=== PATIENT | female | born 1930 | race Caucasian/White ===

== ENCOUNTER 2016-09-04 12:04 | Inpatient (IN) | payer MEDICARE ==
[~2016-09-04] VITALS: Ht 167.6 cm; Wt 74.8 kg
[~2016-09-04 12:04] MED LIST: ALBU0.63 NEB; AMOX1TAB61 PO; AZIT250T6 PO; FLUT1DIS IH; HYDR-971 PO; Hydrocodone/Acetaminophen PO; TIOT18CA IH; TRIA1TAB2 PO; immune globulin; oxygen
--- NOTE | 2016-09-04 12:33 | RAD ---
EXAM: Chest, single view. HISTORY: Shortness of air. COMPARISON: 10/29/2014. FINDINGS: A frontal view of the chest is obtained. There is stable mild left hemithorax volume loss with elevation of the hemidiaphragm and leftward mediastinal shift. There is a stable trace left pleural effusion or pleural thickening with lower lobe airspace disease. There is no pneumothorax. The heart is upper normal in size. IMPRESSION: Stable left hemithorax volume loss with trace left pleural effusion and lower lobe airspace disease. The stability of this finding compared to prior studies favors pleural plaque most scarring rather than infiltrate. This is better characterized on a CT dated 03/01/2014.
[2016-09-04] MEDS ORDERED: PREDNISONE 10 MG TABLET PO ONE (12:45)
[2016-09-04] MEDS ORDERED: IPRATRPIUM/ALBUTEROL 0.5/2.5MG 3 ML NEBU. NEB ONE (12:45)
[2016-09-04] MEDS ORDERED: PRED50TA PO (12:49)
--- NOTE | 2016-09-04 12:49 | PHYS DOC ---
Past Medical History Past Medical History: COPD, Hypertension, Lung Disease, Pneumonia, Other Additional Past Medical Histor: STOMACH ULCERS,BRONCHIECTASIS Past Surgical History: Appendectomy, Hip Replacement, Hysterectomy, Knee Replacement, Tonsillectomy, Other Additional Past Surgical Histo: SHOULDER, L LOBECTOMY,BLADDER,CATARACT, RECTOCELE, RT KNEE, Alcohol Use: None Drug Use: None Adult General Chief Complaint Chief Complaint: SHORTNESS OF BREATH HPI HPI 85-year-old female presenting to the emergency department today with shortness of breath for greater than 24 hours. It is associated with cough without fever. She has been using her nebulizer at home with mild relief. She also has a Spiriva inhaler. She has a history of left pulmonary lobectomy it is worse with exertion. Improved with rest. She denies fevers or chills. Her cough is nonproductive. Location lungs. Duration intermittent. She denies hemoptysis, unilateral leg swelling, personal or family history of blood clotting disorders. Review of systems is negative for chest pain neck pain back pain or shoulder pain. Negative for diaphoresis nausea vomiting. She denies bloody stools. All other review of systems is negative unless otherwise noted in history of present illness. Review of Systems Review of Systems SEE ABOVE. Current Medications Current Medications Current Medications Medications (Trade) Dose Ordered Sig/Sudhakar Start Time Stop Time Status Last Admin Dose Admin Albuterol/ Ipratropium (Duoneb) 3 ml 1X ONCE 09/04/16 12:45 09/04/16 12:46 DC 09/04/16 12:32 3 ML Prednisone (Prednisone) 50 mg 1X ONCE 09/04/16 12:45 09/04/16 12:46 DC 09/04/16 12:44 50 MG Allergies Allergies Allergies Coded Allergies Type Severity Reaction Last Updated Verified No Known Drug Allergies 09/28/13 No Physical Exam Physical Exam Constitutional: Well developed, well nourished, no acute distress, non-toxic appearance. HENT: Normocephalic, atraumatic, bilateral external ears normal, oropharynx moist, no oral exudates, nose normal. [] Eyes: PERRLA, EOMI, conjunctiva normal, no discharge. Neck: Normal range of motion, no tenderness, supple, no stridor. [] Cardiovascular:Heart rate regular rhythm, no murmur Lungs & Thorax: Wheezing bilaterally with prolonged expiratory phase. No crackles present. Abdomen: Bowel sounds normal, soft, no tenderness, no masses, no pulsatile masses. Skin: Warm, dry, no erythema, no rash. [] Back: No tenderness, no CVA tenderness. Extremities: No tenderness, no cyanosis, no clubbing, ROM intact, no edema. [] Neurologic: Alert and oriented X 3, normal motor function, normal sensory function, no focal deficits noted. Psychologic: Affect normal, judgement normal, mood normal. [] Current Patient Data Vital Signs Vital Signs Date Time Temp Pulse Resp B/P Pulse Ox O2 Delivery O2 Flow Rate FiO2 09/04/16 14:00 78 25 119/66 92 Nasal Cannula 2 09/04/16 12:19 98.2 98.2 Lab Values Laboratory Tests Test 09/04/16 12:45 White Blood Count 6.0x10^3/uL (4.0-11.0) Red Blood Count 3.39x10^6/uL (3.50-5.40) L Hemoglobin 10.9g/dL (12.0-15.5) L Hematocrit 32.9% (36.0-47.0) L Mean Corpuscular Volume 97fL (79-100) Mean Corpuscular Hemoglobin 32pg (25-35) Mean Corpuscular Hemoglobin Concent 33g/dL (31-37) Red Cell Distribution Width 14.2% (11.5-14.5) Platelet Count 178x10^3/uL (140-400) Neutrophils (%) (Auto) 61% (31-73) Lymphocytes (%) (Auto) 26% (24-48) Monocytes (%) (Auto) 9% (0-9) Eosinophils (%) (Auto) 4% (0-3) H Basophils (%) (Auto) 1% (0-3) Neutrophils # (Auto) 3.6x10^3uL (1.8-7.7) Lymphocytes # (Auto) 1.5x10^3/uL (1.0-4.8) Monocytes # (Auto) 0.5x10^3/uL (0.0-1.1) Eosinophils # (Auto) 0.2x10^3/uL (0.0-0.7) Basophils # (Auto) 0.1x10^3/uL (0.0-0.2) Sodium Level 141mmol/L (136-145) Potassium Level 3.5mmol/L (3.5-5.1) Chloride Level 104mmol/L (98-107) Carbon Dioxide Level 33mmol/L (21-32) H Anion Gap 4 (6-14) L Blood Urea Nitrogen 19mg/dL (7-20) Creatinine 0.7mg/dL (0.6-1.0) Estimated GFR (Cockcroft-Gault) 79.9 Glucose Level 93mg/dL (70-99) Calcium Level 9.4mg/dL (8.5-10.1) Total Bilirubin 0.4mg/dL (0.2-1.0) Direct Bilirubin 0.1mg/dL (0.0-0.2) Aspartate Amino Transferase (AST) 18U/L (15-37) Alanine Aminotransferase (ALT) 20U/L (14-59) Alkaline Phosphatase 50U/L (46-116) Troponin I Quantitative 0.036ng/mL (0.000-0.055) LF-Nld-H-Type Natriuretic Peptide 172pg/mL (0-449) Total Protein 7.1g/dL (6.4-8.2) Albumin 3.5g/dL (3.4-5.0) Lipase 80U/L (73-393) Laboratory Tests 09/04/16 12:45 Laboratory Tests 09/04/16 12:45 EKG EKG EKG shows sinus rhythm with a regular rate. [place] is leftward. Intervals show mildly prolonged QRS. ST segments are congruent [] Radiology/Procedures Radiology/Procedures [] Course & Med Decision Making Course & Med Decision Making Pertinent Labs and Imaging studies reviewed. (See chart for details) [] 85-year-old female presenting to the emergency department today with shortness of breath. Vital signs afebrile. Normal heart rate. Blood pressure elevated. Saturating 94% on room air. Patient was not working hard to breathe. She was comfortable in the exam room. Pertinent physical exam shows wheezing bilaterally. No evidence of DVTs of the legs. Blood work obtained. DuoNeb and steroids given in the emergency department. While the patient was in the emergency department her oxygen saturations were noticed to drop into the mid 80s. She is placed on 2 L nasal cannula and unfortunately were unable to get her off the oxygen in the emergency department. CBC shows mild anemia. Chemistry panel unremarkable. Troponin within the reference range of normal. Chest x-ray shows chronic bronchiectasis. She was then admitted to our hospital for further evaluation workup and care. Dragon Disclaimer Dragon Disclaimer This electronic medical record was generated, in whole or in part, using a voice recognition dictation system. Departure Departure Impression: Primary Impression: Bronchiectasis Additional Impressions: COPD exacerbation Hypoxia Disposition: HOME, SELF-CARE Condition: STABLE Referrals: MICK HOUGH MD (PCP) Patient Instructions: Shortness of Breath, [id number] Additional Instructions: Thank you for allowing us to participate in your care today. Followup with your primary care physician in 3 days if your symptoms do not improve. If you do not have a primary care provider you can ask for a list of our primary care providers. Return to the emergency department you have any new or concerning findings. This should be evaluated by the primary care physician and any necessary consulting services for continued management within a few days after discharge. Return to emergency room if you have any new or concerning symptoms including but not limited to fever, chills, nausea, vomiting, intractable pain, any new rashes, chest pain, shortness of air, uncontrolled bleeding, difficulty breathing, and/or vision loss. Scripts Prednisone 50 Mg [id number] Mg PO DAILY #4 TAB Prov:STARLA NAVARRO MD 09/04/16 Problem Qualifiers STARLA NAVARRO MD Sep 04, 2016 12:49
[2016-09-04 13:19] LABS: BASO # 0.1 x10^3/uL (0.0-0.2); BASO % 1 % (0-3); EOS % 4 % (0-3); HEMATOCRIT 32.9 % (36.0-47.0); HEMOGLOBIN 10.9 g/dL (12.0-15.5); LYMPH # 1.5 x10^3/uL (1.0-4.8); LYMPH % 26 % (24-48); MEAN CORPUSCULAR HEMOGLOBIN 32 pg (25-35); MEAN CORPUSCULAR HGB CONC 33 g/dL (31-37); MEAN CORPUSCULAR VOLUME 97 fL (79-100); MONO % 9 % (0-9); NEUT % 61 % (31-73); PLATELET COUNT 178 x10^3/uL (140-400); RED BLOOD COUNT 3.39 x10^6/uL (3.50-5.40); RED CELL DISTRIBUTION WIDTH 14.2 % (11.5-14.5)
[2016-09-04 13:27] LABS: CALCIUM 9.4 mg/dL (8.5-10.1); CREATININE 0.7 mg/dL (0.6-1.0); GFR 79.9; POTASSIUM 3.5 mmol/L (3.5-5.1)
[2016-09-04 13:33] LABS: ALBUMIN 3.5 g/dL (3.4-5.0); DIRECT BILIRUBIN 0.1 mg/dL (0.0-0.2); TOTAL BILIRUBIN 0.4 mg/dL (0.2-1.0); TOTAL PROTEIN 7.1 g/dL (6.4-8.2)
--- NOTE | 2016-09-04 13:42 | EKG ---
[facility] [address] [place] [address] Test Date: 2016-09-04 Test Time: 12:19:28 Pat Name: GISELLE KEITH Department: Room: Gender: F [employer]: : [id number] Requested By: STARLA NAVARRO Order Number: [id number] Reading MD: Esther Vogel Measurements Intervals [place] Rate: 80 P: -119 MO: 134 QRS: -24 QRSD: 114 T: 52 QT: 358 QTc: 416 Interpretive Statements SINUS RHYTHM LEFTWARD AXIS T ABNORMALITY IN HIGH LATERAL LEADS ABNORMAL ECG Electronically Signed On 09-05-2016 19:16:06 CDT by Esther Vogel
[2016-09-04] MEDS ORDERED: ONDANSETRON PF 4 MG/2 ML VIAL. IV PRN (14:30)
[2016-09-04] MEDS ORDERED: MORPHINE SULFATE 2 MG/ML DISP.SYRIN. IV PRN (14:30)
[2016-09-04] MEDS: IPRATRPIUM/ALBUTEROL 0.5/2.5MG 3 ML NEBU. NEB SCH ×2 (15:26→19:24)
[2016-09-04 15:28] VITALS: BP 141/79
[2016-09-04 19:00] VITALS: BP 112/54
[2016-09-04 23:00] VITALS: BP 98/53
[2016-09-05 02:42] LABS: BASO % 1 % (0-3); EOS % 0 % (0-3); LYMPH # 0.4 x10^3/uL (1.0-4.8); LYMPH % 7 % (24-48); MEAN CORPUSCULAR HEMOGLOBIN 31 pg (25-35); MEAN CORPUSCULAR HGB CONC 32 g/dL (31-37); MEAN CORPUSCULAR VOLUME 97 fL (79-100); MONO % 1 % (0-9); NEUT % 91 % (31-73); PLATELET COUNT 187 x10^3/uL (140-400); RED BLOOD COUNT 3.51 x10^6/uL (3.50-5.40); RED CELL DISTRIBUTION WIDTH 14.6 % (11.5-14.5); WHITE BLOOD COUNT 5.2 x10^3/uL (4.0-11.0)
[2016-09-05 02:59] LABS: CALCIUM 9.2 mg/dL (8.5-10.1); CREATININE 1.2 mg/dL (0.6-1.0); GFR 42.9; POTASSIUM 3.7 mmol/L (3.5-5.1)
[2016-09-05 03:28] VITALS: BP 112/64
[2016-09-05 03:48] LABS: PLT ESTIMATE ADEQUATE (ADEQUATE)
[2016-09-05 07:25] VITALS: BP 137/78
[2016-09-05] MEDS: IPRATRPIUM/ALBUTEROL 0.5/2.5MG 3 ML NEBU. NEB SCH ×4 (07:33→19:18)
--- NOTE | 2016-09-05 10:41 | PDOC ---
GENERAL General: see dictated H&P. Problems: VITAL SIGNS Vital Signs: Vital Signs Date Time Temp Pulse Resp B/P Pulse Ox O2 Delivery O2 Flow Rate FiO2 09/05/16 07:56 Nasal Cannula 2.0 09/05/16 07:35 99 09/05/16 07:25 97.7 82 18 137/78 97.7 I & O I & O Intake and Output 09/05/16 07:00 Intake Total 200 ml Output Total 500 ml Balance -300 ml Intake Oral 200 ml Output Urine Total 500 ml ALLERGIES Allergies: Allergies Coded Allergies Type Severity Reaction Last Updated Verified No Known Drug Allergies 09/28/13 No MEDS Medications: Current Medications Medications (Trade) Dose Ordered Sig/Sudhakar Start Time Stop Time Status Last Admin Dose Admin Albuterol/ Ipratropium (Duoneb) 3 ml RTQID 09/04/16 16:00 09/05/16 15:59 09/05/16 07:33 3 ML Morphine Sulfate 2 mg PRN Q2HR PRN 09/04/16 14:30 09/05/16 14:29 Ondansetron HCl (Zofran) 4 mg PRN Q8HRS PRN 09/04/16 14:30 09/05/16 14:29 Prednisone (Prednisone) 50 mg 1X ONCE 09/04/16 12:45 09/04/16 12:46 DC 09/04/16 12:44 50 MG LAB Lab: Laboratory Tests Test 09/04/16 12:45 09/04/16 20:30 09/05/16 02:00 White Blood Count 6.0x10^3/uL (4.0-11.0) 5.2x10^3/uL (4.0-11.0) Red Blood Count 3.39x10^6/uL (3.50-5.40) 3.51x10^6/uL (3.50-5.40) Hemoglobin 10.9g/dL (12.0-15.5) 11.0g/dL (12.0-15.5) Hematocrit 32.9% (36.0-47.0) 34.0% (36.0-47.0) Mean Corpuscular Volume 97fL (79-100) 97fL (79-100) Mean Corpuscular Hemoglobin 32pg (25-35) 31pg (25-35) Mean Corpuscular Hemoglobin Concent 33g/dL (31-37) 32g/dL (31-37) Red Cell Distribution Width 14.2% (11.5-14.5) 14.6% (11.5-14.5) Platelet Count 178x10^3/uL (140-400) 187x10^3/uL (140-400) Neutrophils (%) (Auto) 61% (31-73) 91% (31-73) Lymphocytes (%) (Auto) 26% (24-48) 7% (24-48) Monocytes (%) (Auto) 9% (0-9) 1% (0-9) Eosinophils (%) (Auto) 4% (0-3) 0% (0-3) Basophils (%) (Auto) 1% (0-3) 1% (0-3) Neutrophils # (Auto) 3.6x10^3uL (1.8-7.7) 4.7x10^3uL (1.8-7.7) Lymphocytes # (Auto) 1.5x10^3/uL (1.0-4.8) 0.4x10^3/uL (1.0-4.8) Monocytes # (Auto) 0.5x10^3/uL (0.0-1.1) 0.1x10^3/uL (0.0-1.1) Eosinophils # (Auto) 0.2x10^3/uL (0.0-0.7) 0.0x10^3/uL (0.0-0.7) Basophils # (Auto) 0.1x10^3/uL (0.0-0.2) 0.0x10^3/uL (0.0-0.2) Sodium Level 141mmol/L (136-145) 143mmol/L (136-145) Potassium Level 3.5mmol/L (3.5-5.1) 3.7mmol/L (3.5-5.1) Chloride Level 104mmol/L (98-107) 101mmol/L (98-107) Carbon Dioxide Level 33mmol/L (21-32) 32mmol/L (21-32) Anion Gap 4 (6-14) 10 (6-14) Blood Urea Nitrogen 19mg/dL (7-20) 19mg/dL (7-20) Creatinine 0.7mg/dL (0.6-1.0) 1.2mg/dL (0.6-1.0) Estimated GFR (Cockcroft-Gault) 79.9 42.9 Glucose Level 93mg/dL (70-99) 191mg/dL (70-99) Calcium Level 9.4mg/dL (8.5-10.1) 9.2mg/dL (8.5-10.1) Total Bilirubin 0.4mg/dL (0.2-1.0) Direct Bilirubin 0.1mg/dL (0.0-0.2) Aspartate Amino Transf (AST/SGOT) 18U/L (15-37) Alanine Aminotransferase (ALT/SGPT) 20U/L (14-59) Alkaline Phosphatase 50U/L (46-116) Troponin I Quantitative 0.036ng/mL (0.000-0.055) 0.028ng/mL (0.000-0.055) 0.024ng/mL (0.000-0.055) NP-Tip-B-Type Natriuretic Peptide 172pg/mL (0-449) Total Protein 7.1g/dL (6.4-8.2) Albumin 3.5g/dL (3.4-5.0) Lipase 80U/L (73-393) Segmented Neutrophils % 90% (35-66) Band Neutrophils % 1% (0-9) Lymphocytes % 9% (24-48) Platelet Estimate Adequate (ADEQUATE) KHANH LUGO MD Sep 05, 2016 10:41
[2016-09-05] MEDS ORDERED: HYDROCODONE/APAP 5/325MG TABLET. PO PRN (10:45)
[2016-09-05 10:53] VITALS: BP 125/74
[2016-09-05] MEDS ORDERED: IPRATRPIUM/ALBUTEROL 0.5/2.5MG 3 ML NEBU. NEB SCH (12:00)
[2016-09-05] MEDS ORDERED: TRIAMTERENE/HCTZ 37.5/25MG TABLET. PO SCH (12:00)
[2016-09-05] MEDS ORDERED: PREDNISONE 10 MG TABLET PO ONE (12:00)
--- NOTE | 2016-09-05 13:09 | PDOC ---
PULMONARY PROGRESS NOTES Vitals Vital Signs Date Time Temp Pulse Resp B/P Pulse Ox O2 Delivery O2 Flow Rate FiO2 09/05/16 11:08 99 Nasal Cannula 2.0 09/05/16 10:53 97.7 85 18 125/74 97.7 General: Alert Lungs: Crackles Cardiovascular: S1, S2 Abdomen: Soft Extremities: No Edema Labs Laboratory Tests Test 09/04/16 12:45 09/04/16 20:30 09/05/16 02:00 White Blood Count 6.0x10^3/uL (4.0-11.0) 5.2x10^3/uL (4.0-11.0) Red Blood Count 3.39x10^6/uL (3.50-5.40) 3.51x10^6/uL (3.50-5.40) Hemoglobin 10.9g/dL (12.0-15.5) 11.0g/dL (12.0-15.5) Hematocrit 32.9% (36.0-47.0) 34.0% (36.0-47.0) Mean Corpuscular Volume 97fL (79-100) 97fL (79-100) Mean Corpuscular Hemoglobin 32pg (25-35) 31pg (25-35) Mean Corpuscular Hemoglobin Concent 33g/dL (31-37) 32g/dL (31-37) Red Cell Distribution Width 14.2% (11.5-14.5) 14.6% (11.5-14.5) Platelet Count 178x10^3/uL (140-400) 187x10^3/uL (140-400) Neutrophils (%) (Auto) 61% (31-73) 91% (31-73) Lymphocytes (%) (Auto) 26% (24-48) 7% (24-48) Monocytes (%) (Auto) 9% (0-9) 1% (0-9) Eosinophils (%) (Auto) 4% (0-3) 0% (0-3) Basophils (%) (Auto) 1% (0-3) 1% (0-3) Neutrophils # (Auto) 3.6x10^3uL (1.8-7.7) 4.7x10^3uL (1.8-7.7) Lymphocytes # (Auto) 1.5x10^3/uL (1.0-4.8) 0.4x10^3/uL (1.0-4.8) Monocytes # (Auto) 0.5x10^3/uL (0.0-1.1) 0.1x10^3/uL (0.0-1.1) Eosinophils # (Auto) 0.2x10^3/uL (0.0-0.7) 0.0x10^3/uL (0.0-0.7) Basophils # (Auto) 0.1x10^3/uL (0.0-0.2) 0.0x10^3/uL (0.0-0.2) Sodium Level 141mmol/L (136-145) 143mmol/L (136-145) Potassium Level 3.5mmol/L (3.5-5.1) 3.7mmol/L (3.5-5.1) Chloride Level 104mmol/L (98-107) 101mmol/L (98-107) Carbon Dioxide Level 33mmol/L (21-32) 32mmol/L (21-32) Anion Gap 4 (6-14) 10 (6-14) Blood Urea Nitrogen 19mg/dL (7-20) 19mg/dL (7-20) Creatinine 0.7mg/dL (0.6-1.0) 1.2mg/dL (0.6-1.0) Estimated GFR (Cockcroft-Gault) 79.9 42.9 Glucose Level 93mg/dL (70-99) 191mg/dL (70-99) Calcium Level 9.4mg/dL (8.5-10.1) 9.2mg/dL (8.5-10.1) Total Bilirubin 0.4mg/dL (0.2-1.0) Direct Bilirubin 0.1mg/dL (0.0-0.2) Aspartate Amino Transf (AST/SGOT) 18U/L (15-37) Alanine Aminotransferase (ALT/SGPT) 20U/L (14-59) Alkaline Phosphatase 50U/L (46-116) Troponin I Quantitative 0.036ng/mL (0.000-0.055) 0.028ng/mL (0.000-0.055) 0.024ng/mL (0.000-0.055) FF-Giw-K-Type Natriuretic Peptide 172pg/mL (0-449) Total Protein 7.1g/dL (6.4-8.2) Albumin 3.5g/dL (3.4-5.0) Lipase 80U/L (73-393) Segmented Neutrophils % 90% (35-66) Band Neutrophils % 1% (0-9) Lymphocytes % 9% (24-48) Platelet Estimate Adequate (ADEQUATE) Laboratory Tests Test 09/04/16 20:30 09/05/16 02:00 Troponin I Quantitative 0.028ng/mL (0.000-0.055) 0.024ng/mL (0.000-0.055) White Blood Count 5.2x10^3/uL (4.0-11.0) Red Blood Count 3.51x10^6/uL (3.50-5.40) Hemoglobin 11.0g/dL (12.0-15.5) Hematocrit 34.0% (36.0-47.0) Mean Corpuscular Volume 97fL (79-100) Mean Corpuscular Hemoglobin 31pg (25-35) Mean Corpuscular Hemoglobin Concent 32g/dL (31-37) Red Cell Distribution Width 14.6% (11.5-14.5) Platelet Count 187x10^3/uL (140-400) Neutrophils (%) (Auto) 91% (31-73) Lymphocytes (%) (Auto) 7% (24-48) Monocytes (%) (Auto) 1% (0-9) Eosinophils (%) (Auto) 0% (0-3) Basophils (%) (Auto) 1% (0-3) Neutrophils # (Auto) 4.7x10^3uL (1.8-7.7) Lymphocytes # (Auto) 0.4x10^3/uL (1.0-4.8) Monocytes # (Auto) 0.1x10^3/uL (0.0-1.1) Eosinophils # (Auto) 0.0x10^3/uL (0.0-0.7) Basophils # (Auto) 0.0x10^3/uL (0.0-0.2) Segmented Neutrophils % 90% (35-66) Band Neutrophils % 1% (0-9) Lymphocytes % 9% (24-48) Platelet Estimate Adequate (ADEQUATE) Sodium Level 143mmol/L (136-145) Potassium Level 3.7mmol/L (3.5-5.1) Chloride Level 101mmol/L (98-107) Carbon Dioxide Level 32mmol/L (21-32) Anion Gap 10 (6-14) Blood Urea Nitrogen 19mg/dL (7-20) Creatinine 1.2mg/dL (0.6-1.0) Estimated GFR (Cockcroft-Gault) 42.9 Glucose Level 191mg/dL (70-99) Calcium Level 9.2mg/dL (8.5-10.1) Medications Active Scripts Medications Dose Route/Sig Days Date Category Prednisone 50 Mg Tablet 50 Mg PO DAILY 09/04/16 Rx Augmentin 875-125 Tablet (Amoxicillin/Potassium Clav) 1 Each Tablet 1 Tab PO BID 03/18/16 Rx [Hydrocodone/Acetaminophen] 1 TAB Tablet 1 Tab PO PRN Q3HRS PRN 02/01/15 Rx Azithromycin Tablet (Azithromycin) 250 Mg Tablet 1 Pkg PO UD 03/01/14 Reported Maxzide 37.5 Mg-25 Mg Tablet (Triamterene/Hydrochlorothiazid) 1 Each Tablet 1 Tab PO DAILY 03/01/14 Reported Albuterol Sulfate Neb Soln (Albuterol Sulfate) 0.63 Mg/3 Ml Vial.neb 1 Vial NEB QID 03/01/14 Reported Spiriva (Tiotropium [place]) 18 Mcg Cap.w.dev 1 Cap IH DAILY 03/01/14 Reported Advair 100-50 Diskus (Fluticasone/Salmeterol) 1 Each Disk.w.dev 1 Puff IH BID 03/01/14 Reported Impression . full consult dictated acute exac bronchiectasis ARELY SINGLETON MD Sep 05, 2016 13:09
--- NOTE | 2016-09-05 13:12 | HP ---
ADMIT DATE: 09/04/2016 CHIEF COMPLAINT AND HISTORY OF PRESENT ILLNESS: This is an 85-year-old white female who was admitted through the Emergency Room with shortness of breath and chest tightness for the last 2-3 days. It was associated with cough. There was no fever. She had been using nebulizers as well as her Spiriva at home without much relief. She has a history of prior COPD and bronchiectasis. Her cough had been mainly nonproductive. PAST MEDICAL HISTORY: Remarkable for the COPD, bronchiectasis, hypertension, pneumonia and peptic ulcer disease. PAST SURGICAL HISTORY: Remarkable for hip replacement, knee replacement, hysterectomy, tonsillectomy, shoulder surgery, left lung lobectomy, cataract, rectocele repair and bladder surgery. MEDICATIONS: Brought with the patient, listed on the computer and have been addressed. ALLERGIES: She has no known drug allergies. SOCIAL HISTORY: She is nonsmoker, nondrinker, does not use drugs. FAMILY HISTORY: Noncontributory. REVIEW OF SYSTEMS: Remarkable for increasing shortness of breath, nonproductive cough and tightness in her chest. All is worse except for the cough with exertion. PHYSICAL EXAMINATION: GENERAL: She is a well-developed, well-nourished white female in no acute distress at rest. VITAL SIGNS: Stable. She is afebrile. HEAD, EYES, EARS, NOSE AND THROAT: Unremarkable. NECK: Supple without adenopathy or thyromegaly. CHEST: Reveals bilateral wheezes which are mild. HEART: Regular rate and rhythm without S3, S4 or murmur. ABDOMEN: Soft, nontender, without hepatosplenomegaly or mass. EXTREMITIES: Without cyanosis, clubbing or edema. NEUROLOGIC: She is intact. The patient did receive one dose of 50 mg of prednisone in the Emergency Room and I have repeated it today, although I cannot get the computer to repeat it on a daily basis on the ordering module. Hemoglobin is 10.9, CO2 is slightly elevated at 33. IMPRESSION: Exacerbation of chronic obstructive pulmonary disease with hypoxia. PLAN: The patient has been admitted. Steroids have been continued. Pulmonary will be consulted and the patient will be monitored, managed and treated appropriately. KHANH LUGO MD DR: CHAZ/miguel ángel JOB#: [id number] / [id number]
[2016-09-05] MEDS: AZITHROMYCIN 250 MG TABLET. PO SCH (13:49)
[2016-09-05 14:57] VITALS: BP 118/64
[2016-09-05 19:00] VITALS: BP 123/76
[2016-09-05] MEDS: BENZOCAINE/MENTHOL LOZENGE. PO PRN (19:22)
[2016-09-05 23:00] VITALS: BP 114/70
--- NOTE | 2016-09-05 23:28 | CONS ---
DATE OF CONSULTATION: 09/05/2016 ATTENDING PHYSICIAN: Dr. Ibrahima Toure. CONSULTING PHYSICIAN: Dr. Singleton. REASON FOR CONSULTATION: The patient seen in pulmonary consultation at the request of Dr. Reyes for increasing shortness of air. HISTORY OF PRESENT ILLNESS: The patient is an 85-year-old well known to me from previous hospitalization in outpatient visit. She has underlying bronchiectasis. She has immunodeficiency, undergoing monthly injection of IgG. She presents with increasing shortness of breath over the last several days. In fact, she had an appointment to see me in next Tuesday. She denied fever, chills ____ productive of discolored sputum, it is now clear. She is also normally at home on Zithromax for anti-inflammatory properties 1 p.o. daily. PAST MEDICAL HISTORY: COPD with bronchiectasis, previous lobectomy. She also has previous pneumonia. She has had multiple bronchoscopies, prior history of stomach ulcer, hypertension. PAST SURGICAL HISTORY: Status post lobectomy, hysterectomy, tonsillectomy and bladder cancer. ALLERGIES: No known drug allergies. CURRENT MEDICATIONS: List was reviewed. Please see the MRAD. SOCIAL HISTORY: She has never smoked. REVIEW OF SYSTEMS: As indicated above, otherwise, a 10-point system was reviewed and negative. PHYSICAL EXAMINATION: GENERAL: The patient was in no significant respiratory distress. VITAL SIGNS: Stable. O2 saturation was greater than 92%. She was afebrile. HEENT: Eyes, the sclerae were nonicteric. NECK: Jugular venous distention was not elevated. No lymphadenopathy. CHEST: Crackles in the bases. No wheezes. CARDIOVASCULAR: Regular rate and rhythm with S1, S2, no S3. ABDOMEN: Soft, nontender, nondistended. EXTREMITIES: No clubbing, cyanosis or edema. NEUROLOGIC: The patient was awake, alert, following commands. A detailed neuro exam was not performed. LABORATORY DATA: Reviewed. White count was normal. Hemoglobin and hematocrit were noted. Electrolytes were noted. Chest x-ray revealed no acute findings. IMPRESSION: 1. Acute on chronic respiratory failure secondary to acute exacerbation of bronchiectasis. 2. Acute exacerbation of chronic obstructive pulmonary disease secondary to nonspecific bronchitis. 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 PLAN: 1. Continue current steroids and Zithromax. 2. Vibrating vest. 3. Home medications. 4. Nebulized treatments. I do appreciate the privilege in sharing in this patient's care. ARELY SINGLETON MD DR: FIDE/miguel ángel JOB#: [id number] / [id number]
[2016-09-06 02:54] VITALS: BP 121/74
[2016-09-06] MEDS: IPRATRPIUM/ALBUTEROL 0.5/2.5MG 3 ML NEBU. NEB SCH ×4 (07:43→20:17)
--- NOTE | 2016-09-06 08:36 | PDOC ---
Provider Note Provider Note vss, no temp, still dyspneic w/ wheezes- will hold hctz re lower bp, add temaz at her request, on pred 50 now MICK HOUGH MD Sep 06, 2016 08:35
[2016-09-06] MEDS ORDERED: TEMAZEPAM 15 MG CAPSULE PO PRN (08:45)
[2016-09-06] MEDS ORDERED: NON FORMULARY ITEM (Tiotropium Bromide (Spiriva) 1 CAP) IH SCH (09:00)
--- NOTE | 2016-09-06 09:37 | PDOC ---
PULMONARY PROGRESS NOTES Subjective pt still soa Vitals Vital Signs Date Time Temp Pulse Resp B/P Pulse Ox O2 Delivery O2 Flow Rate FiO2 09/06/16 07:44 95 Nasal Cannula 2.0 09/06/16 02:54 97.7 71 20 121/74 97.7 ROS: No Nausea, No Chest Pain, No Abdominal Pain, No Increase Cough General: Alert Lungs: Crackles Cardiovascular: S1, S2 Abdomen: Soft Extremities: No Edema Labs Laboratory Tests Test 09/04/16 12:45 09/04/16 20:30 09/05/16 02:00 White Blood Count 6.0x10^3/uL (4.0-11.0) 5.2x10^3/uL (4.0-11.0) Red Blood Count 3.39x10^6/uL (3.50-5.40) 3.51x10^6/uL (3.50-5.40) Hemoglobin 10.9g/dL (12.0-15.5) 11.0g/dL (12.0-15.5) Hematocrit 32.9% (36.0-47.0) 34.0% (36.0-47.0) Mean Corpuscular Volume 97fL (79-100) 97fL (79-100) Mean Corpuscular Hemoglobin 32pg (25-35) 31pg (25-35) Mean Corpuscular Hemoglobin Concent 33g/dL (31-37) 32g/dL (31-37) Red Cell Distribution Width 14.2% (11.5-14.5) 14.6% (11.5-14.5) Platelet Count 178x10^3/uL (140-400) 187x10^3/uL (140-400) Neutrophils (%) (Auto) 61% (31-73) 91% (31-73) Lymphocytes (%) (Auto) 26% (24-48) 7% (24-48) Monocytes (%) (Auto) 9% (0-9) 1% (0-9) Eosinophils (%) (Auto) 4% (0-3) 0% (0-3) Basophils (%) (Auto) 1% (0-3) 1% (0-3) Neutrophils # (Auto) 3.6x10^3uL (1.8-7.7) 4.7x10^3uL (1.8-7.7) Lymphocytes # (Auto) 1.5x10^3/uL (1.0-4.8) 0.4x10^3/uL (1.0-4.8) Monocytes # (Auto) 0.5x10^3/uL (0.0-1.1) 0.1x10^3/uL (0.0-1.1) Eosinophils # (Auto) 0.2x10^3/uL (0.0-0.7) 0.0x10^3/uL (0.0-0.7) Basophils # (Auto) 0.1x10^3/uL (0.0-0.2) 0.0x10^3/uL (0.0-0.2) Sodium Level 141mmol/L (136-145) 143mmol/L (136-145) Potassium Level 3.5mmol/L (3.5-5.1) 3.7mmol/L (3.5-5.1) Chloride Level 104mmol/L (98-107) 101mmol/L (98-107) Carbon Dioxide Level 33mmol/L (21-32) 32mmol/L (21-32) Anion Gap 4 (6-14) 10 (6-14) Blood Urea Nitrogen 19mg/dL (7-20) 19mg/dL (7-20) Creatinine 0.7mg/dL (0.6-1.0) 1.2mg/dL (0.6-1.0) Estimated GFR (Cockcroft-Gault) 79.9 42.9 Glucose Level 93mg/dL (70-99) 191mg/dL (70-99) Calcium Level 9.4mg/dL (8.5-10.1) 9.2mg/dL (8.5-10.1) Total Bilirubin 0.4mg/dL (0.2-1.0) Direct Bilirubin 0.1mg/dL (0.0-0.2) Aspartate Amino Transf (AST/SGOT) 18U/L (15-37) Alanine Aminotransferase (ALT/SGPT) 20U/L (14-59) Alkaline Phosphatase 50U/L (46-116) Troponin I Quantitative 0.036ng/mL (0.000-0.055) 0.028ng/mL (0.000-0.055) 0.024ng/mL (0.000-0.055) EA-Jem-K-Type Natriuretic Peptide 172pg/mL (0-449) Total Protein 7.1g/dL (6.4-8.2) Albumin 3.5g/dL (3.4-5.0) Lipase 80U/L (73-393) Segmented Neutrophils % 90% (35-66) Band Neutrophils % 1% (0-9) Lymphocytes % 9% (24-48) Platelet Estimate Adequate (ADEQUATE) Medications Active Scripts Medications Dose Route/Sig Days Date Category Prednisone 50 Mg Tablet 50 Mg PO DAILY 09/04/16 Rx Augmentin 875-125 Tablet (Amoxicillin/Potassium Clav) 1 Each Tablet 1 Tab PO BID 03/18/16 Rx [Hydrocodone/Acetaminophen] 1 TAB Tablet 1 Tab PO PRN Q3HRS PRN 02/01/15 Rx Azithromycin Tablet (Azithromycin) 250 Mg Tablet 1 Pkg PO UD 03/01/14 Reported Maxzide 37.5 Mg-25 Mg Tablet (Triamterene/Hydrochlorothiazid) 1 Each Tablet 1 Tab PO DAILY 03/01/14 Reported Albuterol Sulfate Neb Soln (Albuterol Sulfate) 0.63 Mg/3 Ml Vial.neb 1 Vial NEB QID 03/01/14 Reported Spiriva (Tiotropium [place]) 18 Mcg Cap.w.dev 1 Cap IH DAILY 03/01/14 Reported Advair 100-50 Diskus (Fluticasone/Salmeterol) 1 Each Disk.w.dev 1 Puff IH BID 03/01/14 Reported Impression . IMPRESSION: 1. Acute on chronic respiratory failure secondary to acute exacerbation of bronchiectasis. 2. Acute exacerbation of chronic obstructive pulmonary disease secondary to nonspecific bronchitis. 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 Plan . 1. Continue current steroids and Zithromax. 2. Vibrating vest. 3. Home medications. 4. Nebulized treatments. 5. Home in am, this is mostly related to a viral infection she will need time to improve ARELY SINGLETON MD Sep 06, 2016 09:37
[2016-09-06] MEDS: BENZOCAINE/MENTHOL LOZENGE. PO PRN (10:09)
[2016-09-06] MEDS: AZITHROMYCIN 250 MG TABLET. PO SCH (10:09)
[2016-09-06 11:00] VITALS: BP 125/82
[2016-09-06 15:00] VITALS: BP 119/56
[2016-09-06 19:00] VITALS: BP 112/63
[2016-09-06 23:00] VITALS: BP 95/98
[2016-09-07 07:00] VITALS: BP 124/74
[2016-09-07] MEDS: IPRATRPIUM/ALBUTEROL 0.5/2.5MG 3 ML NEBU. NEB SCH ×2 (07:11→10:50)
--- NOTE | 2016-09-07 07:58 | DISCH ---
DISCHARGE INSTRUCTIONS Condition on Discharge Condition on Discharge: Stable Activity After Discharge Activity Instructions for Disc: No restrictions Diet after Discharge Diet after Discharge: Regular Follow-Up Follow up with: as scheduled MICK HOUGH MD Sep 07, 2016 07:58
--- NOTE | 2016-09-07 08:02 | PDOC ---
Provider Note Provider Note [id number] MICK HOUGH MD Sep 07, 2016 08:02
[2016-09-07] MEDS ORDERED: PREDNISONE 20 MG TABLET PO ONE (08:30)
[2016-09-07] MEDS: AZITHROMYCIN 250 MG TABLET. PO SCH (08:37)
--- NOTE | 2016-09-07 09:18 | PDOC ---
PULMONARY PROGRESS NOTES Subjective Pt feels better wants to go home Vitals Vital Signs Date Time Temp Pulse Resp B/P Pulse Ox O2 Delivery O2 Flow Rate FiO2 09/07/16 08:00 Nasal Cannula 2.0 09/07/16 07:12 85 09/07/16 07:00 98.1 86 17 124/74 98.1 ROS: No Nausea, No Chest Pain, No Abdominal Pain, No Increase Cough General: Alert Lungs: Other (decrease bases) Cardiovascular: S1, S2 Abdomen: Soft Neuro Exam: Alert Extremities: No Edema Skin: Warm Labs Laboratory Tests Test 09/06/16 11:52 Glucose (Fingerstick) 87mg/dL (70-99) Laboratory Tests Test 09/06/16 11:52 Glucose (Fingerstick) 87mg/dL (70-99) Medications Active Scripts Medications Dose Route/Sig Days Date Category Prednisone 50 Mg Tablet 50 Mg PO DAILY 09/04/16 Rx Augmentin 875-125 Tablet (Amoxicillin/Potassium Clav) 1 Each Tablet 1 Tab PO BID 03/18/16 Rx [Hydrocodone/Acetaminophen] 1 TAB Tablet 1 Tab PO PRN Q3HRS PRN 02/01/15 Rx Azithromycin Tablet (Azithromycin) 250 Mg Tablet 1 Pkg PO UD 03/01/14 Reported Maxzide 37.5 Mg-25 Mg Tablet (Triamterene/Hydrochlorothiazid) 1 Each Tablet 1 Tab PO DAILY 03/01/14 Reported Albuterol Sulfate Neb Soln (Albuterol Sulfate) 0.63 Mg/3 Ml Vial.neb 1 Vial NEB QID 03/01/14 Reported Spiriva (Tiotropium [place]) 18 Mcg Cap.w.dev 1 Cap IH DAILY 03/01/14 Reported Advair 100-50 Diskus (Fluticasone/Salmeterol) 1 Each Disk.w.dev 1 Puff IH BID 03/01/14 Reported Impression . 1. Acute on chronic respiratory failure secondary to acute exacerbation of bronchiectasis. 2. Acute exacerbation of chronic obstructive pulmonary disease secondary to nonspecific bronchitis. 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 Plan . 1. Continue current oxygen and Zithromax. 2. Vibrating vest. 3. Home medications. 4. Nebulized treatments. 5. ok with home today. f/u with Dr Claros as LEON RODRIGUEZ MD Sep 07, 2016 09:18
--- NOTE | 2016-09-07 09:33 | DS ---
DATE OF DISCHARGE: 09/07/2016 HOSPITAL SUMMARY: An 85-year-old with a history of bronchiectasis, who came in with shortness of breath, wheezing and cough, nonproductive sputum. CBC and chemistry profile were unremarkable as was troponin levels and chest x-ray showed no acute change with stable left hemithorax, volume loss from previously noted scarrring. She was treated with oral prednisone and respiratory treatments and is doing better after some prednisone and comfortable to be followed as an outpatient at this point. FINAL DIAGNOSIS: Acute exacerbation of bronchiectasis. OPERATIONS, PROCEDURES, COMPLICATIONS: None. CONSULTATION: Dr. Claros. DISPOSITION: Prednisone 40 mg daily for 3 days, 20 mg daily for 3 days. Continue all home meds the same including daily prophylactic Zithromax and oxygen at home as needed. Follow up with Dr. Claros as scheduled and me as needed and prognosis is guarded. MICK HOUGH MD DR: DENIZ/miguel ángel JOB#: [id number] / [id number]
[2016-09-07 11:00] VITALS: BP 123/80
== END 2016-09-07 12:30 | disposition home or self-care (01) | DRG 189 ==
LOC: ER 12:04 → 5 NORTH 14:15 → OBSVTOIN 14:19
PROVIDERS: ADMIT Family Medicine; ATTEND Family Medicine
DX: J96.21 Acute and chronic respiratory failure with hypoxia (principal); J44.1 Chronic obstructive pulmonary disease with (acute) exacerbation; D80.3 Selective deficiency of immunoglobulin G [IgG] subclasses; J47.1 Bronchiectasis with (acute) exacerbation; Z96.649 Presence of unspecified artificial hip joint; Z96.659 Presence of unspecified artificial knee joint; I10 Essential (primary) hypertension; Z87.01 Personal history of pneumonia (recurrent); Z85.51 Personal history of malignant neoplasm of bladder; Z87.11 Personal history of peptic ulcer disease; Z90.2 Acquired absence of lung [part of]; Z90.49 Acquired absence of other specified parts of digestive tract; Z90.710 Acquired absence of both cervix and uterus; J40 Bronchitis, not specified as acute or chronic
CPT/HCPCS: 36415; 71010; 80048; 80076; 82947; 83690; 83880; 84484; 85007; 85027; 93005; 94250; 94640; 94760; G0379; J7512; J7620; Q0144

== ENCOUNTER 2017-10-14 08:01 | Inpatient (IN) | payer BC ==
[2017-10-14 09:06] LABS: ADD MAN DIFF? NO
[2017-10-14] MEDS: methylPREDNISolone SOD SUCC PF 125 MG/2 ML VIAL. IV (09:06)
[2017-10-14] MEDS: IPRATRPIUM/ALBUTEROL 0.5/2.5MG 3 ML NEBU. NEB ×4 (09:07→20:01)
[2017-10-14 09:12] LABS: BASO % 0 % (0-3); EOS % 0 % (0-3); HEMATOCRIT 36.1 % (36.0-47.0); HEMOGLOBIN 12.1 g/dL (12.0-15.5); LYMPH # 0.6 x10^3/uL (1.0-4.8); LYMPH % 12 % (24-48); MEAN CORPUSCULAR HEMOGLOBIN 33 pg (25-35); MEAN CORPUSCULAR HGB CONC 34 g/dL (31-37); MEAN CORPUSCULAR VOLUME 97 fL (79-100); MONO # 0.2 x10^3/uL (0.0-1.1); MONO % 3 % (0-9); NEUT # 4.2 x10^3uL (1.8-7.7); NEUT % 85 % (31-73); PLATELET COUNT 189 x10^3/uL (140-400); RED BLOOD COUNT 3.71 x10^6/uL (3.50-5.40); RED CELL DISTRIBUTION WIDTH 14.5 % (11.5-14.5); WHITE BLOOD COUNT 4.9 x10^3/uL (4.0-11.0)
[2017-10-14 09:15] LABS: BACTERIA,URINE 0 /HPF (0-FEW); BILIRUBIN,URINE NEGATIVE (NEG); CLARITY,URINE CLEAR; COLOR,URINE YELLOW; GLUCOSE,URINE NEGATIVE (NEG); NITRITE,URINE NEGATIVE (NEG); PROTEIN,URINE NEGATIVE (NEG-TRACE); SQUAMOUS EPITHELIAL CELL,UR FEW /LPF; UROBILINOGEN,URINE 0.2 mg/dL (0.2 mg/dL)
[2017-10-14 09:22] LABS: ANION GAP 7 (6-14); BLOOD UREA NITROGEN 25 mg/dL (7-20); BUN/CREATININE RATIO 28 (6-20); CALCIUM 9.3 mg/dL (8.5-10.1); CARBON DIOXIDE 31 mmol/L (21-32); CHLORIDE 103 mmol/L (98-107); CREATININE 0.9 mg/dL (0.6-1.0); GFR 59.7; GLUCOSE 124 mg/dL (70-99); SODIUM 141 mmol/L (136-145)
[2017-10-14 09:27] LABS: ALBUMIN 3.7 g/dL (3.4-5.0); ALK PHOS 54 U/L (46-116); ALT (SGPT) 23 U/L (14-59); AST (SGOT) 19 U/L (15-37); LIPASE 79 U/L (73-393); TOTAL BILIRUBIN 0.4 mg/dL (0.2-1.0); TOTAL PROTEIN 7.4 g/dL (6.4-8.2)
[2017-10-14 09:34] LABS: CKMB INDEX 1.2 % (0-4); CKMB MASS 1.8 ng/mL (0.0-3.6); CREATINE KINASE 152 U/L (26-192)
[2017-10-14 09:34] LABS: NT-PRO BNP 363 pg/mL (0-449)
[2017-10-14 09:38] LABS: TROPONINI < 0.017 ng/mL (0.000-0.055)
[2017-10-14] MEDS ORDERED: MORPHINE SULFATE 4 MG/ML DISP.SYRIN. IV (10:00)
[2017-10-14] MEDS ORDERED: ONDANSETRON PF 4 MG/2 ML VIAL. IV (10:00)
[2017-10-14] MEDS ORDERED: ACETAMINOPHEN 325 MG TABLET. PO (10:00)
[2017-10-14 10:29] LABS: LACTIC ACID 1.3 mmol/L (0.4-2.0)
[2017-10-14 16:41] LABS: TROPONINI 0.018 ng/mL (0.000-0.055)
[2017-10-14] MEDS ORDERED: HYDROcodone/APAP 5/325MG 1 TAB TABLET PO (18:00)
[2017-10-14] MEDS ORDERED: ACETAMINOPHEN 500 MG TABLET PO (18:00)
[2017-10-14] MEDS: CALCIUM CARB/VIT D3 500/200 TABLET. PO (18:02)
[2017-10-14] MEDS: BUDESONIDE 0.5 MG/2 ML NEBU. NEB ×2 (20:01)
[2017-10-14] MEDS ORDERED: NON FORMULARY ITEM (Albuterol Sulfate (Albuterol Sulfate Neb Soln) 1 VIAL) NEB (21:00)
[2017-10-15 05:39] LABS: ADD MAN DIFF? NO
[2017-10-15 05:45] LABS: BASO % 0 % (0-3); EOS % 0 % (0-3); HEMATOCRIT 30.8 % (36.0-47.0); HEMOGLOBIN 10.3 g/dL (12.0-15.5); LYMPH # 1.1 x10^3/uL (1.0-4.8); LYMPH % 18 % (24-48); MEAN CORPUSCULAR HEMOGLOBIN 33 pg (25-35); MEAN CORPUSCULAR HGB CONC 34 g/dL (31-37); MEAN CORPUSCULAR VOLUME 98 fL (79-100); MONO # 0.5 x10^3/uL (0.0-1.1); MONO % 9 % (0-9); NEUT # 4.7 x10^3uL (1.8-7.7); NEUT % 74 % (31-73); PLATELET COUNT 160 x10^3/uL (140-400); RED BLOOD COUNT 3.15 x10^6/uL (3.50-5.40); RED CELL DISTRIBUTION WIDTH 14.2 % (11.5-14.5); WHITE BLOOD COUNT 6.4 x10^3/uL (4.0-11.0)
[2017-10-15 06:14] LABS: ALK PHOS 41 U/L (46-116); ALT (SGPT) 19 U/L (14-59); ANION GAP 5 (6-14); AST (SGOT) 14 U/L (15-37); BLOOD UREA NITROGEN 24 mg/dL (7-20); BUN/CREATININE RATIO 30 (6-20); CALCIUM 8.9 mg/dL (8.5-10.1); CARBON DIOXIDE 34 mmol/L (21-32); CHLORIDE 103 mmol/L (98-107); CREATININE 0.8 mg/dL (0.6-1.0); GFR 68.3; GLUCOSE 104 mg/dL (70-99); POTASSIUM 3.7 mmol/L (3.5-5.1); SODIUM 142 mmol/L (136-145); TOTAL BILIRUBIN 0.3 mg/dL (0.2-1.0); TOTAL PROTEIN 6.1 g/dL (6.4-8.2)
[2017-10-15] MEDS: IPRATRPIUM/ALBUTEROL 0.5/2.5MG 3 ML NEBU. NEB ×4 (07:31→21:31)
[2017-10-15] MEDS: LACTOBACILLUS RHAMNOSUS GG 1 CAPSULE. PO ×2 (08:58→20:55)
[2017-10-15] MEDS: FLUTICASONE 50MCG/NASAL SPRAY 16GM BOTTLE. NS (08:58)
[2017-10-15] MEDS: TRIAMTERENE/HCTZ 37.5/25MG TABLET. PO (08:58)
[2017-10-15] MEDS: CALCIUM CARB/VIT D3 500/200 TABLET. PO ×2 (08:59→16:54)
[2017-10-15] MEDS: MULTIVITAMIN with MINERAL TABLET. PO (08:59)
[2017-10-15] MEDS ORDERED: NON FORMULARY ITEM (Alendronate Sodium (Fosamax) 1 TAB) PO (09:00)
[2017-10-15] MEDS ORDERED: NON FORMULARY ITEM (Tiotropium Bromide (Spiriva) 1 CAP) IH (09:00)
[2017-10-15] MEDS ORDERED: BUDESONIDE 0.5 MG/2 ML NEBU. NEB (20:00)
[2017-10-15] MEDS: BUDESONIDE 0.5 MG/2 ML NEBU. NEB (21:31)
[2017-10-16] MEDS: BUDESONIDE 0.5 MG/2 ML NEBU. NEB ×2 (07:33→20:24)
[2017-10-16] MEDS: IPRATRPIUM/ALBUTEROL 0.5/2.5MG 3 ML NEBU. NEB ×4 (07:33→20:24)
[2017-10-16] MEDS: LACTOBACILLUS RHAMNOSUS GG 1 CAPSULE. PO ×2 (08:25→20:57)
[2017-10-16] MEDS: CALCIUM CARB/VIT D3 500/200 TABLET. PO ×2 (08:25→16:42)
[2017-10-16] MEDS: TRIAMTERENE/HCTZ 37.5/25MG TABLET. PO (08:25)
[2017-10-16] MEDS: MULTIVITAMIN with MINERAL TABLET. PO (08:25)
[2017-10-16] MEDS: FLUTICASONE 50MCG/NASAL SPRAY 16GM BOTTLE. NS (08:27)
[2017-10-16] MEDS: MAGNESIUM HYDROXIDE 2,400 MG/30 ML ORAL.SUSP. PO (09:07)
[2017-10-16] MEDS: MONTELUKAST SODIUM 10 MG TABLET. PO (20:57)
[2017-10-17] MEDS: POLYETHYLENE GLYCOL 3350 17 GM PACKET. PO (06:18)
[2017-10-17] MEDS: IPRATRPIUM/ALBUTEROL 0.5/2.5MG 3 ML NEBU. NEB (07:16)
[2017-10-17] MEDS: BUDESONIDE 0.5 MG/2 ML NEBU. NEB (07:17)
[2017-10-17] MEDS: MULTIVITAMIN with MINERAL TABLET. PO (08:04)
[2017-10-17] MEDS: CALCIUM CARB/VIT D3 500/200 TABLET. PO (08:04)
[2017-10-17] MEDS: LACTOBACILLUS RHAMNOSUS GG 1 CAPSULE. PO (08:04)
[2017-10-17] MEDS: FLUTICASONE 50MCG/NASAL SPRAY 16GM BOTTLE. NS (08:05)
== END 2017-10-17 12:01 | disposition home or self-care (01) | DRG 191 ==
LOC: ER 08:01 → 5 SOUTH 09:35
DX: J47.0 Bronchiectasis with acute lower respiratory infection (principal); J44.1 Chronic obstructive pulmonary disease with (acute) exacerbation; J18.9 Pneumonia, unspecified organism; J44.0 Chronic obstructive pulmonary disease with (acute) lower respiratory infection; I10 Essential (primary) hypertension; J30.9 Allergic rhinitis, unspecified; Z96.649 Presence of unspecified artificial hip joint; Z96.659 Presence of unspecified artificial knee joint; Z82.3 Family history of stroke; Z83.3 Family history of diabetes mellitus; Z87.11 Personal history of peptic ulcer disease; Z90.49 Acquired absence of other specified parts of digestive tract; Z90.710 Acquired absence of both cervix and uterus; Z87.01 Personal history of pneumonia (recurrent)
CPT/HCPCS: 36415; 71045; 71250; 80053; 81001; 82553; 83605; 83690; 83880; 84484; 85025; 87040; 93005; 94640; 94760; 96365; 96375; 99285; 99285-25; J1956; J2930; J7620; J7626

== ENCOUNTER 2017-11-05 18:04 | Emergency (ER) | payer BC ==
[2017-11-05 18:35] LABS: ADD MAN DIFF? NO
[2017-11-05 18:36] LABS: BASO # 0.1 x10^3/uL (0.0-0.2); BASO % 1 % (0-3); EOS # 0.2 x10^3/uL (0.0-0.7); EOS % 3 % (0-3); HEMATOCRIT 34.1 % (36.0-47.0); HEMOGLOBIN 11.4 g/dL (12.0-15.5); LYMPH # 1.9 x10^3/uL (1.0-4.8); LYMPH % 31 % (24-48); MEAN CORPUSCULAR HEMOGLOBIN 32 pg (25-35); MEAN CORPUSCULAR HGB CONC 33 g/dL (31-37); MEAN CORPUSCULAR VOLUME 97 fL (79-100); MONO # 0.5 x10^3/uL (0.0-1.1); MONO % 9 % (0-9); NEUT # 3.5 x10^3uL (1.8-7.7); NEUT % 57 % (31-73); PLATELET COUNT 193 x10^3/uL (140-400); RED BLOOD COUNT 3.53 x10^6/uL (3.50-5.40); RED CELL DISTRIBUTION WIDTH 14.1 % (11.5-14.5); WHITE BLOOD COUNT 6.1 x10^3/uL (4.0-11.0)
[2017-11-05 18:45] LABS: INR 0.9 (0.8-1.1); PROTHROMBIN TIME PATIENT 11.9 SEC (11.7-14.0)
[2017-11-05 18:49] LABS: ANION GAP 9 (6-14); BLOOD UREA NITROGEN 20 mg/dL (7-20); CARBON DIOXIDE 31 mmol/L (21-32); CHLORIDE 102 mmol/L (98-107); CREATININE 0.9 mg/dL (0.6-1.0); GFR 59.5; GLUCOSE 108 mg/dL (70-99); POTASSIUM 3.5 mmol/L (3.5-5.1); SODIUM 142 mmol/L (136-145)
[2017-11-05 18:58] LABS: TROPONINI 0.027 ng/mL (0.000-0.055)
[2017-11-05 19:01] LABS: NT-PRO BNP 249 pg/mL (0-449)
[2017-11-05 19:05] LABS: D-DIMER 1.32 ug/mlFEU (0.00-0.50)
[2017-11-05] MEDS: IOHEXOL 300 MG/ML 100ML VIAL. IV (20:09)
[2017-11-05] MEDS ORDERED: CONTRAST GIVEN. MC (20:15)
[2017-11-05] MEDS: IV NORMAL SALINE 500ML BAG 500 ML IV (20:20)
[2017-11-05] MEDS: predniSONE 10 MG TABLET PO (21:50)
== END 2017-11-05 22:15 | disposition home or self-care (01) ==
LOC: ER 18:04
DX: J44.1 Chronic obstructive pulmonary disease with (acute) exacerbation (principal); I10 Essential (primary) hypertension
CPT/HCPCS: 36415; 71045; 71275; 80048; 83880; 84484; 85025; 85379; 85610; 93005; 99285-25; J7040; J7512; Q9967

== ENCOUNTER 2017-11-10 14:15 | Inpatient (IN) | payer BC ==
[2017-11-10 14:53] LABS: ADD MAN DIFF? NO
[2017-11-10 14:56] LABS: BASO # 0.1 x10^3/uL (0.0-0.2); BASO % 1 % (0-3); EOS # 0.2 x10^3/uL (0.0-0.7); EOS % 3 % (0-3); HEMATOCRIT 34.9 % (36.0-47.0); HEMOGLOBIN 11.9 g/dL (12.0-15.5); LYMPH # 3.4 x10^3/uL (1.0-4.8); LYMPH % 47 % (24-48); MEAN CORPUSCULAR HEMOGLOBIN 33 pg (25-35); MEAN CORPUSCULAR HGB CONC 34 g/dL (31-37); MEAN CORPUSCULAR VOLUME 97 fL (79-100); MONO # 0.5 x10^3/uL (0.0-1.1); MONO % 7 % (0-9); NEUT % 42 % (31-73); PLATELET COUNT 216 x10^3/uL (140-400); RED BLOOD COUNT 3.59 x10^6/uL (3.50-5.40); RED CELL DISTRIBUTION WIDTH 14.3 % (11.5-14.5); WHITE BLOOD COUNT 7.3 x10^3/uL (4.0-11.0)
[2017-11-10 15:03] LABS: INR 0.9 (0.8-1.1)
[2017-11-10 15:08] LABS: ANION GAP 5 (6-14); BLOOD UREA NITROGEN 24 mg/dL (7-20); CALCIUM 8.3 mg/dL (8.5-10.1); CARBON DIOXIDE 34 mmol/L (21-32); CHLORIDE 101 mmol/L (98-107); CREATININE 0.8 mg/dL (0.6-1.0); GFR 68.2; GLUCOSE 112 mg/dL (70-99); POTASSIUM 3.9 mmol/L (3.5-5.1); SODIUM 140 mmol/L (136-145)
[2017-11-10 15:16] LABS: TROPONINI < 0.017 ng/mL (0.000-0.055)
[2017-11-10 15:20] LABS: NT-PRO BNP 466 pg/mL (0-449)
[2017-11-10] MEDS ORDERED: ONDANSETRON PF 4 MG/2 ML VIAL. IV ×2 (16:00)
[2017-11-10] MEDS ORDERED: ACETAMINOPHEN 325 MG TABLET. PO ×2 (16:00)
[2017-11-10] MEDS: IPRATRPIUM/ALBUTEROL 0.5/2.5MG 3 ML NEBU. NEB ×2 (22:18)
[2017-11-11 04:05] LABS: ADD MAN DIFF? NO
[2017-11-11 04:25] LABS: BASO % 1 % (0-3); EOS # 0.3 x10^3/uL (0.0-0.7); EOS % 4 % (0-3); HEMATOCRIT 33.4 % (36.0-47.0); HEMOGLOBIN 11.3 g/dL (12.0-15.5); LYMPH # 3.3 x10^3/uL (1.0-4.8); LYMPH % 47 % (24-48); MEAN CORPUSCULAR HEMOGLOBIN 33 pg (25-35); MEAN CORPUSCULAR HGB CONC 34 g/dL (31-37); MEAN CORPUSCULAR VOLUME 98 fL (79-100); MONO # 0.5 x10^3/uL (0.0-1.1); MONO % 8 % (0-9); NEUT # 2.8 x10^3uL (1.8-7.7); NEUT % 41 % (31-73); PLATELET COUNT 190 x10^3/uL (140-400); RED CELL DISTRIBUTION WIDTH 14.3 % (11.5-14.5); WHITE BLOOD COUNT 6.9 x10^3/uL (4.0-11.0)
[2017-11-11 04:29] LABS: ANION GAP 2 (6-14); BLOOD UREA NITROGEN 23 mg/dL (7-20); CALCIUM 8.1 mg/dL (8.5-10.1); CARBON DIOXIDE 36 mmol/L (21-32); CHLORIDE 103 mmol/L (98-107); CREATININE 0.8 mg/dL (0.6-1.0); GFR 68.2; GLUCOSE 79 mg/dL (70-99); POTASSIUM 4.1 mmol/L (3.5-5.1); SODIUM 141 mmol/L (136-145)
[2017-11-11] MEDS: IPRATRPIUM/ALBUTEROL 0.5/2.5MG 3 ML NEBU. NEB ×8 (07:05→19:53)
[2017-11-11] MEDS ORDERED: ACETAMINOPHEN 500 MG TABLET PO ×2 (08:15)
[2017-11-11] MEDS ORDERED: NON FORMULARY ITEM (Albuterol Sulfate (Albuterol Sulfate Neb Soln) 1 VIAL) NEB ×2 (09:00)
[2017-11-11] MEDS ORDERED: AZITHROMYCIN 250 MG TABLET. PO ×2 (09:00)
[2017-11-11] MEDS ORDERED: POLYETHYLENE GLYCOL 3350 17 GM PACKET. PO ×2 (09:00)
[2017-11-11] MEDS: MULTIVITAMIN with MINERAL TABLET. PO ×2 (09:26)
[2017-11-11] MEDS: FLUTICASONE 50MCG/NASAL SPRAY 16GM BOTTLE. NS ×2 (09:27)
[2017-11-11] MEDS ORDERED: hydrALAZINE 20 MG/ML VIAL. IVP ×2 (09:45)
[2017-11-11 09:56] LABS: ALBUMIN 3.1 g/dL (3.4-5.0); ALK PHOS 45 U/L (46-116); ALT (SGPT) 21 U/L (14-59); AST (SGOT) 16 U/L (15-37); CHOLESTEROL 192 mg/dL (0-200); DIRECT BILIRUBIN 0.1 mg/dL (0.0-0.2); HDLC 71 mg/dL (40-60); LDLC 98 mg/dL (0-100); MAGNESIUM 2.6 mg/dL (1.8-2.4); NON-HDL CHOLESTEROL 121 mg/dL (0-129); TOTAL BILIRUBIN 0.3 mg/dL (0.2-1.0); TRIGLYCERIDES 116 mg/dL (0-150); VLDLC 23 mg/dL (0-40)
[2017-11-11 10:03] LABS: CHOLESTEROL/HDL RATIO 2.7
[2017-11-11 10:04] LABS: THYROID STIM HORMONE (TSH) 4.822 uIU/mL (0.358-3.74)
[2017-11-11 10:24] LABS: TROPONINI 0.023 ng/mL (0.000-0.055)
[2017-11-11] MEDS: BUDESONIDE 0.5 MG/2 ML NEBU. NEB ×4 (10:49→19:53)
[2017-11-11] MEDS: MONTELUKAST SODIUM 10 MG TABLET. PO ×2 (20:14)
[2017-11-12] MEDS: IPRATRPIUM/ALBUTEROL 0.5/2.5MG 3 ML NEBU. NEB ×6 (07:13→15:36)
[2017-11-12] MEDS: BUDESONIDE 0.5 MG/2 ML NEBU. NEB ×2 (07:14)
[2017-11-12] MEDS: MULTIVITAMIN with MINERAL TABLET. PO ×2 (07:33)
[2017-11-12] MEDS: FLUTICASONE 50MCG/NASAL SPRAY 16GM BOTTLE. NS ×2 (07:33)
[2017-11-12] MEDS: REGADENOSON 0.4 MG/5 ML DISP.SYRIN. IV ×2 (10:57)
== END 2017-11-12 19:30 | disposition home or self-care (01) | DRG 303 ==
LOC: ER 14:15 → 5 NORTH 15:45
DX: I25.119 Atherosclerotic heart disease of native coronary artery with unspecified angina pectoris (principal); R06.09 Other forms of dyspnea (principal); R01.1 Cardiac murmur, unspecified; J98.11 Atelectasis; J47.9 Bronchiectasis, uncomplicated; I49.3 Ventricular premature depolarization; I10 Essential (primary) hypertension; I95.9 Hypotension, unspecified; M81.0 Age-related osteoporosis without current pathological fracture; E03.9 Hypothyroidism, unspecified; M19.90 Unspecified osteoarthritis, unspecified site; Z96.651 Presence of right artificial knee joint; Z96.643 Presence of artificial hip joint, bilateral; K59.00 Constipation, unspecified; Z82.49 Family history of ischemic heart disease and other diseases of the circulatory system; K57.90 Diverticulosis of intestine, part unspecified, without perforation or abscess without bleeding; Z87.11 Personal history of peptic ulcer disease; Z98.42 Cataract extraction status, left eye; Z87.01 Personal history of pneumonia (recurrent); Z90.49 Acquired absence of other specified parts of digestive tract; Z90.710 Acquired absence of both cervix and uterus; Z98.41 Cataract extraction status, right eye; E86.1 Hypovolemia
CPT/HCPCS: 36415; 71045; 78452; 80048; 80061; 80076; 83735; 83880; 84443; 84484; 85025; 85610; 93005; 93017; 93306; 94618; 94640; 94760; 96374; 96375; 96376; 99285; 99285-25; A9500; G0378; G0379; J2785; J7620; J7626

== ENCOUNTER 2018-05-13 18:46 | Observation (INO) | payer BC ==
[~2018-05-13] VITALS: Ht 167.6 cm; Wt 73.5 kg
[~2018-05-13 18:46] MED LIST changes: +ACET500T68 PO; +ALEN70TA3 PO; +CALC-98 PO; +FLUT9.9S NS; +GUAI600T47 PO; +HYDR-3164 PO; -HYDR-971 PO; +LEVO500T59 PO; +MONT10TA9 PO; +MULT1TAB52 PO; +POLY17PO28 PO; +PRED50TA PO; +TRIA1TAB3 PO
[2018-05-13] MEDS ORDERED: ONDANSETRON PF 4 MG/2 ML VIAL. IV ONE ×2 (19:00→20:30)
[2018-05-13] MEDS ORDERED: fentaNYL PF VIAL 100 MCG/2 ML VIAL IV ONE ×2 (19:00→20:30)
[2018-05-13] MEDS ORDERED: IV NORMAL SALINE 1000ML BAG 1,000 ML IV ONE (19:45)
--- NOTE | 2018-05-13 20:14 | RAD ---
Exam performed: 2 views right hip HISTORY: Right hip pain, status post fall. DATE OF SERVICE: 05/13/2018 comparison: None available FINDINGS: There is a dislocation of the right hip prosthesis with superior subluxation of the femoral component as compared to the acetabular cup. There is fracture of the lesser trochanter. Pressure: Fracture dislocation right hip joint. Electronically signed by: Mahsa Salcido MD (05/13/2018 8:10 PM) [facility]
[2018-05-13 20:25] LABS: BASO % 1 % (0-3); EOS # 0.2 x10^3/uL (0.0-0.7); EOS % 3 % (0-3); HEMATOCRIT 33.1 % (36.0-47.0); HEMOGLOBIN 11.3 g/dL (12.0-15.5); LYMPH # 1.4 x10^3/uL (1.0-4.8); LYMPH % 21 % (24-48); MEAN CORPUSCULAR HEMOGLOBIN 33 pg (25-35); MEAN CORPUSCULAR HGB CONC 34 g/dL (31-37); MEAN CORPUSCULAR VOLUME 98 fL (79-100); MONO # 0.5 x10^3/uL (0.0-1.1); MONO % 8 % (0-9); NEUT # 4.6 x10^3uL (1.8-7.7); NEUT % 67 % (31-73); PLATELET COUNT 170 x10^3/uL (140-400); RED BLOOD COUNT 3.39 x10^6/uL (3.50-5.40); RED CELL DISTRIBUTION WIDTH 14.7 % (11.5-14.5); WHITE BLOOD COUNT 6.8 x10^3/uL (4.0-11.0)
[2018-05-13] MEDS ORDERED: ONDANSETRON PF 4 MG/2 ML VIAL. IV PRN (20:30)
[2018-05-13 20:34] LABS: CALCIUM 8.6 mg/dL (8.5-10.1); GFR 52.7; POTASSIUM 4.1 mmol/L (3.5-5.1)
--- NOTE | 2018-05-13 20:35 | PHYS DOC ---
Past Medical History Past Medical History: COPD, Hypertension, Lung Disease, Pneumonia, Other Additional Past Medical Histor: STOMACH ULCERS,BRONCHIECTASIS, Osteoporosis Past Surgical History: Appendectomy, Hip Replacement, Hysterectomy, Knee Replacement, Tonsillectomy, Other Additional Past Surgical Histo: Partial L LOBECTOMY,BLADDER,CATARACT,RECTOCELE , RT KNEE, Bilateral Hip Alcohol Use: None Drug Use: None Adult General Chief Complaint Chief Complaint: HIP PAIN [facility] HPI Patient is an 87-year-old female who presents with complaint of pain and injury to her right hip that she sustained when she fell while trying to get into her car. Patient states that the vehicle was very high up and she slipped while trying to get in and fell onto her right hip. Patient currently rates her pain to be about a 5-6 out of 10 as long as she is lying still but if she tries to move her hip pain is much worse. Patient has had bilateral hip replacements and states that she had a dislocation to her hip about 10 years ago. Patient states that nothing improves the pain other than lying still. She denies any other injury to include head injury and denied having loss of consciousness. Review of Systems Review of Systems Constitutional: Denies fever or chills [] Respiratory: Denies cough or shortness of breath [] Cardiovascular: No additional information not addressed in HPI [] Musculoskeletal: Complains of right hip pain [] Integument: Denies rash or skin lesions [] Neurologic: Denies headache, focal weakness or sensory changes [] All other systems were reviewed and found to be within normal limits, except as documented in this note. Current Medications Current Medications Current Medications Medications (Trade) Dose Ordered Sig/[facility] Start Time Stop Time Status Last Admin Dose Admin Fentanyl Citrate (Fentanyl 2ml Vial) 50 mcg 1X ONCE 05/13/18 20:30 05/13/18 20:31 05/13/18 20:13 50 MCG Ondansetron HCl (Zofran) 4 mg 1X ONCE 05/13/18 20:30 05/13/18 20:31 Sodium Chloride 1,000 ml @ 125 mls/hr 1X ONCE 05/13/18 19:45 05/14/18 03:44 05/13/18 20:07 125 MLS/HR Allergies Allergies Allergies Coded Allergies Type Severity Reaction Last Updated Verified No Known Drug Allergies 05/09/18 No Physical Exam Physical Exam Constitutional: Well developed, well nourished, no acute distress, non-toxic appearance. [] HENT: Normocephalic, atraumatic, bilateral external ears normal, oropharynx moist, no oral exudates, nose normal. [] Eyes: PERRLA, EOMI, conjunctiva normal, no discharge. [] Neck: Normal range of motion, no tenderness, supple, no stridor. [] Cardiovascular: Regular rate and rhythm [] Lungs & Thorax: Bilateral breath sounds clear to auscultation [] Abdomen: Bowel sounds normal, soft, no tenderness. [] Skin: Warm, dry, no erythema, no rash. [] Extremities: Right leg demonstrates shortening and external rotation. Patient is unable to tolerate range of motion of the hip due to pain. [] Neurologic: Alert and oriented X 3, normal motor function, normal sensory function, no focal deficits noted. [] Current Patient Data Vital Signs Vital Signs Date Time Temp Pulse Resp B/P (MAP) Pulse Ox O2 Delivery O2 Flow Rate FiO2 05/13/18 20:13 16 99 Room Air 05/13/18 18:46 98.1 93 165/80 (108) 2.0 98.1 EKG EKG [] Radiology/Procedures Radiology/Procedures [] Impressions: PROCEDURE: HIP RIGHT 2V WITH PELVIS Exam performed: 2 views right hip HISTORY: Right hip pain, status post fall. DATE OF SERVICE: 05/13/2018 comparison: None available FINDINGS: There is a dislocation of the right hip prosthesis with superior subluxation of the femoral component as compared to the acetabular cup. There is fracture of the lesser trochanter. Pressure: Fracture dislocation right hip joint. Electronically signed by: Mahsa Salcido MD (05/13/2018 8:10 PM) [facility] Course & Med Decision Making Course & Med Decision Making Pertinent Labs and Imaging studies reviewed. (See chart for details) [] Dragon Disclaimer Dragon Disclaimer This electronic medical record was generated, in whole or in part, using a voice recognition dictation system. Departure Departure Impression: Primary Impression: Dislocation of internal right hip prosthesis Disposition: 09 ADMITTED INPATIENT Admitting Physician: Ibrahima Toure Condition: GOOD Referrals: IBRAHIMA TOURE MD (PCP) Problem Qualifiers Primary Impression: Dislocation of internal right hip prosthesis Encounter type: initial encounter Qualified Codes: T84.020A - Dislocation of internal right hip prosthesis, initial encounter HUGH COOK Jr. DO May 13, 2018 20:35
[2018-05-13 20:42] LABS: ALBUMIN/GLOBULIN RATIO 0.8 (1.0-1.7); TOTAL BILIRUBIN 0.1 mg/dL (0.2-1.0); TOTAL PROTEIN 6.8 g/dL (6.4-8.2)
[2018-05-13 21:25] VITALS: BP 108/78
[2018-05-13] MEDS ORDERED: AZIT250T6 PO (22:34)
[2018-05-13] MEDS: IV NORMAL SALINE 1000ML BAG 1,000 ML IV SCH (22:51)
[2018-05-13] MEDS: fentaNYL PF VIAL 100 MCG/2 ML VIAL IV PRN (22:52)
[2018-05-13 23:00] VITALS: BP 101/64
[2018-05-13] MEDS ORDERED: ALBUTEROL SULFATE 2.5 MG/3 ML NEBU. NEB PRN (23:00)
[2018-05-13] MEDS ORDERED: ACETAMINOPHEN 500 MG TABLET PO PRN (23:00)
[2018-05-14] VITALS (12 sets, daily range): BP systolic 88–136; BP diastolic 47–73
[2018-05-14] MEDS: fentaNYL PF VIAL 100 MCG/2 ML VIAL IV PRN ×3 (02:18→08:28)
--- NOTE | 2018-05-14 02:35 | EKG ---
[facility] [address] [place] [address] Test Date: 2018-05-13 Test Time: 20:31:15 Pat Name: GISELLE KEITH Department: Room: Gender: F Winder Fixer: : [id number] Requested By: HUGH COOK Order Number: [id number] Reading MD: Measurements Intervals Harvey Rate: 87 P: 26 ID: [id number] QRS: -23 QRSD: 128 T: 77 QT: 362 QTc: 436 Interpretive Statements SINUS RHYTHM VENTRICULAR PREMATURE COMPLEX(ES) LEFT ATRIAL ABNORMALITY LEFTWARD AXIS NON SPECIFIC INTRAVENTRICULAR BLOCK QRS(T) CONTOUR ABNORMALITY CONSIDER ANTEROSEPTAL MYOCARDIAL DAMAGE ABNORMAL ECG RI6.01 No previous ECG available for comparison
[2018-05-14] MEDS: IV NORMAL SALINE 1000ML BAG 1,000 ML IV SCH ×2 (04:35→17:00)
[2018-05-14] MEDS: BUDESONIDE 0.5 MG/2 ML NEBU. NEB SCH ×2 (07:47→19:53)
[2018-05-14] MEDS: IPRATRPIUM/ALBUTEROL 0.5/2.5MG 3 ML NEBU. NEB SCH ×4 (07:47→19:53)
[2018-05-14] MEDS ORDERED: IV RINGERS,LACTATED 1000ML 1,000 ML IV SCH (07:52)
[2018-05-14] MEDS ORDERED: fentaNYL PF VIAL 100 MCG/2 ML VIAL IV PRN ×2 (08:00)
[2018-05-14] MEDS ORDERED: LIDOCAINE 1% PF 2 ML VIAL. ID PRN (08:00)
[2018-05-14] MEDS ORDERED: PROCHLORPERAZINE 10 MG/2 ML VIAL. IV PRN (08:00)
[2018-05-14] MEDS ORDERED: HYDROmorphone 2 MG/ML VIAL IV PRN (08:00)
[2018-05-14] MEDS: CALCIUM CARB/VIT D3 500/200 TABLET. PO SCH ×2 (08:00→17:28)
[2018-05-14] MEDS ORDERED: MORPHINE SULFATE 2 MG/ML VIAL. IV PRN (08:00)
[2018-05-14] MEDS: MULTIVITAMIN with MINERAL TABLET. PO SCH (08:06)
[2018-05-14] MEDS ORDERED: NON FORMULARY ITEM (Fluticasone/Salmeterol (Advair 100-50 Diskus) 1 PUFF) IH SCH (09:00)
[2018-05-14] MEDS ORDERED: NON FORMULARY ITEM (Albuterol Sulfate (Albuterol Sulfate Neb Soln) 1 VIAL) NEB SCH (09:00)
[2018-05-14] MEDS ORDERED: AZITHROMYCIN 250 MG TABLET. PO SCH (09:00)
[2018-05-14] MEDS: FLUTICASONE 50MCG/NASAL SPRAY 16GM BOTTLE. NS SCH (09:00)
[2018-05-14] MEDS ORDERED: NON FORMULARY ITEM (Tiotropium Bromide (Spiriva) 1 CAP) IH SCH (09:00)
[2018-05-14] MEDS ORDERED: NON FORMULARY ITEM (Alendronate Sodium (Fosamax) 1 TAB) PO SCH (09:00)
[2018-05-14] MEDS ORDERED: POLYETHYLENE GLYCOL 3350 17 GM PACKET. PO PRN (09:00)
[2018-05-14] MEDS ORDERED: LIDOCAINE 2% PF Vial for OR 5 ML VIAL. ONE (09:05)
[2018-05-14] MEDS ORDERED: PROPOFOL 20 ML IV ONE (09:05)
--- NOTE | 2018-05-14 09:10 | PDOC ---
Provider Note Provider Note [id number] MICK HOUGH MD May 14, 2018 09:10
--- NOTE | 2018-05-14 09:31 | PDOC2 ---
CONSULT Date of Consult Date of Consult DATE: 05/14/18 TIME: 09:27 Reason for Consult Reason for Consult: Right hip dislocation Referring Physician Referring Physician: Mesfin Identification/Chief Complaint Chief Complaint Right hip pain Source Source: Chart review, Patient History of Present Illness Reason for Visit: Patient is complaining of right hip pain, worse with any movement. It started when she felt her hip pop out as she was maneuvering in a vehicle. This is a second time and has dislocated, the prior one was about 3 years ago. No intervening problems. She feels that her hip is functioning over well, so his left one. She had her hip surgeries done about a decade ago at this hospital. Her hip pain is worse with any movement. Does radiate down her thigh little ways. It is better at rest. She was unable to bear weight on it which prompted a visit to the emergency department and admission. Past Medical History Cardiovascular: HTN Pulmonary: Other CENTRAL NERVOUS SYSTEM: Other GI: Constipation, Diverticulosis Heme/Onc: Other Hepatobiliary: No pertinent hx Musculoskeletal: Osteoarthritis Rheumatologic: No pertinent hx Infectious disease: No pertinent hx Renal/: No pertinent hx Endocrine: No pertinent hx, Osteoporosis Past Surgical History Past Surgical History: Appendectomy, Cholecystectomy, Total hip replacement, Total knee replacement, Other Family History Family History: Coronary Artery Disease Social History ALCOHOL: none Drugs: None Lives: with Family Current Problem List Problem List Problems Medical Problems: (1) Dislocation of internal right hip prosthesis Status: Acute Current Medications Current Medications Current Medications Fentanyl Citrate (Fentanyl 2ml Vial) 25 mcg 1X ONCE IV Last administered on at 19:29; Start 05/13/18 at 19:00; Stop 05/13/18 at 19:01; Status DC Ondansetron HCl (Zofran) 4 mg 1X ONCE IV Last administered on 05/13/18at 19:29 ; Start 05/13/18 at 19:00; Stop 05/13/18 at 19:01; Status DC Sodium Chloride 1,000 ml @ 125 mls/hr 1X ONCE IV Last administered on at 20:07; Start 05/13/18 at 19:45; Stop 05/14/18 at 03:45; Status DC Fentanyl Citrate (Fentanyl 2ml Vial) 50 mcg 1X ONCE IV Last administered on at 20:13; Start 05/13/18 at 20:30; Stop 05/13/18 at 20:31; Status DC Ondansetron HCl (Zofran) 4 mg 1X ONCE IV ; Start 05/13/18 at 20:30; Stop at 20:31; Status DC Ondansetron HCl (Zofran) 4 mg PRN Q8HRS PRN IV NAUSEA/VOMITING 1ST CHOICE; Start 05/13/18 at 20:30; Stop 05/14/18 at 20:29 Fentanyl Citrate (Fentanyl 2ml Vial) 50 mcg PRN Q1HR PRN IV SEVERE PAIN Last administered on 05/14/18at 08:28; Start 05/13/18 at 20:30; Stop 05/14/18 at 20:29 Sodium Chloride 1,000 ml @ 100 mls/hr Q10H IV Last administered on 05/14/18at 04:35; Start 05/13/18 at 21:00; Stop 05/14/18 at 20:59 Azithromycin (Zithromax) 250 mg DAILY PO ; Start 05/14/18 at 09:00; Status Cancel Acetaminophen (Tylenol) 500 mg PRN BID PRN PO MILD PAIN / TEMP; Start 05/13/18 at 23:00 Non-Formulary Medication (Albuterol Sulfate (Albuterol Sulfate Neb Soln)) 1 vial QID NEB ; Start 05/14/18 at 09:00; Status UNV Non-Formulary Medication (Alendronate Sodium (Fosamax)) 1 tab DAILY PO ; Start 05/14/18 at 09:00; Status UNV Calcium/Vitamin D (Oscal D 500mg/ 200uts) 1 tab BIDWMEALS PO ; Start 05/14/18 at 08:00 Fluticasone Propionate (Flonase) 2 spray DAILY NS ; Start 05/14/18 at 09:00 Non-Formulary Medication (Fluticasone/ Salmeterol (Advair 100-50 Diskus)) 1 puff BID IH ; Start 05/14/18 at 09:00; Status UNV Montelukast Sodium (Singulair) 10 mg QHS PO ; Start 05/14/18 at 21:00 Multivitamins (Thera M Plus) 1 tab DAILY PO ; Start 05/14/18 at 09:00 Polyethylene Glycol (miraLAX PACKET) 17 gm PRN DAILY PRN PO CONSTIPATION 1ST CHOICE; Start 05/14/18 at 09:00 Non-Formulary Medication (Tiotropium [place] (Spiriva)) 1 cap DAILY IH ; Start 05/14/18 at 09:00; Status UNV Albuterol/ Ipratropium (Duoneb) 3 ml RTQID NEB Last administered on 05/14/18at 07:47; Start 05/14/18 at 08:00 Budesonide (Pulmicort) 0.5 mg RTBID NEB Last administered on 05/14/18at 07:47; Start 05/14/18 at 08:00 Albuterol Sulfate (Ventolin Neb Soln) 2.5 mg PRN Q6HRS PRN NEB SHORTNESS OF BREATH Last administered on 05/13/18at 23:05; Start 05/13/18 at 23:00 Fentanyl Citrate (Fentanyl 2ml Vial) 25 mcg PRN Q5MIN PRN IV MILD PAIN; Start 05/14/18 at 08:00; Stop 05/15/18 at 07:59 Fentanyl Citrate (Fentanyl 2ml Vial) 50 mcg PRN Q5MIN PRN IV MODERATE TO SEVERE PAIN; Start 05/14/18 at 08:00; Stop 05/15/18 at 07:59 Morphine Sulfate (Morphine Sulfate) 1 mg PRN Q10MIN PRN IV SEVERE PAIN; Start 05/14/18 at 08:00; Stop 05/15/18 at 07:59 Ringer's Solution 1,000 ml @ 30 mls/hr Q24H IV ; Start 05/14/18 at 07:52; Stop 05/14/18 at 19:51 Lidocaine HCl (Xylocaine-Mpf 1% 2ml Vial) 2 ml PRN 1X PRN ID PRIOR TO IV START ; Start 05/14/18 at 08:00; Stop 05/15/18 at 07:59 Hydromorphone HCl (Dilaudid) 0.5 mg PRN Q10MIN PRN IV SEV PAIN, Second choice; Start 05/14/18 at 08:00; Stop 05/15/18 at 07:59 Prochlorperazine Edisylate (Compazine) 5 mg PACU PRN PRN IV NAUSEA, MRX1; Start 05/14/18 at 08:00; Stop 05/15/18 at 07:59 Propofol 20 ml @ As Directed STK-MED ONCE IV ; Start 05/14/18 at 09:05; Stop at 09:06; Status DC Lidocaine HCl (Lidocaine Pf 2% Vial) 5 ml STK-MED ONCE .ROUTE ; Start 05/14/18 at 09:05; Stop 05/14/18 at 09:06; Status DC Active Scripts Active Polyethylene Glycol 3350 17 Gm Powd.pack 17 Gm PO PRN DAILY PRN 30 Days Montelukast Sodium Tablet (Montelukast Sodium) 10 Mg Tablet 10 Mg PO QHS 30 Days Reported Azithromycin Tablet (Azithromycin) 250 Mg Tablet 250 Mg PO DAILY Calcium + Vitamin D Tablet (Calcium Carbonate/Vitamin D3) 1 Each Tablet 500 Mg PO BID Acetaminophen 500 Mg Tablet 1 Tab PO BID PRN Multivitamins (Multivitamin) 1 Each Tablet 1 Tab PO DAILY Flonase Allergy Relief (Fluticasone Propionate) 9.9 Ml [place].susp 2 Sprays NS DAILY Fosamax (Alendronate Sodium) 70 Mg Tablet 1 Tab PO DAILY Albuterol Sulfate Neb Soln (Albuterol Sulfate) 0.63 Mg/3 Ml Vial.neb 1 Vial NEB QID Spiriva (Tiotropium [place]) 18 Mcg Cap.w.dev 1 Cap IH DAILY Advair 100-50 Diskus (Fluticasone/Salmeterol) 1 Each Disk.w.dev 1 Puff IH BID Allergies Allergies: Coded Allergies: No Known Drug Allergies (Unverified , 05/09/18) ROS General: No: Chills, Night Sweats, Fatigue, Malaise, Appetite, Other PSYCHOLOGICAL ROS: No: Anxiety, Behavioral Disorder, Concentration difficultie , Decreased libido, Depression, Disorientation, Hallucinations, Hostility, Irritablity, Memory difficulties, Mood Swings, Obsessive thoughts, Physical abuse, Sexual abuse, Sleep disturbances, Suicidal ideation, Other Eyes: No Blurry vision, No Decreased vision, No Double vision, No Dry eyes, No Excessive tearing, No Eye Pain, No Itchy Eyes, No Loss of vision, No Photophobia , No Scotomata, No Uses contacts, No Uses glasses, No Other HEENT: No: Heacaches, Visual Changes, Hearing change, Nasal congestion, Nasal discharge, Oral lesions, Sinus pain, Sore Throat, Epistaxis, Sneezing, Snoring, Tinnitus, Vertigo, Vocal changes, Other ALLERGY AND IMMUNOLOGY: No: Hives, Insect Bite Sensitivity, Itchy/Watery Eyes, Nasal Congestion, Post Nasal Drip, Seasonal Allergies, Other Hematological and Lymphatic: No: Bleeding Problems, Blood Clots, Blood Transfusions, Brusing, Night Sweats, Pallor, Swollen Lymph Nodes, Other Respiratory: No: Cough, Hemoptysis, Orthopnea, Pleuritic Pain, Shortness of breath, SOB with excertion, Sputum Changes, Stridor, Tachypnea, Wheezing, Other Cardiovascular: No Chest Pain, No Palpitations, No Orthopnea, No Paroxysmal Noc. Dyspnea, No Edema, No Lt Headedness, No Other Gastrointestinal: No Nausea, No Vomiting, No Abdominal Pain, No Diarrhea, No Constipation, No Melena, No Hematochezia, No Other Genitourinary: No Dysuria, No Frequency, No Incontinence, No Hematuria, No Retention, No Discharge, No Urgency, No Pain, No Flank Pain, No Other, No , No , No , No , No , No , No Musculoskeletal: Yes Joint Pain, Yes Joint Stiffness Neurological: No Behavorial Changes, No Bowel/Bladder ControlChng, No Confusion , No Dizziness, No Gait Disturbance, No Headaches, No Impaired Coord/balance, No Memory Loss, No Numbness/Tingling, No Seizures, No Speech Problems, No Tremors, No Visual Changes, No Weakness, No Other Physical Exam General: Alert, Oriented X3 HEENT: Atraumatic, EOMI Lungs: Other (respirations aren't labored with symmetric chest rise) Heart: Regular rate Abdomen: Soft, No tenderness Extremities: No edema, Normal pulses Neuro: Normal speech, Strength at 5/5 X4 ext, Sensation intact Psych/Mental Status: Mental status NL, Mood NL MUSCULOSKELETAL: Other (right lower extremity is slightly shorter and externally rotated. Good pulses distally. She will wiggle her toes. She is tender around her hip. Old healed posterolateral incision is present) Vitals VITALS Vital Signs Date Time Temp Pulse Resp B/P (MAP) Pulse Ox O2 Delivery O2 Flow Rate FiO2 05/14/18 08:28 Nasal Cannula 2.0 05/14/18 07:49 97 05/14/18 07:00 98.0 77 18 117/69 (85) 98.0 Labs Labs Laboratory Tests Test 05/13/18 20:15 White Blood Count 6.8 x10^3/uL (4.0-11.0) Red Blood Count 3.39 x10^6/uL (3.50-5.40) Hemoglobin 11.3 g/dL (12.0-15.5) Hematocrit 33.1 % (36.0-47.0) Mean Corpuscular Volume 98 fL (79-100) Mean Corpuscular Hemoglobin 33 pg (25-35) Mean Corpuscular Hemoglobin Concent 34 g/dL (31-37) Red Cell Distribution Width 14.7 % (11.5-14.5) Platelet Count 170 x10^3/uL (140-400) Neutrophils (%) (Auto) 67 % (31-73) Lymphocytes (%) (Auto) 21 % (24-48) Monocytes (%) (Auto) 8 % (0-9) Eosinophils (%) (Auto) 3 % (0-3) Basophils (%) (Auto) 1 % (0-3) Neutrophils # (Auto) 4.6 x10^3uL (1.8-7.7) Lymphocytes # (Auto) 1.4 x10^3/uL (1.0-4.8) Monocytes # (Auto) 0.5 x10^3/uL (0.0-1.1) Eosinophils # (Auto) 0.2 x10^3/uL (0.0-0.7) Basophils # (Auto) 0.0 x10^3/uL (0.0-0.2) Sodium Level 141 mmol/L (136-145) Potassium Level 4.1 mmol/L (3.5-5.1) Chloride Level 104 mmol/L (98-107) Carbon Dioxide Level 37 mmol/L (21-32) Anion Gap 0 (6-14) Blood Urea Nitrogen 24 mg/dL (7-20) Creatinine 1.0 mg/dL (0.6-1.0) Estimated GFR (Cockcroft-Gault) 52.7 BUN/Creatinine Ratio 24 (6-20) Glucose Level 127 mg/dL (70-99) Calcium Level 8.6 mg/dL (8.5-10.1) Total Bilirubin 0.1 mg/dL (0.2-1.0) Aspartate Amino Transf (AST/SGOT) 20 U/L (15-37) Alanine Aminotransferase (ALT/SGPT) 29 U/L (14-59) Alkaline Phosphatase 75 U/L (46-116) Total Protein 6.8 g/dL (6.4-8.2) Albumin 3.0 g/dL (3.4-5.0) Albumin/Globulin Ratio 0.8 (1.0-1.7) Laboratory Tests Test 05/13/18 20:15 White Blood Count 6.8 x10^3/uL (4.0-11.0) Red Blood Count 3.39 x10^6/uL (3.50-5.40) Hemoglobin 11.3 g/dL (12.0-15.5) Hematocrit 33.1 % (36.0-47.0) Mean Corpuscular Volume 98 fL (79-100) Mean Corpuscular Hemoglobin 33 pg (25-35) Mean Corpuscular Hemoglobin Concent 34 g/dL (31-37) Red Cell Distribution Width 14.7 % (11.5-14.5) Platelet Count 170 x10^3/uL (140-400) Neutrophils (%) (Auto) 67 % (31-73) Lymphocytes (%) (Auto) 21 % (24-48) Monocytes (%) (Auto) 8 % (0-9) Eosinophils (%) (Auto) 3 % (0-3) Basophils (%) (Auto) 1 % (0-3) Neutrophils # (Auto) 4.6 x10^3uL (1.8-7.7) Lymphocytes # (Auto) 1.4 x10^3/uL (1.0-4.8) Monocytes # (Auto) 0.5 x10^3/uL (0.0-1.1) Eosinophils # (Auto) 0.2 x10^3/uL (0.0-0.7) Basophils # (Auto) 0.0 x10^3/uL (0.0-0.2) Sodium Level 141 mmol/L (136-145) Potassium Level 4.1 mmol/L (3.5-5.1) Chloride Level 104 mmol/L (98-107) Carbon Dioxide Level 37 mmol/L (21-32) Anion Gap 0 (6-14) Blood Urea Nitrogen 24 mg/dL (7-20) Creatinine 1.0 mg/dL (0.6-1.0) Estimated GFR (Cockcroft-Gault) 52.7 BUN/Creatinine Ratio 24 (6-20) Glucose Level 127 mg/dL (70-99) Calcium Level 8.6 mg/dL (8.5-10.1) Total Bilirubin 0.1 mg/dL (0.2-1.0) Aspartate Amino Transf (AST/SGOT) 20 U/L (15-37) Alanine Aminotransferase (ALT/SGPT) 29 U/L (14-59) Alkaline Phosphatase 75 U/L (46-116) Total Protein 6.8 g/dL (6.4-8.2) Albumin 3.0 g/dL (3.4-5.0) Albumin/Globulin Ratio 0.8 (1.0-1.7) Images Images X-rays are interpreted by myself. Anterior right hip dislocation with lesser trochanter fracture Assessment/Plan Assessment/Plan I did discuss the risks, benefits, alternatives with her and her family overall plan regarding attempted closed reduction. If unsuccessful would proceed with open reduction. She will have PT and OT to reinforce hip precautions and safety right now. I recommend a walker. She could be discharged home whenever comfortable and after therapy has had a chance to work with her JONATAN ZAMBRANO II, MD May 14, 2018 09:31
[2018-05-14] MEDS ORDERED: ONDANSETRON PF 4 MG/2 ML VIAL. ONE (09:35)
[2018-05-14] MEDS ORDERED: DEXAMETHASONE SOD PHOS 20 MG/5 ML VIAL. ONE (09:35)
[2018-05-14] MEDS ORDERED: ePHEDrine PF IN SALINE 50 MG/5 ML DISP.SYRIN IV ONE (09:48)
[2018-05-14] MEDS ORDERED: SUCCINYLCHOLINE 200 MG/10 ML VIAL. ONE (09:48)
[2018-05-14] MEDS ORDERED: SEVOFLURANE 16 TO 30 MINUTES. IH ONE (09:56)
--- NOTE | 2018-05-14 10:06 | HP ---
ADMIT DATE: 05/14/2018 CHIEF COMPLAINT: Painful hip. HISTORY OF PRESENT ILLNESS: The patient is an 87-year-old white female who had a fall and dislocated hip, who underwent total hip replacements and as she had eaten, she was unable to be sedated enough to get a joint replacement done in the Emergency Room. Dr. Barahona plans to see her today, take her to surgery and perform hip reduction under general anesthesia. She has no other complaints at this time. PAST MEDICAL HISTORY: Past history well documented in the old records. She has chronic bronchiectasis and takes IV immunoglobulin and oral azithromycin and breathing treatments. ALLERGIES: She has no allergies known. IMMUNIZATION: Shot are up-to-date. SOCIAL HISTORY: . Nonsmoker, nondrinker. FAMILY HISTORY: Unremarkable. REVIEW OF SYSTEMS: No other complaints. PHYSICAL EXAMINATION: ENT: All within normal limits. NECK: No masses, nodes or thyroid enlargement. LUNGS: Clear. CARDIOVASCULAR: Regular rate. No irregular beat or murmur. ABDOMEN: Benign, soft and nontender. EXTREMITIES: The right hip is mobile, shortened and externally rotated, consistent with this dictation. Pedal pulses are good in all 2 extremities and radial pulse is good as well. NEUROLOGIC: Physiologic and nonfocal. ASSESSMENT: Intractable hip dislocation; otherwise, medically stable. PLAN: Hip reduction and likely discharge after that. MICK HOUGH MD DR: DENIZ/miguel ángel JOB#: [id number] / [id number]
--- NOTE | 2018-05-14 10:09 | PDOC4 ---
Operative Note Operative Note Date of procedure: 05/14/2018 Surgeon: Tucker Zambrano Safety Engineer: Helen Lr, certified executive chef Preoperative diagnosis: Closed right total hip arthroplasty anterior dislocation Postoperative diagnosis: Same Procedure performed: Closed reduction right hip dislocation Anesthesia: Gen. Findings: Hip stable within normal range of motion Complications: none Blood loss: 0 Reason for procedure: Patient is very pleasant 87-year-old female who had total hip arthroplasties done remotely. She has had well-functioning arthroplasties without any complaints, she has dislocated her right one one time prior, about 3 years ago. Please see my consult note for full details. I discussion of the risks, benefits, alternatives to the above surgery with her and her family and they elected to proceed. Description of procedure: Patient was greeted in the preoperative area by myself for the correct extremity was verified and marked. She was taken back to the operative suite. Once in the operating room, she was transferred gently supine to the operative room table and had successful induction of a general anesthetic. All down pressure points were padded. She was secured to the bed. At this point, an training assistant pulled countertraction, I pulled traction and externally rotated the leg, I was unsuccessful at this point, and check C-arm images. Anesthesia then administered paralytic and after this set up, the same maneuver was successful in reducing the hip. I took my final images, showing a reduced total hip arthroplasty under biplanar fluoroscopy. Abduction pillow was in place. She is awake from anesthesia and transferred gently supine to the hospital bed. She was taken to the PACU in stable and extubated condition. Postoperative plan is to readmitted to the floor under the care of her primary doctor. PT and OT have been ordered. Abduction pillow in place. Hip precautions have been ordered as well. I will follow along and see her tomorrow. I would anticipate discharge home tomorrow. TUCKER ZAMBRANO II, MD May 14, 2018 10:09
[2018-05-14] MEDS ORDERED: MONTELUKAST SODIUM 10 MG TABLET. PO SCH (21:00)
[2018-05-15 03:15] VITALS: BP 102/55
[2018-05-15] MEDS: BUDESONIDE 0.5 MG/2 ML NEBU. NEB SCH (06:54)
[2018-05-15] MEDS: IPRATRPIUM/ALBUTEROL 0.5/2.5MG 3 ML NEBU. NEB SCH ×3 (06:55→15:33)
[2018-05-15 07:00] VITALS: BP 154/64
--- NOTE | 2018-05-15 08:29 | DISCH ---
DISCHARGE DISCHARGE INFORMATION: FINAL DIAGNOSIS Problems Medical Problems: (1) Dislocation of internal right hip prosthesis Status: Acute CONDITION ON DISCHARGE: Stable POST DISCHARGE ORDERS: ACTIVITY ORDERS: Activity as tolerated WEIGHT BEARING STATUS: No restrictions CHECKS AFTER DISCHARGE: CHECKS AFTER DISCHARGE: Check blood press - daily TREATMENT/EQUIPMENT ORDERS: ADAPTIVE EQUIPMENT NEEDED: None Physical Therapy For: Evalulation/Treatment Occupational Therapy For: Evaluation/Treatment DISCHARGE MEDICATIONS: Home Meds Active Scripts Polyethylene Glycol 3350 (POLYETHYLENE GLYCOL 3350) 17 Gm Powd.pack, 17 GM PO PRN DAILY PRN for CONSTIPATION 1ST CHOICE for 30 Days, PKT 0 Refills Prov:PATRICIA BROWNE MD 10/17/17 Montelukast Sodium (MONTELUKAST SODIUM TABLET) 10 Mg Tablet, 10 MG PO QHS for 30 Days, #30 TAB Prov:PATRICIA BROWNE MD 10/17/17 Reported Medications Azithromycin (AZITHROMYCIN TABLET) 250 Mg Tablet, 250 MG PO DAILY for ANTI- BIOTIC, TAB 0 Refills 05/13/18 Calcium Carbonate/Vitamin D3 (CALCIUM + VITAMIN D TABLET) 1 Each Tablet, 500 MG PO BID, TAB 10/14/17 Acetaminophen (ACETAMINOPHEN) 500 Mg Tablet, 1 TAB PO BID PRN for PAIN, TAB 10/14/17 Multivitamin (MULTIVITAMINS) 1 Each Tablet, 1 TAB PO DAILY, #90 TAB 3 Refills 10/14/17 Fluticasone Propionate (Flonase Allergy Relief) 9.9 Ml [place].susp, 2 SPRAYS NS DAILY, BOTTLE 10/14/17 Alendronate Sodium (FOSAMAX) 70 Mg Tablet, 1 TAB PO DAILY, #4 TAB 11 Refills 10/14/17 Albuterol Sulfate (ALBUTEROL SULFATE NEB SOLN) 0.63 Mg/3 Ml Vial.neb, 1 VIAL NEB QID, #150 ML 1 Refill 03/01/14 Tiotropium [place] (SPIRIVA) 18 Mcg Cap.w.dev, 1 CAP IH DAILY, #30 CAP 3 Refills 03/01/14 Fluticasone/Salmeterol (ADVAIR 100-50 DISKUS) 1 Each Disk.w.dev, 1 PUFF IH BID, #1 INHALER 5 Refills 03/01/14 Discontinued Reported Medications Guaifenesin (MUCINEX) 600 Mg Tablet.er, 1 TAB PO DAILY, #14 TAB 10/14/17 PATRICIA BROWNE MD May 15, 2018 08:29
--- NOTE | 2018-05-15 08:53 | PDOC ---
SUBJECTIVE Subjective Doing well this morning, no pain. Ready to go home when PT/OT have eval'd OBJECTIVE Objective Reviewed. Vital Signs Vital Signs Date Time Temp Pulse Resp B/P (MAP) Pulse Ox O2 Delivery O2 Flow Rate FiO2 05/15/18 07:00 98.2 65 18 154/64 (94) 94 Nasal Cannula 2.0 98.2 05/15/18 06:56 Nasal Cannula 1.0 05/15/18 03:15 98.3 76 18 102/55 (71) 91 Nasal Cannula 2.0 98.3 05/14/18 22:49 98.1 74 18 88/47 (61) 91 Nasal Cannula 2.0 98.1 05/14/18 20:00 Nasal Cannula 1.0 05/14/18 19:54 92 Nasal Cannula 1.0 05/14/18 19:53 92 Nasal Cannula 1.0 05/14/18 19:15 97.8 88 20 91/48 (62) 93 Nasal Cannula 2.0 97.8 05/14/18 15:52 90 Nasal Cannula 1.0 05/14/18 15:00 97.9 81 18 85 Nasal Cannula 1.0 97.9 05/14/18 14:00 97.9 78 18 101/56 (71) 93 Nasal Cannula 1.0 97.9 05/14/18 13:00 97.9 80 18 103/55 (71) 83 Nasal Cannula 2.0 97.9 05/14/18 12:30 97.9 75 18 107/49 (68) 91 Nasal Cannula 2.0 97.9 05/14/18 12:00 97.9 86 18 112/57 (75) 86 Nasal Cannula 4.0 97.9 05/14/18 11:51 91 Nasal Cannula 2.0 05/14/18 11:45 97.9 81 18 112/58 (76) 82 Nasal Cannula 4.0 97.9 05/14/18 11:30 97.9 81 18 124/57 (79) 86 Nasal Cannula 4.0 97.9 05/14/18 11:15 97.9 74 18 127/58 (81) 94 Nasal Cannula 4.0 97.9 05/14/18 11:00 97.9 74 18 122/58 (79) 94 Nasal Cannula 4.0 97.9 05/14/18 10:30 98.1 77 16 118/58 95 Nasal Cannula 4 98.1 05/14/18 10:15 74 16 135/63 100 Simple Mask 10 05/14/18 10:00 98.1 76 16 121/57 99 Simple Mask 10 98.1 05/14/18 10:00 Mask 10 05/14/18 09:22 98.0 80 24 138/65 95 Nasal Cannula 2.0 98.0 I & O Intake and Output 05/15/18 07:00 Intake Total 1160 ml Output Total 3550 ml Balance -2390 ml Intake Oral 1160 ml Output Urine Total 3550 ml PHYSICAL EXAM Physical Exam Alert, oriented Nasal cannula in place RRR Coarse breath sounds bilaterally, at baseline for this pt No edema in b/l LEs ASSESSMENT/PLAN Assessment/Plan R hip dislocation s/p reduction Chronic bronchiectasis Requiring more O2 lately, likely related to atelectasis. Has been given abx recently for exacerbations, continuing to improve Await PT/OT eval, likely dc later today with home health. PATRICIA BROWNE MD May 15, 2018 08:53
[2018-05-15] MEDS: MULTIVITAMIN with MINERAL TABLET. PO SCH (08:59)
[2018-05-15] MEDS: CALCIUM CARB/VIT D3 500/200 TABLET. PO SCH (08:59)
[2018-05-15] MEDS: FLUTICASONE 50MCG/NASAL SPRAY 16GM BOTTLE. NS SCH (08:59)
--- NOTE | 2018-05-15 10:07 | PDOC ---
ORTHO PROGRESS NOTES Subjective No hip pain, was up in chair last night Vitals Vital Signs Date Time Temp Pulse Resp B/P (MAP) Pulse Ox O2 Delivery O2 Flow Rate FiO2 05/15/18 07:00 98.2 65 18 154/64 (94) 94 Nasal Cannula 2.0 98.2 Labs Laboratory Tests Test 05/13/18 20:15 05/13/18 23:28 White Blood Count 6.8 x10^3/uL (4.0-11.0) Red Blood Count 3.39 x10^6/uL (3.50-5.40) Hemoglobin 11.3 g/dL (12.0-15.5) Hematocrit 33.1 % (36.0-47.0) Mean Corpuscular Volume 98 fL (79-100) Mean Corpuscular Hemoglobin 33 pg (25-35) Mean Corpuscular Hemoglobin Concent 34 g/dL (31-37) Red Cell Distribution Width 14.7 % (11.5-14.5) Platelet Count 170 x10^3/uL (140-400) Neutrophils (%) (Auto) 67 % (31-73) Lymphocytes (%) (Auto) 21 % (24-48) Monocytes (%) (Auto) 8 % (0-9) Eosinophils (%) (Auto) 3 % (0-3) Basophils (%) (Auto) 1 % (0-3) Neutrophils # (Auto) 4.6 x10^3uL (1.8-7.7) Lymphocytes # (Auto) 1.4 x10^3/uL (1.0-4.8) Monocytes # (Auto) 0.5 x10^3/uL (0.0-1.1) Eosinophils # (Auto) 0.2 x10^3/uL (0.0-0.7) Basophils # (Auto) 0.0 x10^3/uL (0.0-0.2) Sodium Level 141 mmol/L (136-145) Potassium Level 4.1 mmol/L (3.5-5.1) Chloride Level 104 mmol/L (98-107) Carbon Dioxide Level 37 mmol/L (21-32) Anion Gap 0 (6-14) Blood Urea Nitrogen 24 mg/dL (7-20) Creatinine 1.0 mg/dL (0.6-1.0) Estimated GFR (Cockcroft-Gault) 52.7 BUN/Creatinine Ratio 24 (6-20) Glucose Level 127 mg/dL (70-99) Calcium Level 8.6 mg/dL (8.5-10.1) Total Bilirubin 0.1 mg/dL (0.2-1.0) Aspartate Amino Transf (AST/SGOT) 20 U/L (15-37) Alanine Aminotransferase (ALT/SGPT) 29 U/L (14-59) Alkaline Phosphatase 75 U/L (46-116) Total Protein 6.8 g/dL (6.4-8.2) Albumin 3.0 g/dL (3.4-5.0) Albumin/Globulin Ratio 0.8 (1.0-1.7) Nasal Screen MRSA (PCR) Negative (Negative) Notes A and A no deformity BLE NVI pillow in place Assessment and Plan PT/OT teaching for ADLs, hip precautions ok to D/C after that JONATAN ZAMBRANO II, MD May 15, 2018 10:07
[2018-05-15 11:00] VITALS: BP 101/54
[2018-05-15 15:00] VITALS: BP 114/56
--- NOTE | 2018-05-16 09:35 | PDOC3 ---
Discharge Summary Date of Admission: May 14, 2018 Date of Discharge: May 15, 2019 Admitting Diagnosis comment: R hip dislocation FINAL DIAGNOSIS Problems Medical Problems: (1) Dislocation of internal right hip prosthesis Status: Acute Brief Hospital Course Ms. Crocker is a 87 old female with multiple comorbidities who presented to the ED for R hip pain and concern for dislocation which has happened in the past about 3 years previously. She did have dislocation, was evaluated by Dr. Barahona , who took her back to the OR for reduction under general anesthesia. The procedure was uncomplicated and she was discharged the next day with home health for PT/OT. All home medications were unchanged. Discharge Medications Current Medications Fentanyl Citrate (Fentanyl 2ml Vial) 25 mcg 1X ONCE IV Last administered on at 19:29; Start 05/13/18 at 19:00; Stop 05/13/18 at 19:01; Status DC Ondansetron HCl (Zofran) 4 mg 1X ONCE IV Last administered on 05/13/18at 19:29 ; Start 05/13/18 at 19:00; Stop 05/13/18 at 19:01; Status DC Sodium Chloride 1,000 ml @ 125 mls/hr 1X ONCE IV Last administered on at 20:07; Start 05/13/18 at 19:45; Stop 05/14/18 at 03:45; Status DC Fentanyl Citrate (Fentanyl 2ml Vial) 50 mcg 1X ONCE IV Last administered on at 20:13; Start 05/13/18 at 20:30; Stop 05/13/18 at 20:31; Status DC Ondansetron HCl (Zofran) 4 mg 1X ONCE IV ; Start 05/13/18 at 20:30; Stop at 20:31; Status DC Ondansetron HCl (Zofran) 4 mg PRN Q8HRS PRN IV NAUSEA/VOMITING 1ST CHOICE; Start 05/13/18 at 20:30; Stop 05/14/18 at 20:29; Status DC Fentanyl Citrate (Fentanyl 2ml Vial) 50 mcg PRN Q1HR PRN IV SEVERE PAIN Last administered on 05/14/18at 08:28; Start 05/13/18 at 20:30; Stop 05/14/18 at 20:29 ; Status DC Sodium Chloride 1,000 ml @ 100 mls/hr Q10H IV Last administered on 05/14/18at 04:35; Start 05/13/18 at 21:00; Stop 05/14/18 at 20:59; Status DC Azithromycin (Zithromax) 250 mg DAILY PO ; Start 05/14/18 at 09:00; Status Cancel Acetaminophen (Tylenol) 500 mg PRN BID PRN PO MILD PAIN / TEMP Last administered on 05/15/18at 15:00; Start 05/13/18 at 23:00; Stop 05/15/18 at 16: 49; Status DC Non-Formulary Medication (Albuterol Sulfate (Albuterol Sulfate Neb Soln)) 1 vial QID NEB ; Start 05/14/18 at 09:00; Status UNV Non-Formulary Medication (Alendronate Sodium (Fosamax)) 1 tab DAILY PO ; Start 05/14/18 at 09:00; Status UNV Calcium/Vitamin D (Oscal D 500mg/ 200uts) 1 tab BIDWMEALS PO Last administered on 05/15/18at 08:59; Start 05/14/18 at 08:00; Stop 05/15/18 at 16:49; Status DC Fluticasone Propionate (Flonase) 2 spray DAILY NS Last administered on at 08:59; Start 05/14/18 at 09:00; Stop 05/15/18 at 16:49; Status DC Non-Formulary Medication (Fluticasone/ Salmeterol (Advair 100-50 Diskus)) 1 puff BID IH ; Start 05/14/18 at 09:00; Status UNV Montelukast Sodium (Singulair) 10 mg QHS PO Last administered on 05/14/18at 22: 11; Start 05/14/18 at 21:00; Stop 05/15/18 at 16:49; Status DC Multivitamins (Thera M Plus) 1 tab DAILY PO Last administered on 05/15/18at 08: 59; Start 05/14/18 at 09:00; Stop 05/15/18 at 16:49; Status DC Polyethylene Glycol (miraLAX PACKET) 17 gm PRN DAILY PRN PO CONSTIPATION 1ST CHOICE; Start 05/14/18 at 09:00; Stop 05/15/18 at 16:49; Status DC Non-Formulary Medication (Tiotropium [place] (Spiriva)) 1 cap DAILY IH ; Start 05/14/18 at 09:00; Status UNV Albuterol/ Ipratropium (Duoneb) 3 ml RTQID NEB Last administered on 05/15/18at 15:33; Start 05/14/18 at 08:00; Stop 05/15/18 at 16:49; Status DC Budesonide (Pulmicort) 0.5 mg RTBID NEB Last administered on 05/15/18at 06:54; Start 05/14/18 at 08:00; Stop 05/15/18 at 16:49; Status DC Albuterol Sulfate (Ventolin Neb Soln) 2.5 mg PRN Q6HRS PRN NEB SHORTNESS OF BREATH Last administered on 05/13/18at 23:05; Start 05/13/18 at 23:00; Stop 03/23 at 16:49; Status DC Fentanyl Citrate (Fentanyl 2ml Vial) 25 mcg PRN Q5MIN PRN IV MILD PAIN; Start 05/14/18 at 08:00; Stop 05/14/18 at 12:32; Status DC Fentanyl Citrate (Fentanyl 2ml Vial) 50 mcg PRN Q5MIN PRN IV MODERATE TO SEVERE PAIN; Start 05/14/18 at 08:00; Stop 05/14/18 at 12:32; Status DC Morphine Sulfate (Morphine Sulfate) 1 mg PRN Q10MIN PRN IV SEVERE PAIN; Start 05/14/18 at 08:00; Stop 05/14/18 at 12:33; Status DC Ringer's Solution 1,000 ml @ 30 mls/hr Q24H IV ; Start 05/14/18 at 07:52; Stop 05/14/18 at 12:39; Status DC Lidocaine HCl (Xylocaine-Mpf 1% 2ml Vial) 2 ml PRN 1X PRN ID PRIOR TO IV START ; Start 05/14/18 at 08:00; Stop 05/14/18 at 12:35; Status DC Hydromorphone HCl (Dilaudid) 0.5 mg PRN Q10MIN PRN IV SEV PAIN, Second choice; Start 05/14/18 at 08:00; Stop 05/14/18 at 12:33; Status DC Prochlorperazine Edisylate (Compazine) 5 mg PACU PRN PRN IV NAUSEA, MRX1; Start 05/14/18 at 08:00; Stop 05/14/18 at 12:35; Status DC Propofol 20 ml @ As Directed STK-MED ONCE IV ; Start 05/14/18 at 09:05; Stop at 09:06; Status DC Lidocaine HCl (Lidocaine Pf 2% Vial) 5 ml STK-MED ONCE .ROUTE ; Start 05/14/18 at 09:05; Stop 05/14/18 at 09:06; Status DC Dexamethasone Sodium Phosphate (Decadron) 20 mg STK-MED ONCE .ROUTE ; Start 05/14/18 at 09:35; Stop 05/14/18 at 09:36; Status DC Ondansetron HCl (Zofran) 4 mg STK-MED ONCE .ROUTE ; Start 05/14/18 at 09:35; Stop 05/14/18 at 09:36; Status DC Ephedrine Sulfate (ePHEDrine PF IN SALINE SYRINGE) 50 mg STK-MED ONCE IV ; Start 05/14/18 at 09:48; Stop 05/14/18 at 09:49; Status DC Succinylcholine Chloride (Anectine) 200 mg STK-MED ONCE .ROUTE ; Start 05/14/18 at 09:48; Stop 05/14/18 at 09:49; Status DC Sevoflurane (Ultane) 15 ml STK-MED ONCE IH ; Start 05/14/18 at 09:56; Stop 05/14 at 09:57; Status DC Active Scripts Active Polyethylene Glycol 3350 17 Gm Powd.pack 17 Gm PO PRN DAILY PRN 30 Days Montelukast Sodium Tablet (Montelukast Sodium) 10 Mg Tablet 10 Mg PO QHS 30 Days Reported Azithromycin Tablet (Azithromycin) 250 Mg Tablet 250 Mg PO DAILY Calcium + Vitamin D Tablet (Calcium Carbonate/Vitamin D3) 1 Each Tablet 500 Mg PO BID Acetaminophen 500 Mg Tablet 1 Tab PO BID PRN Multivitamins (Multivitamin) 1 Each Tablet 1 Tab PO DAILY Flonase Allergy Relief (Fluticasone Propionate) 9.9 Ml [place].susp 2 Sprays NS DAILY Fosamax (Alendronate Sodium) 70 Mg Tablet 1 Tab PO DAILY Albuterol Sulfate Neb Soln (Albuterol Sulfate) 0.63 Mg/3 Ml Vial.neb 1 Vial NEB QID Spiriva (Tiotropium [place]) 18 Mcg Cap.w.dev 1 Cap IH DAILY Advair 100-50 Diskus (Fluticasone/Salmeterol) 1 Each Disk.w.dev 1 Puff IH BID Vital Signs Vital Signs Date Time Temp Pulse Resp B/P (MAP) Pulse Ox O2 Delivery O2 Flow Rate FiO2 05/15/18 15:33 Nasal Cannula 2.0 05/15/18 15:00 98.2 74 18 114/56 (31) 91 98.2 Allergies Allergies Coded Allergies Type Severity Reaction Last Updated Verified No Known Drug Allergies 05/09/18 No Disposition/Orders: D/C to Home w/ HH PATRICIA BROWNE MD May 16, 2018 09:35
== END 2018-05-15 16:20 | disposition home health service (06) ==
LOC: ER 18:46 → 4 NORTH 20:52
PROVIDERS: ADMIT Family Medicine; ATTEND Family Medicine
DX: T84.020A Dislocation of internal right hip prosthesis, initial encounter (principal); J44.9 Chronic obstructive pulmonary disease, unspecified; M81.0 Age-related osteoporosis without current pathological fracture; I10 Essential (primary) hypertension; Z87.11 Personal history of peptic ulcer disease; Z90.49 Acquired absence of other specified parts of digestive tract; Z90.710 Acquired absence of both cervix and uterus; Z96.643 Presence of artificial hip joint, bilateral; Z96.659 Presence of unspecified artificial knee joint; Z82.49 Family history of ischemic heart disease and other diseases of the circulatory system; W01.0XXA Fall on same level from slipping, tripping and stumbling without subsequent striking against object, initial encounter; Y79.2 Prosthetic and other implants, materials and accessory orthopedic devices associated with adverse incidents
CPT/HCPCS: 27266; 36415; 73502; 76001; 80053; 85025; 87641; 93005; 94640; 96374; 96375; 96376; 97110; 97116; 97162; 97166; 97530; 97535; 99284; A7015; G0378; G8978; G8979; J0330; J1100; J2001; J2405; J2704; J3010; J7030; J7613; J7620; J7626; G0379

== ENCOUNTER → 2018-05-23 | Outpatient (CLI) | payer BC ==
[2018-05-15 15:00] VITALS: BP 114/56
--- NOTE | 2018-05-23 15:35 | KCIC ---
3 views of the right ankle without comparison for right lateral foot and ankle pain, bruising and swelling status post a fall 9 days ago. FINDINGS: There is no fracture, dislocation, or acute osseous abnormality identified. There is generalized soft tissue swelling. The ankle mortise is symmetric. A sharp calcaneal bone spur is present. No definite ankle effusion. IMPRESSION: 1. No acute osseous abnormality of the right ankle. Electronically signed by: Mau Baron MD (05/23/2018 3:32 PM) [facility]
--- NOTE | 2018-05-23 15:39 | KCIC ---
3 views the right foot without comparison for right lateral foot and ankle pain, bruising and swelling, status post fall 9 days ago. FINDINGS: There are fractures of the third, fourth and fifth metatarsal heads, with subtle valgus angulation, as well as mild impaction at the fifth metatarsal head. There does appear to be some callus formation particularly around the fifth metatarsal head, consistent with ongoing healing. There is a small poorly corticated bone fragment adjacent to the right fourth metatarsal head however, suggesting acuity. No other fracture or acute osseous abnormalities are identified. Joints and soft tissues are grossly unremarkable. IMPRESSION: 1. Fractures of the metatarsal heads of the third, fourth, and fifth metatarsals, with mild valgus angulation and slight impaction of the fifth metatarsal head. Electronically signed by: Mau Baron MD (05/23/2018 3:35 PM) [facility]
== END | disposition home or self-care (01) ==
LOC: KCIC 11:41
PROVIDERS: ATTEND Family Medicine
DX: S92.331A Displaced fracture of third metatarsal bone, right foot, initial encounter for closed fracture (principal); S92.341A Displaced fracture of fourth metatarsal bone, right foot, initial encounter for closed fracture; S92.351A Displaced fracture of fifth metatarsal bone, right foot, initial encounter for closed fracture; M77.31 Calcaneal spur, right foot; L84 Corns and callosities; X58.XXXA Exposure to other specified factors, initial encounter; Y93.89 Activity, other specified; Y92.89 Other specified places as the place of occurrence of the external cause; Y99.8 Other external cause status
CPT/HCPCS: 73610; 73630

== ENCOUNTER 2018-09-03 18:46 | Inpatient (IN) | payer BC ==
[~2018-09-03] VITALS: Ht 167.6 cm; Wt 74.4 kg
[2018-09-03] MEDS ORDERED: methylPREDNISolone SOD SUCC PF 125 MG/2 ML VIAL. IV ONE (19:30)
[2018-09-03 19:52] LABS: BASO % 1 % (0-3); EOS # 0.1 x10^3/uL (0.0-0.7); EOS % 1 % (0-3); HEMOGLOBIN 11.8 g/dL (12.0-15.5); LYMPH # 1.7 x10^3/uL (1.0-4.8); LYMPH % 28 % (24-48); MEAN CORPUSCULAR HEMOGLOBIN 32 pg (25-35); MEAN CORPUSCULAR HGB CONC 33 g/dL (31-37); MEAN CORPUSCULAR VOLUME 97 fL (79-100); MONO # 0.5 x10^3/uL (0.0-1.1); MONO % 7 % (0-9); NEUT # 3.9 x10^3uL (1.8-7.7); NEUT % 63 % (31-73); PLATELET COUNT 209 x10^3/uL (140-400); RED BLOOD COUNT 3.73 x10^6/uL (3.50-5.40); RED CELL DISTRIBUTION WIDTH 14.7 % (11.5-14.5); WHITE BLOOD COUNT 6.2 x10^3/uL (4.0-11.0)
[2018-09-03 20:10] LABS: CALCIUM 8.9 mg/dL (8.5-10.1); CREATININE 1.3 mg/dL (0.6-1.0); GFR 38.9; POTASSIUM 4.1 mmol/L (3.5-5.1)
[2018-09-03 20:18] LABS: BILIRUBIN,URINE NEGATIVE (NEG); CLARITY,URINE CLEAR; COLOR,URINE YELLOW; NITRITE,URINE NEGATIVE (NEG); PH,URINE 6.5; PROTEIN,URINE NEGATIVE (NEG-TRACE); UROBILINOGEN,URINE 0.2 mg/dL (0.2 mg/dL)
[2018-09-03 20:21] LABS: ALBUMIN 3.5 g/dL (3.4-5.0); MAGNESIUM 2.4 mg/dL (1.8-2.4); TOTAL BILIRUBIN 0.3 mg/dL (0.2-1.0)
[2018-09-03 20:26] LABS: BACTERIA,URINE 0 /HPF (0-FEW); RBC,URINE OCC /HPF (0-2); SQUAMOUS EPITHELIAL CELL,UR FEW /LPF; WBC,URINE 0 /HPF (0-4)
[2018-09-03 20:34] LABS: INFLUENZA A PATIENT NEGATIVE (NEGATIVE); INFLUENZA B PATIENT NEGATIVE (NEGATIVE)
--- NOTE | 2018-09-03 20:38 | PHYS DOC ---
Past Medical History Past Medical History: COPD, Hypertension, Lung Disease, Pneumonia, Other Additional Past Medical Histor: STOMACH ULCERS,BRONCHIECTASIS, Osteoporosis Past Surgical History: Appendectomy, Hip Replacement, Hysterectomy, Knee Replacement, Tonsillectomy, Other Additional Past Surgical Histo: Partial L LOBECTOMY,BLADDER,CATARACT,RECTOCELE , RT KNEE, Bilateral Hip Alcohol Use: None Drug Use: None Adult General Chief Complaint Chief Complaint: SHORTNESS OF BREATH HPI HPI 87-year-old female presents to ER for complaints of increased shortness of air which has gradually worsened over the past 4 days. She reports she is on O2 at home but has had to increase from 2 to 3L as she has been SOA w/any exertion. Review of Systems Review of Systems Constitutional: Denies fever or chills Eyes: Denies change in visual acuity, redness, or eye pain [] HENT: Denies nasal congestion or sore throat [] Respiratory: Reports increased SOA Cardiovascular: No additional information not addressed in HPI [] GI: Denies abdominal pain, nausea, vomiting, bloody stools or diarrhea [] : Denies dysuria or hematuria [] Musculoskeletal: Denies back/neck pain or joint pain [] Integument: Denies rash or skin lesions [] Neurologic: Denies headache, focal weakness or sensory changes [] Endocrine: Denies polyuria or polydipsia [] All other systems were reviewed and found to be within normal limits, except as documented in this note. Current Medications Current Medications Current Medications Medications (Trade) Dose Ordered Sig/Sudhakar Start Time Stop Time Status Last Admin Dose Admin Methylprednisolone Sodium Succinate (SOLU-Medrol 125MG VIAL) 125 mg 1X ONCE 09/03/18 19:30 09/03/18 19:31 DC 09/03/18 19:55 125 MG Allergies Allergies Allergies Coded Allergies Type Severity Reaction Last Updated Verified No Known Drug Allergies 07/05/18 No Physical Exam Physical Exam Constitutional: Well developed, well nourished, no acute distress, non-toxic appearance. HENT: Normocephalic, atraumatic, bilateral ears normal, mucous membranes pink/ dry, no oral exudates, nose normal. [] Eyes: Pupils equal, conjunctiva normal, no discharge. [] Neck: Normal range of motion, no tenderness, supple, no stridor. Trachea midline Cardiovascular: Heart rate regular rhythm, no murmur [] Lungs & Thorax: Coarse bilat. rhonchi bilat. upper lobes w/expir. wheezing- diminished in bases. Resp. equal/slightly labored on initial exam. On O2 via NC at 3L. Speaking in full sentences Abdomen: Bowel sounds normal, soft, no tenderness, no masses, no pulsatile masses. [] Skin: Warm, dry, no erythema, no rash. [] Back: No tenderness, no CVA tenderness. [] Extremities: No tenderness, no cyanosis, no clubbing, ROM intact, no edema. [] Neurologic: Alert and oriented X 3, normal motor function, normal sensory function, no focal deficits noted. [] Psychologic: Affect normal, judgement normal, mood normal. [] Current Patient Data Vital Signs Vital Signs Date Time Temp Pulse Resp B/P (MAP) Pulse Ox O2 Delivery O2 Flow Rate FiO2 09/03/18 19:37 78 133/67 (89) 99 Nasal Cannula 3.0 09/03/18 19:10 97.9 20 97.9 Lab Values Laboratory Tests Test 09/03/18 19:45 09/03/18 19:48 09/03/18 20:05 White Blood Count 6.2 x10^3/uL (4.0-11.0) Red Blood Count 3.73 x10^6/uL (3.50-5.40) Hemoglobin 11.8 g/dL (12.0-15.5) L Hematocrit 36.0 % (36.0-47.0) Mean Corpuscular Volume 97 fL (79-100) Mean Corpuscular Hemoglobin 32 pg (25-35) Mean Corpuscular Hemoglobin Concent 33 g/dL (31-37) Red Cell Distribution Width 14.7 % (11.5-14.5) H Platelet Count 209 x10^3/uL (140-400) Neutrophils (%) (Auto) 63 % (31-73) Lymphocytes (%) (Auto) 28 % (24-48) Monocytes (%) (Auto) 7 % (0-9) Eosinophils (%) (Auto) 1 % (0-3) Basophils (%) (Auto) 1 % (0-3) Neutrophils # (Auto) 3.9 x10^3uL (1.8-7.7) Lymphocytes # (Auto) 1.7 x10^3/uL (1.0-4.8) Monocytes # (Auto) 0.5 x10^3/uL (0.0-1.1) Eosinophils # (Auto) 0.1 x10^3/uL (0.0-0.7) Basophils # (Auto) 0.0 x10^3/uL (0.0-0.2) Sodium Level 140 mmol/L (136-145) Potassium Level 4.1 mmol/L (3.5-5.1) Chloride Level 100 mmol/L (98-107) Carbon Dioxide Level 35 mmol/L (21-32) H Anion Gap 5 (6-14) L Blood Urea Nitrogen 27 mg/dL (7-20) H Creatinine 1.3 mg/dL (0.6-1.0) H Estimated GFR (Cockcroft-Gault) 38.9 BUN/Creatinine Ratio 21 (6-20) H Glucose Level 100 mg/dL (70-99) H Calcium Level 8.9 mg/dL (8.5-10.1) Magnesium Level 2.4 mg/dL (1.8-2.4) Total Bilirubin 0.3 mg/dL (0.2-1.0) Aspartate Amino Transferase (AST) 15 U/L (15-37) Alanine Aminotransferase (ALT) 22 U/L (14-59) Alkaline Phosphatase 54 U/L (46-116) Troponin I Quantitative 0.024 ng/mL (0.000-0.055) EO-Poq-U-Type Natriuretic Peptide 602 pg/mL (0-449) H Total Protein 7.0 g/dL (6.4-8.2) Albumin 3.5 g/dL (3.4-5.0) Albumin/Globulin Ratio 1.0 (1.0-1.7) Influenza Type A Antigen Negative (NEGATIVE) Influenza Type B Antigen Negative (NEGATIVE) Urine Collection Type Unknown Urine Color Yellow Urine Clarity Clear Urine pH 6.5 Urine Specific [place] <=1.005 Urine Protein Negative mg/dL (NEG-TRACE) Urine Glucose (UA) Negative mg/dL (NEG) Urine Ketones (Stick) Negative mg/dL (NEG) Urine Blood Trace (NEG) Urine Nitrite Negative (NEG) Urine Bilirubin Negative (NEG) Urine Urobilinogen Dipstick 0.2 mg/dL (0.2 mg/dL) Urine Leukocyte Esterase Trace (NEG) Urine RBC Occ /HPF (0-2) Urine WBC 0 /HPF (0-4) Urine Squamous Epithelial Cells Few /LPF Urine Bacteria 0 /HPF (0-FEW) Laboratory Tests 09/03/18 19:45 Laboratory Tests 09/03/18 19:45 Microbiology 09/03/18 Urine Culture - Final, Complete 09/03/18 Urine Culture Result 1 (MACIE) - Final, Complete EKG EKG EKG obtained 09/03/18 at 2018 Interpreted by ER physician SR PVCs Rate 72 No STEMI Radiology/Procedures Radiology/Procedures PROCEDURE: CHEST PA & LATERAL Two-view chest dated 09/03/2018. Comparison made to 11/10/2017. Clinical data indication: Shortness of breath. FINDINGS: PA and lateral views obtained. Heart size mildly enlarged, stable. Consolidation at the retrocardiac left base with blunting of the left costophrenic sulcus and elevation of the left hemidiaphragm, unchanged. Mild mild linear opacity at the right lung base, likely atelectasis. No pneumothorax. IMPRESSION: 1. No acute radiographic abnormality. 2. Patchy bibasilar opacity, likely scar or atelectasis, unchanged. 3. Elevation of left hemidiaphragm and blunting of left costophrenic sulcus, also unchanged. Electronically signed by: Hugh Chiu MD (09/03/2018 8:37 PM) [facility] [place] DICTATED and SIGNED BY: HUGH CHIU MD DATE: 09/03/182036 Course & Med Decision Making Course & Med Decision Making Pertinent Labs and Imaging studies reviewed. (See chart for details) 2030: Pt was evaluated in the ER for c/o increased SOA- she had Duoneb tx and dose of Solu-Medrol and continued to have coarse rhonchi in bilat. upper lobes on re-exam. Labs and chest xray was obtained WBCs NL at 6.2 and no acute findings reported on imaging. EKG with no acute STEMI/ST elevation and troponin 0.024. BNP 602. Neg. flu test. With pt still feeling SOA after txs received discussed admission and she is agreeable with plan. Spoke with Dr. Hough, pt' s PCP and discussed pt's case and admit plan. Will consult pulmonology with admit orders. Tiffanie Disclaimer Dragon Disclaimer This electronic medical record was generated, in whole or in part, using a voice recognition dictation system. Departure Departure Impression: Primary Impression: COPD exacerbation Disposition: ADMITTED INPATIENT Admitting Physician: Mick Hough Condition: STABLE Referrals: MICK HOUGH MD (PCP) Scripts Prednisone (PREDNISONE) 20 Mg Tablet 40 MG PO DAILY for bronchiectasis for 11 Days, #22 TAB 40mg daily x 3 days, 30mg daily x 3 days, 20 mg daily x 3 days, 10mg daily x 2 days Prov: PATRICIA BROWNE MD 09/06/18 YAMILA SANTOS APRN Sep 03, 2018 20:38
[2018-09-03] MEDS ORDERED: ACETAMINOPHEN 325 MG TABLET. PO PRN (20:45)
[2018-09-03] MEDS ORDERED: AZITHRMYCN 500MG IVPB FOR OMNI 250 ML IV ONE (21:00)
[2018-09-03] MEDS ORDERED: IPRATRPIUM/ALBUTEROL 0.5/2.5MG 3 ML NEBU. NEB ONE (21:00)
[2018-09-03] MEDS ORDERED: cefTRIAXone IV Push 1 GM VIAL. IVP ONE (21:00)
[2018-09-03 23:00] VITALS: BP 151/88
[2018-09-04 03:55] VITALS: BP 144/84
--- NOTE | 2018-09-04 03:57 | NUR ---
pt verbalized she has an appointment at Dr. Borrero's office tomorrow 09/05/18.
[2018-09-04 04:15] LABS: BASO % 0 % (0-3); EOS % 0 % (0-3); HEMATOCRIT 36.1 % (36.0-47.0); HEMOGLOBIN 11.8 g/dL (12.0-15.5); LYMPH # 0.4 x10^3/uL (1.0-4.8); LYMPH % 9 % (24-48); MEAN CORPUSCULAR HEMOGLOBIN 32 pg (25-35); MEAN CORPUSCULAR HGB CONC 33 g/dL (31-37); MEAN CORPUSCULAR VOLUME 97 fL (79-100); MONO # 0.1 x10^3/uL (0.0-1.1); MONO % 1 % (0-9); NEUT # 4.7 x10^3uL (1.8-7.7); NEUT % 90 % (31-73); PLATELET COUNT 207 x10^3/uL (140-400); RED BLOOD COUNT 3.73 x10^6/uL (3.50-5.40); RED CELL DISTRIBUTION WIDTH 14.7 % (11.5-14.5); WHITE BLOOD COUNT 5.3 x10^3/uL (4.0-11.0)
[2018-09-04 05:35] LABS: CALCIUM 8.6 mg/dL (8.5-10.1); GFR 52.7; POTASSIUM 4.3 mmol/L (3.5-5.1)
[2018-09-04 07:00] VITALS: BP 124/64
--- NOTE | 2018-09-04 07:50 | EKG ---
[facility] [address] [place] [address] Test Date: 2018-09-03 Test Time: 20:18:43 Pat Name: GISELLE KEITH Department: Room: 652 1 Gender: F Hand Sander: : 1930 Requested By: YAMILA SANTOS Order Number: [id number] Reading MD: Jd Ortega MD Measurements Intervals [place] Rate: 72 P: [place]: QRS: -35 QRSD: 128 T: 70 QT: 372 QTc: 413 Interpretive Statements PROBABLE SR PVC'S LAD BASELINE ARTIFACT NON-SPECIFIC ST/T CHANGES Electronically Signed On 09-04-2018 14:48:06 CDT by Jd Ortega MD
[2018-09-04] MEDS ORDERED: IPRATRPIUM/ALBUTEROL 0.5/2.5MG 3 ML NEBU. NEB SCH (08:00)
--- NOTE | 2018-09-04 08:05 | PDOC1 ---
H & P H&P HPI: Mrs. Crocker is an 87-year-old female with PMH of chronic hypoxic respiratory failure 2/2 bronchiectasis, s/p partial left lung resection, HTN, osteoporosis, who presented to the Emergency Room complaining of increasing shortness of breath for the past 4 days with some increased O2 requirement from baseline. Denies change in sputum quantity or color. She takes azithromycin daily on a prophylactic basis and receives IVIG infusions from . Started prednisone 20mg daily on Tuesday at home. Labs and CXR are fairly unremarkable. PAST MEDICAL HISTORY: As above PAST SURGICAL HISTORY: Remarkable for an appendectomy, hip replacement, hysterectomy, knee replacement, tonsillectomy, shoulder surgery, left lobectomy, bladder surgery, cataract surgery, rectocele repair. MEDICATIONS: Reviewed and reconciled. ALLERGIES: She has no known drug allergies. SOCIAL HISTORY: , never smoker, no significant alcohol use. FAMILY HISTORY: Noncontributory. REVIEW OF SYSTEMS: As mentioned above. PHYSICAL EXAMINATION: GENERAL: She is a well-developed, well-nourished white female, in no acute distress. HEENT: EOMI, PERLLA. NECK: Supple. CHEST: Decreased to auscultation bilaterally with wheezes and rhonchi throughout , appears to be similar to baseline HEART: Regular rate and rhythm without murmur EXTREMITIES: No edema. NEUROLOGIC: Nonfocal, alert, oriented Assessment/Plan: Acute on chronic hypoxic respiratory failure 2/2 bronchiectasis exacerbation Chronic conditions as above Pulm consulted Abx/steroids, breathing treatments Continue home medications PATRICIA BROWNE MD Sep 04, 2018 08:05
[2018-09-04] MEDS ORDERED: ALBUTEROL SULFATE 2.5 MG/3 ML NEBU. NEB PRN (08:15)
[2018-09-04] MEDS ORDERED: ACETAMINOPHEN 500 MG TABLET PO PRN (08:15)
[2018-09-04] MEDS ORDERED: NON FORMULARY ITEM (Tiotropium Bromide (Spiriva) 1 CAP) IH SCH (09:00)
[2018-09-04] MEDS ORDERED: POLYETHYLENE GLYCOL 3350 17 GM PACKET. PO PRN (09:00)
[2018-09-04] MEDS ORDERED: predniSONE 20 MG TABLET PO SCH (09:30)
[2018-09-04 10:11] LABS: % LYMPHS 9 % (24-48); % MONOS 3 % (0-10); % SEGS 88 % (35-66)
[2018-09-04 10:12] LABS: PLT ESTIMATE ADEQUATE (ADEQUATE)
[2018-09-04] MEDS ORDERED: TRIA1TAB2 PO (10:23)
[2018-09-04] MEDS: FLUTICASONE 50MCG/NASAL SPRAY 16GM BOTTLE. NS SCH (10:26)
[2018-09-04 11:05] VITALS: BP 123/67
[2018-09-04] MEDS: IPRATRPIUM/ALBUTEROL 0.5/2.5MG 3 ML NEBU. NEB SCH ×3 (12:01→20:09)
[2018-09-04 15:10] VITALS: BP 134/76
--- NOTE | 2018-09-04 17:18 | PDOC ---
PULMONARY PROGRESS NOTES Vitals Vital Signs Date Time Temp Pulse Resp B/P (MAP) Pulse Ox O2 Delivery O2 Flow Rate FiO2 09/04/18 15:50 98 Nasal Cannula 3.0 09/04/18 15:10 97.9 72 20 134/76 (95) 97.9 General: Alert, Oriented X4, No acute distress HEENT: Other Lungs: Clear Cardiovascular: S1, S2 Abdomen: Soft, Non-tender Extremities: No Edema Labs Laboratory Tests Test 09/03/18 19:45 09/03/18 19:48 09/03/18 20:05 09/03/18 21:12 White Blood Count 6.2 x10^3/uL (4.0-11.0) Red Blood Count 3.73 x10^6/uL (3.50-5.40) Hemoglobin 11.8 g/dL (12.0-15.5) Hematocrit 36.0 % (36.0-47.0) Mean Corpuscular Volume 97 fL (79-100) Mean Corpuscular Hemoglobin 32 pg (25-35) Mean Corpuscular Hemoglobin Concent 33 g/dL (31-37) Red Cell Distribution Width 14.7 % (11.5-14.5) Platelet Count 209 x10^3/uL (140-400) Neutrophils (%) (Auto) 63 % (31-73) Lymphocytes (%) (Auto) 28 % (24-48) Monocytes (%) (Auto) 7 % (0-9) Eosinophils (%) (Auto) 1 % (0-3) Basophils (%) (Auto) 1 % (0-3) Neutrophils # (Auto) 3.9 x10^3uL (1.8-7.7) Lymphocytes # (Auto) 1.7 x10^3/uL (1.0-4.8) Monocytes # (Auto) 0.5 x10^3/uL (0.0-1.1) Eosinophils # (Auto) 0.1 x10^3/uL (0.0-0.7) Basophils # (Auto) 0.0 x10^3/uL (0.0-0.2) Sodium Level 140 mmol/L (136-145) Potassium Level 4.1 mmol/L (3.5-5.1) Chloride Level 100 mmol/L (98-107) Carbon Dioxide Level 35 mmol/L (21-32) Anion Gap 5 (6-14) Blood Urea Nitrogen 27 mg/dL (7-20) Creatinine 1.3 mg/dL (0.6-1.0) Estimated GFR (Cockcroft-Gault) 38.9 BUN/Creatinine Ratio 21 (6-20) Glucose Level 100 mg/dL (70-99) Calcium Level 8.9 mg/dL (8.5-10.1) Magnesium Level 2.4 mg/dL (1.8-2.4) Total Bilirubin 0.3 mg/dL (0.2-1.0) Aspartate Amino Transf (AST/SGOT) 15 U/L (15-37) Alanine Aminotransferase (ALT/SGPT) 22 U/L (14-59) Alkaline Phosphatase 54 U/L (46-116) Troponin I Quantitative 0.024 ng/mL (0.000-0.055) OY-Pxg-R-Type Natriuretic Peptide 602 pg/mL (0-449) Total Protein 7.0 g/dL (6.4-8.2) Albumin 3.5 g/dL (3.4-5.0) Albumin/Globulin Ratio 1.0 (1.0-1.7) Influenza Type A Antigen Negative (NEGATIVE) Influenza Type B Antigen Negative (NEGATIVE) Urine Collection Type Unknown Urine Color Yellow Urine Clarity Clear Urine pH 6.5 Urine Specific [place] <=1.005 Urine Protein Negative mg/dL (NEG-TRACE) Urine Glucose (UA) Negative mg/dL (NEG) Urine Ketones (Stick) Negative mg/dL (NEG) Urine Blood Trace (NEG) Urine Nitrite Negative (NEG) Urine Bilirubin Negative (NEG) Urine Urobilinogen Dipstick 0.2 mg/dL (0.2 mg/dL) Urine Leukocyte Esterase Trace (NEG) Urine RBC Occ /HPF (0-2) Urine WBC 0 /HPF (0-4) Urine Squamous Epithelial Cells Few /LPF Urine Bacteria 0 /HPF (0-FEW) Lactic Acid Level 1.0 mmol/L (0.4-2.0) Test 09/04/18 03:50 White Blood Count 5.3 x10^3/uL (4.0-11.0) Red Blood Count 3.73 x10^6/uL (3.50-5.40) Hemoglobin 11.8 g/dL (12.0-15.5) Hematocrit 36.1 % (36.0-47.0) Mean Corpuscular Volume 97 fL (79-100) Mean Corpuscular Hemoglobin 32 pg (25-35) Mean Corpuscular Hemoglobin Concent 33 g/dL (31-37) Red Cell Distribution Width 14.7 % (11.5-14.5) Platelet Count 207 x10^3/uL (140-400) Neutrophils (%) (Auto) 90 % (31-73) Lymphocytes (%) (Auto) 9 % (24-48) Monocytes (%) (Auto) 1 % (0-9) Eosinophils (%) (Auto) 0 % (0-3) Basophils (%) (Auto) 0 % (0-3) Neutrophils # (Auto) 4.7 x10^3uL (1.8-7.7) Lymphocytes # (Auto) 0.4 x10^3/uL (1.0-4.8) Monocytes # (Auto) 0.1 x10^3/uL (0.0-1.1) Eosinophils # (Auto) 0.0 x10^3/uL (0.0-0.7) Basophils # (Auto) 0.0 x10^3/uL (0.0-0.2) Segmented Neutrophils % 88 % (35-66) Lymphocytes % 9 % (24-48) Monocytes % 3 % (0-10) Platelet Estimate Adequate (ADEQUATE) Large Platelets Occ Sodium Level 141 mmol/L (136-145) Potassium Level 4.3 mmol/L (3.5-5.1) Chloride Level 101 mmol/L (98-107) Carbon Dioxide Level 33 mmol/L (21-32) Anion Gap 7 (6-14) Blood Urea Nitrogen 21 mg/dL (7-20) Creatinine 1.0 mg/dL (0.6-1.0) Estimated GFR (Cockcroft-Gault) 52.7 Glucose Level 151 mg/dL (70-99) Calcium Level 8.6 mg/dL (8.5-10.1) Troponin I Quantitative 0.022 ng/mL (0.000-0.055) Laboratory Tests Test 09/03/18 19:45 09/03/18 19:48 09/03/18 20:05 09/03/18 21:12 White Blood Count 6.2 x10^3/uL (4.0-11.0) Red Blood Count 3.73 x10^6/uL (3.50-5.40) Hemoglobin 11.8 g/dL (12.0-15.5) Hematocrit 36.0 % (36.0-47.0) Mean Corpuscular Volume 97 fL (79-100) Mean Corpuscular Hemoglobin 32 pg (25-35) Mean Corpuscular Hemoglobin Concent 33 g/dL (31-37) Red Cell Distribution Width 14.7 % (11.5-14.5) Platelet Count 209 x10^3/uL (140-400) Neutrophils (%) (Auto) 63 % (31-73) Lymphocytes (%) (Auto) 28 % (24-48) Monocytes (%) (Auto) 7 % (0-9) Eosinophils (%) (Auto) 1 % (0-3) Basophils (%) (Auto) 1 % (0-3) Neutrophils # (Auto) 3.9 x10^3uL (1.8-7.7) Lymphocytes # (Auto) 1.7 x10^3/uL (1.0-4.8) Monocytes # (Auto) 0.5 x10^3/uL (0.0-1.1) Eosinophils # (Auto) 0.1 x10^3/uL (0.0-0.7) Basophils # (Auto) 0.0 x10^3/uL (0.0-0.2) Sodium Level 140 mmol/L (136-145) Potassium Level 4.1 mmol/L (3.5-5.1) Chloride Level 100 mmol/L (98-107) Carbon Dioxide Level 35 mmol/L (21-32) Anion Gap 5 (6-14) Blood Urea Nitrogen 27 mg/dL (7-20) Creatinine 1.3 mg/dL (0.6-1.0) Estimated GFR (Cockcroft-Gault) 38.9 BUN/Creatinine Ratio 21 (6-20) Glucose Level 100 mg/dL (70-99) Calcium Level 8.9 mg/dL (8.5-10.1) Magnesium Level 2.4 mg/dL (1.8-2.4) Total Bilirubin 0.3 mg/dL (0.2-1.0) Aspartate Amino Transf (AST/SGOT) 15 U/L (15-37) Alanine Aminotransferase (ALT/SGPT) 22 U/L (14-59) Alkaline Phosphatase 54 U/L (46-116) Troponin I Quantitative 0.024 ng/mL (0.000-0.055) NL-Chs-R-Type Natriuretic Peptide 602 pg/mL (0-449) Total Protein 7.0 g/dL (6.4-8.2) Albumin 3.5 g/dL (3.4-5.0) Albumin/Globulin Ratio 1.0 (1.0-1.7) Influenza Type A Antigen Negative (NEGATIVE) Influenza Type B Antigen Negative (NEGATIVE) Urine Collection Type Unknown Urine Color Yellow Urine Clarity Clear Urine pH 6.5 Urine Specific [place] <=1.005 Urine Protein Negative mg/dL (NEG-TRACE) Urine Glucose (UA) Negative mg/dL (NEG) Urine Ketones (Stick) Negative mg/dL (NEG) Urine Blood Trace (NEG) Urine Nitrite Negative (NEG) Urine Bilirubin Negative (NEG) Urine Urobilinogen Dipstick 0.2 mg/dL (0.2 mg/dL) Urine Leukocyte Esterase Trace (NEG) Urine RBC Occ /HPF (0-2) Urine WBC 0 /HPF (0-4) Urine Squamous Epithelial Cells Few /LPF Urine Bacteria 0 /HPF (0-FEW) Lactic Acid Level 1.0 mmol/L (0.4-2.0) Test 09/04/18 03:50 White Blood Count 5.3 x10^3/uL (4.0-11.0) Red Blood Count 3.73 x10^6/uL (3.50-5.40) Hemoglobin 11.8 g/dL (12.0-15.5) Hematocrit 36.1 % (36.0-47.0) Mean Corpuscular Volume 97 fL (79-100) Mean Corpuscular Hemoglobin 32 pg (25-35) Mean Corpuscular Hemoglobin Concent 33 g/dL (31-37) Red Cell Distribution Width 14.7 % (11.5-14.5) Platelet Count 207 x10^3/uL (140-400) Neutrophils (%) (Auto) 90 % (31-73) Lymphocytes (%) (Auto) 9 % (24-48) Monocytes (%) (Auto) 1 % (0-9) Eosinophils (%) (Auto) 0 % (0-3) Basophils (%) (Auto) 0 % (0-3) Neutrophils # (Auto) 4.7 x10^3uL (1.8-7.7) Lymphocytes # (Auto) 0.4 x10^3/uL (1.0-4.8) Monocytes # (Auto) 0.1 x10^3/uL (0.0-1.1) Eosinophils # (Auto) 0.0 x10^3/uL (0.0-0.7) Basophils # (Auto) 0.0 x10^3/uL (0.0-0.2) Segmented Neutrophils % 88 % (35-66) Lymphocytes % 9 % (24-48) Monocytes % 3 % (0-10) Platelet Estimate Adequate (ADEQUATE) Large Platelets Occ Sodium Level 141 mmol/L (136-145) Potassium Level 4.3 mmol/L (3.5-5.1) Chloride Level 101 mmol/L (98-107) Carbon Dioxide Level 33 mmol/L (21-32) Anion Gap 7 (6-14) Blood Urea Nitrogen 21 mg/dL (7-20) Creatinine 1.0 mg/dL (0.6-1.0) Estimated GFR (Cockcroft-Gault) 52.7 Glucose Level 151 mg/dL (70-99) Calcium Level 8.6 mg/dL (8.5-10.1) Troponin I Quantitative 0.022 ng/mL (0.000-0.055) Medications Active Scripts Medications Dose Route/Sig Max Daily Dose Days Date Category Maxzide 37.5 Mg-25 Mg Tablet (Triamterene/Hydrochlorothiazid) 1 Each Tablet 1 Each PO QMWF 09/04/18 Reported Polyethylene Glycol 3350 17 Gm Powd.pack 17 Gm PO PRN DAILY PRN 30 10/17/17 Rx Montelukast Sodium Tablet (Montelukast Sodium) 10 Mg Tablet 10 Mg PO QHS 30 10/17/17 Rx Calcium + Vitamin D Tablet (Calcium Carbonate/Vitamin D3) 1 Each Tablet 500 Mg PO BID 10/14/17 Reported Acetaminophen 500 Mg Tablet 1 Tab PO BID PRN 10/14/17 Reported Multivitamins (Multivitamin) 1 Each Tablet 1 Tab PO DAILY 10/14/17 Reported Flonase Allergy Relief (Fluticasone Propionate) 9.9 Ml [place].susp 2 Sprays NS DAILY 10/14/17 Reported Fosamax (Alendronate Sodium) 70 Mg Tablet 1 Tab PO WEEKLY 10/14/17 Reported Albuterol Sulfate Neb Soln (Albuterol Sulfate) 0.63 Mg/3 Ml Vial.neb 1 Vial NEB QID 03/01/14 Reported Spiriva (Tiotropium [place]) 18 Mcg Cap.w.dev 1 Cap IH DAILY 03/01/14 Reported Impression . FULL NOTE DICTATED THANKS ACUTE EAXC BRONCHIECTASIS ARELY SINGLETON MD Sep 04, 2018 17:18
[2018-09-04] MEDS: methylPREDNISolone SOD SUCC PF 125 MG/2 ML VIAL. IV SCH ×2 (17:31→20:37)
[2018-09-04 19:05] VITALS: BP 120/62
[2018-09-04] MEDS: cefTRIAXone IV Push 1 GM VIAL. IVP SCH (20:37)
[2018-09-04] MEDS: AZITHROMYCIN 250 MG in IV NORMAL SALINE 250ML 250 ML IV SCH (20:37)
[2018-09-04] MEDS: MONTELUKAST SODIUM 10 MG TABLET. PO SCH (20:37)
[2018-09-04 23:05] VITALS: BP 126/66
[2018-09-05 03:05] VITALS: BP 111/60
[2018-09-05] MEDS: methylPREDNISolone SOD SUCC PF 125 MG/2 ML VIAL. IV SCH ×3 (06:20→21:21)
[2018-09-05 07:10] VITALS: BP 137/85
[2018-09-05] MEDS: IPRATRPIUM/ALBUTEROL 0.5/2.5MG 3 ML NEBU. NEB SCH ×4 (07:16→19:33)
--- NOTE | 2018-09-05 08:04 | PDOC ---
SUBJECTIVE Subjective Doing well this AM. SOB may be somewhat better this AM. Cough nonproductive today. OBJECTIVE Objective Reviewed. Vital Signs Vital Signs Date Time Temp Pulse Resp B/P (MAP) Pulse Ox O2 Delivery O2 Flow Rate FiO2 09/05/18 07:17 99 Nasal Cannula 3.0 09/05/18 07:10 97.5 84 20 137/85 (102) 95 Nasal Cannula 3.0 97.5 09/05/18 03:05 97.7 66 18 111/60 (77) 97 Nasal Cannula 3.0 97.7 09/04/18 23:05 97.7 82 18 126/66 (86) 98 Nasal Cannula 3.0 97.7 09/04/18 20:10 98 Nasal Cannula 3.0 09/04/18 20:00 Nasal Cannula 3.0 09/04/18 19:05 98.3 80 18 120/62 (81) 98 Nasal Cannula 3.0 98.3 09/04/18 15:50 98 Nasal Cannula 3.0 09/04/18 15:10 97.9 72 20 134/76 (95) 98 Nasal Cannula 3.0 97.9 09/04/18 12:02 Nasal Cannula 3.0 09/04/18 11:05 97.6 71 20 123/67 (85) 97 Nasal Cannula 3.0 97.6 09/04/18 08:05 98 Nasal Cannula 3.0 I & O Intake and Output 09/05/18 07:00 Intake Total 1250 ml Balance 1250 ml Intake Oral 1250 ml # Voids 4 # Bowel Movements 1 PHYSICAL EXAM Physical Exam GENERAL: She is a well-developed, well-nourished white female, in no acute distress. HEENT: EOMI, PERLLA. NECK: Supple. CHEST: Decreased to auscultation with few wheezes, no appreciable rhonchi or crackles HEART: Regular rate and rhythm without murmur EXTREMITIES: No edema. NEUROLOGIC: Nonfocal, alert, oriented ASSESSMENT/PLAN Assessment/Plan Acute on chronic hypoxic respiratory failure 2/2 bronchiectasis exacerbation Chronic conditions - continuing home medications Pulm following Abx/steroids, breathing treatments Possible dc later today PATRICIA BROWNE MD Sep 05, 2018 08:04
[2018-09-05] MEDS: FLUTICASONE 50MCG/NASAL SPRAY 16GM BOTTLE. NS SCH (09:25)
--- NOTE | 2018-09-05 10:45 | CONS ---
DATE OF CONSULTATION: 09/04/2018 ATTENDING PHYSICIAN: Tg Silva M.D. HISTORY OF PRESENT ILLNESS: The patient is an 87-year-old well known to me from previous hospitalization in outpatient department. She has underlying COPD, chronic bronchiectasis, chronic respiratory failure. She is on IVIG augmentation at [facility]. She presented with increasing shortness of breath, cough productive of some discolored sputum. She normally wears 2 liters of oxygen at home. She has multiple bronchodilators including a vibrating vest. She attempted all the above at home even increase in prednisone 20 mg a day, did not improve and was admitted. I was asked to see her in consultation. PAST MEDICAL HISTORY: 1. Chronic respiratory failure. 2. Chronic bronchiectasis. 3. COPD. 4. Immunoglobulin deficiency. She received IVIG augmentation at [facility]. PAST SURGICAL HISTORY: Previous appendectomy, hip replacement and hysterectomy. ALLERGIES: No known drug allergies. CURRENT MEDICATIONS: List was reviewed. SOCIAL HISTORY: Socially, she has never smoked. FAMILY HISTORY: No family history of early lung disorders. REVIEW OF SYSTEMS: As indicated above, otherwise, a 10-point system was reviewed and negative. PHYSICAL EXAMINATION: VITAL SIGNS: Stable. O2 saturation was greater than 92%. HEENT: Eyes, the sclerae were nonicteric. NECK: Jugular venous distention was not elevated. No lymphadenopathy. CHEST: Full expansion. LUNGS: Expiratory wheeze, prolonged expiratory phase, along with bilateral crackles, right greater than left. CARDIOVASCULAR: Regular rate and rhythm with S1 and S2. No S3. ABDOMEN: Soft, nontender and nondistended. EXTREMITIES: No clubbing, cyanosis or pitting edema. NEUROLOGICAL: The patient was awake, alert and following commands. A detailed neuro exam was not performed. LABORATORY DATA: Labs were reviewed. Electrolytes were noted. White count was normal. Hemoglobin and hematocrit were noted. RADIOLOGICAL DATA: Chest x-ray reviewed and no acute cardiopulmonary process. IMPRESSION: 1. Oewsu-ry-ziwpmuh bronchiectasis. 2. Wpeuz-ju-qoxwunb respiratory failure. 3. Acute nonspecific bronchitis. 4. Immunoglobulin deficiency. PLAN: The patient failed outpatient therapy. We increased her prednisone. She was taking Zithromax. She was admitted with increasing shortness of breath. I concur with current medical management and we would add Singulair. Continue nebulized treatments. Continue antibiotics including ceftriaxone. I do appreciate the privilege in sharing in the patient's care. ARELY SINGLETON MD DR: FIDE/miguel ángel JOB#: [id number] / [id number]
[2018-09-05 11:06] VITALS: BP 129/66
--- NOTE | 2018-09-05 13:36 | PDOC ---
PULMONARY PROGRESS NOTES Subjective feels better Vitals Vital Signs Date Time Temp Pulse Resp B/P (MAP) Pulse Ox O2 Delivery O2 Flow Rate FiO2 09/05/18 11:07 98 Nasal Cannula 3.0 09/05/18 11:06 97.7 78 20 129/66 (87) 97.7 General: Alert, Oriented X4, No acute distress HEENT: Other Lungs: Crackles (bases) Cardiovascular: S1, S2 Abdomen: Soft, Non-tender Neuro Exam: Alert Extremities: No Edema Labs Laboratory Tests Test 09/03/18 19:45 09/03/18 19:48 09/03/18 20:05 09/03/18 21:12 White Blood Count 6.2 x10^3/uL (4.0-11.0) Red Blood Count 3.73 x10^6/uL (3.50-5.40) Hemoglobin 11.8 g/dL (12.0-15.5) Hematocrit 36.0 % (36.0-47.0) Mean Corpuscular Volume 97 fL (79-100) Mean Corpuscular Hemoglobin 32 pg (25-35) Mean Corpuscular Hemoglobin Concent 33 g/dL (31-37) Red Cell Distribution Width 14.7 % (11.5-14.5) Platelet Count 209 x10^3/uL (140-400) Neutrophils (%) (Auto) 63 % (31-73) Lymphocytes (%) (Auto) 28 % (24-48) Monocytes (%) (Auto) 7 % (0-9) Eosinophils (%) (Auto) 1 % (0-3) Basophils (%) (Auto) 1 % (0-3) Neutrophils # (Auto) 3.9 x10^3uL (1.8-7.7) Lymphocytes # (Auto) 1.7 x10^3/uL (1.0-4.8) Monocytes # (Auto) 0.5 x10^3/uL (0.0-1.1) Eosinophils # (Auto) 0.1 x10^3/uL (0.0-0.7) Basophils # (Auto) 0.0 x10^3/uL (0.0-0.2) Sodium Level 140 mmol/L (136-145) Potassium Level 4.1 mmol/L (3.5-5.1) Chloride Level 100 mmol/L (98-107) Carbon Dioxide Level 35 mmol/L (21-32) Anion Gap 5 (6-14) Blood Urea Nitrogen 27 mg/dL (7-20) Creatinine 1.3 mg/dL (0.6-1.0) Estimated GFR (Cockcroft-Gault) 38.9 BUN/Creatinine Ratio 21 (6-20) Glucose Level 100 mg/dL (70-99) Calcium Level 8.9 mg/dL (8.5-10.1) Magnesium Level 2.4 mg/dL (1.8-2.4) Total Bilirubin 0.3 mg/dL (0.2-1.0) Aspartate Amino Transf (AST/SGOT) 15 U/L (15-37) Alanine Aminotransferase (ALT/SGPT) 22 U/L (14-59) Alkaline Phosphatase 54 U/L (46-116) Troponin I Quantitative 0.024 ng/mL (0.000-0.055) RW-Kdx-F-Type Natriuretic Peptide 602 pg/mL (0-449) Total Protein 7.0 g/dL (6.4-8.2) Albumin 3.5 g/dL (3.4-5.0) Albumin/Globulin Ratio 1.0 (1.0-1.7) Influenza Type A Antigen Negative (NEGATIVE) Influenza Type B Antigen Negative (NEGATIVE) Urine Collection Type Unknown Urine Color Yellow Urine Clarity Clear Urine pH 6.5 Urine Specific [place] <=1.005 Urine Protein Negative mg/dL (NEG-TRACE) Urine Glucose (UA) Negative mg/dL (NEG) Urine Ketones (Stick) Negative mg/dL (NEG) Urine Blood Trace (NEG) Urine Nitrite Negative (NEG) Urine Bilirubin Negative (NEG) Urine Urobilinogen Dipstick 0.2 mg/dL (0.2 mg/dL) Urine Leukocyte Esterase Trace (NEG) Urine RBC Occ /HPF (0-2) Urine WBC 0 /HPF (0-4) Urine Squamous Epithelial Cells Few /LPF Urine Bacteria 0 /HPF (0-FEW) Lactic Acid Level 1.0 mmol/L (0.4-2.0) Test 09/04/18 03:50 White Blood Count 5.3 x10^3/uL (4.0-11.0) Red Blood Count 3.73 x10^6/uL (3.50-5.40) Hemoglobin 11.8 g/dL (12.0-15.5) Hematocrit 36.1 % (36.0-47.0) Mean Corpuscular Volume 97 fL (79-100) Mean Corpuscular Hemoglobin 32 pg (25-35) Mean Corpuscular Hemoglobin Concent 33 g/dL (31-37) Red Cell Distribution Width 14.7 % (11.5-14.5) Platelet Count 207 x10^3/uL (140-400) Neutrophils (%) (Auto) 90 % (31-73) Lymphocytes (%) (Auto) 9 % (24-48) Monocytes (%) (Auto) 1 % (0-9) Eosinophils (%) (Auto) 0 % (0-3) Basophils (%) (Auto) 0 % (0-3) Neutrophils # (Auto) 4.7 x10^3uL (1.8-7.7) Lymphocytes # (Auto) 0.4 x10^3/uL (1.0-4.8) Monocytes # (Auto) 0.1 x10^3/uL (0.0-1.1) Eosinophils # (Auto) 0.0 x10^3/uL (0.0-0.7) Basophils # (Auto) 0.0 x10^3/uL (0.0-0.2) Segmented Neutrophils % 88 % (35-66) Lymphocytes % 9 % (24-48) Monocytes % 3 % (0-10) Platelet Estimate Adequate (ADEQUATE) Large Platelets Occ Sodium Level 141 mmol/L (136-145) Potassium Level 4.3 mmol/L (3.5-5.1) Chloride Level 101 mmol/L (98-107) Carbon Dioxide Level 33 mmol/L (21-32) Anion Gap 7 (6-14) Blood Urea Nitrogen 21 mg/dL (7-20) Creatinine 1.0 mg/dL (0.6-1.0) Estimated GFR (Cockcroft-Gault) 52.7 Glucose Level 151 mg/dL (70-99) Calcium Level 8.6 mg/dL (8.5-10.1) Troponin I Quantitative 0.022 ng/mL (0.000-0.055) Medications Active Scripts Medications Dose Route/Sig Max Daily Dose Days Date Category Maxzide 37.5 Mg-25 Mg Tablet (Triamterene/Hydrochlorothiazid) 1 Each Tablet 1 Each PO QMWF 09/04/18 Reported Polyethylene Glycol 3350 17 Gm Powd.pack 17 Gm PO PRN DAILY PRN 30 10/17/17 Rx Montelukast Sodium Tablet (Montelukast Sodium) 10 Mg Tablet 10 Mg PO QHS 30 10/17/17 Rx Calcium + Vitamin D Tablet (Calcium Carbonate/Vitamin D3) 1 Each Tablet 500 Mg PO BID 10/14/17 Reported Acetaminophen 500 Mg Tablet 1 Tab PO BID PRN 10/14/17 Reported Multivitamins (Multivitamin) 1 Each Tablet 1 Tab PO DAILY 10/14/17 Reported Flonase Allergy Relief (Fluticasone Propionate) 9.9 Ml [place].susp 2 Sprays NS DAILY 10/14/17 Reported Fosamax (Alendronate Sodium) 70 Mg Tablet 1 Tab PO WEEKLY 10/14/17 Reported Albuterol Sulfate Neb Soln (Albuterol Sulfate) 0.63 Mg/3 Ml Vial.neb 1 Vial NEB QID 03/01/14 Reported Spiriva (Tiotropium [place]) 18 Mcg Cap.w.dev 1 Cap IH DAILY 03/01/14 Reported Impression . 1. Ekrci-ct-zxplqlv bronchiectasis. 2. Wfbua-zl-ptitcrr respiratory failure. 3. Acute nonspecific bronchitis. 4. Immunoglobulin deficiency. Plan . 1.The patient failed outpatient therapy. 2. Continue present IV Abx 3. nebulized treatments. 4. Wean off oxygen 5. Possible dc home on PO abx LEON BURGOS MD Sep 05, 2018 13:36
--- NOTE | 2018-09-05 14:43 | NUR ---
SW following pt for anticipated dc needs. Chart reviewed and discussed with RN. Pt lives at home with spouse. Pt is independent with ADL's. RN reported pt also have home 02. No SW needs noted at this time. Will continue to assess needs.
[2018-09-05 15:06] VITALS: BP 134/68
[2018-09-05 19:05] VITALS: BP 133/73
[2018-09-05] MEDS: MONTELUKAST SODIUM 10 MG TABLET. PO SCH (21:21)
[2018-09-05] MEDS: cefTRIAXone IV Push 1 GM VIAL. IVP SCH (21:21)
[2018-09-05] MEDS: AZITHROMYCIN 250 MG in IV NORMAL SALINE 250ML 250 ML IV SCH (21:22)
[2018-09-05 23:05] VITALS: BP 125/68
[2018-09-06 03:05] VITALS: BP 117/64
[2018-09-06] MEDS: methylPREDNISolone SOD SUCC PF 125 MG/2 ML VIAL. IV SCH (06:36)
[2018-09-06 06:50] VITALS: BP 137/79
[2018-09-06] MEDS: IPRATRPIUM/ALBUTEROL 0.5/2.5MG 3 ML NEBU. NEB SCH (07:43)
[2018-09-06] MEDS ORDERED: CEFP200T PO (08:05)
[2018-09-06] MEDS ORDERED: PRED20TA PO (08:05)
--- NOTE | 2018-09-06 08:18 | PDOC3 ---
Discharge Summary Date of Admission: Sep 04, 2018 Date of Discharge: Sep 06, 2018 Follow-Up: Other (1 week with myself or Dr. Toure) Admitting Diagnosis comment: Acute exacerbation of bronchiectasis Acute on chronic hypoxic respiratory failure FINAL DIAGNOSIS Same Brief Hospital Course Mrs. Crocker is an 87-year-old female with PMH of chronic hypoxic respiratory failure 2/2 bronchiectasis, s/p partial left lung resection, HTN, osteoporosis, who presented to the Emergency Room complaining of increasing shortness of breath for 4 days prior to admission with some increased O2 requirement from baseline. She takes azithromycin daily on a prophylactic basis and receives IVIG infusions from . She started prednisone 20mg daily at home 3 days prior to admission and failed outpatient treatment. Her labs and CXR are fairly unremarkable. She was treated with IV Solu-Medrol, ceftriaxone, azithromycin. Pulmonology saw her in consultation. She continued to have improvement of her symptoms and she felt stable to be discharged home today to continue prednisone taper over the next 12 days and Cefpodoxime 2 mg twice a day for the next 7 days. She does have a sputum culture that is still pending but shows some gram- negative rods. Will follow that culture and change therapy if necessary. All other home medications are unchanged. Discharge Medications Active Scripts Active Polyethylene Glycol 3350 17 Gm Powd.pack 17 Gm PO PRN DAILY PRN 30 Days Montelukast Sodium Tablet (Montelukast Sodium) 10 Mg Tablet 10 Mg PO QHS 30 Days Reported Maxzide 37.5 Mg-25 Mg Tablet (Triamterene/Hydrochlorothiazid) 1 Each Tablet 1 Each PO QMWF Calcium + Vitamin D Tablet (Calcium Carbonate/Vitamin D3) 1 Each Tablet 500 Mg PO BID Acetaminophen 500 Mg Tablet 1 Tab PO BID PRN Multivitamins (Multivitamin) 1 Each Tablet 1 Tab PO DAILY Flonase Allergy Relief (Fluticasone Propionate) 9.9 Ml [place].susp 2 Sprays NS DAILY Fosamax (Alendronate Sodium) 70 Mg Tablet 1 Tab PO WEEKLY Albuterol Sulfate Neb Soln (Albuterol Sulfate) 0.63 Mg/3 Ml Vial.neb 1 Vial NEB QID Spiriva (Tiotropium [place]) 18 Mcg Cap.w.dev 1 Cap IH DAILY Vital Signs Vital Signs Date Time Temp Pulse Resp B/P (MAP) Pulse Ox O2 Delivery O2 Flow Rate FiO2 09/06/18 07:43 99 Nasal Cannula 3.0 09/06/18 06:50 97.9 75 20 137/79 (98) 97.9 Allergies Allergies Coded Allergies Type Severity Reaction Last Updated Verified No Known Drug Allergies 07/05/18 No Disposition/Orders: D/C to Home PATRICIA BROWNE MD Sep 06, 2018 08:18
[2018-09-06] MEDS: FLUTICASONE 50MCG/NASAL SPRAY 16GM BOTTLE. NS SCH (08:37)
--- NOTE | 2018-09-06 09:45 | PDOC ---
PULMONARY PROGRESS NOTES Subjective feels better Vitals Vital Signs Date Time Temp Pulse Resp B/P (MAP) Pulse Ox O2 Delivery O2 Flow Rate FiO2 09/06/18 07:43 99 Nasal Cannula 3.0 09/06/18 06:50 97.9 75 20 137/79 (98) 97.9 General: Alert, Oriented X4, No acute distress HEENT: Other Lungs: Crackles (bases) Cardiovascular: S1, S2 Abdomen: Soft, Non-tender Neuro Exam: Alert Extremities: No Edema Medications Active Scripts Medications Dose Route/Sig Max Daily Dose Days Date Category Maxzide 37.5 Mg-25 Mg Tablet (Triamterene/Hydrochlorothiazid) 1 Each Tablet 1 Each PO QMWF 09/04/18 Reported Polyethylene Glycol 3350 17 Gm Powd.pack 17 Gm PO PRN DAILY PRN 30 10/17/17 Rx Montelukast Sodium Tablet (Montelukast Sodium) 10 Mg Tablet 10 Mg PO QHS 30 10/17/17 Rx Calcium + Vitamin D Tablet (Calcium Carbonate/Vitamin D3) 1 Each Tablet 500 Mg PO BID 10/14/17 Reported Acetaminophen 500 Mg Tablet 1 Tab PO BID PRN 10/14/17 Reported Multivitamins (Multivitamin) 1 Each Tablet 1 Tab PO DAILY 10/14/17 Reported Flonase Allergy Relief (Fluticasone Propionate) 9.9 Ml [place].susp 2 Sprays NS DAILY 10/14/17 Reported Fosamax (Alendronate Sodium) 70 Mg Tablet 1 Tab PO WEEKLY 10/14/17 Reported Albuterol Sulfate Neb Soln (Albuterol Sulfate) 0.63 Mg/3 Ml Vial.neb 1 Vial NEB QID 03/01/14 Reported Spiriva (Tiotropium [place]) 18 Mcg Cap.w.dev 1 Cap IH DAILY 03/01/14 Reported Impression . 1. Amcwn-pt-pkeilfu bronchiectasis. 2. Fjvsi-ug-[id number] respiratory failure. 3. Acute nonspecific bronchitis. 4. Immunoglobulin deficiency. Plan . 1.The patient failed outpatient therapy. 2. changed to PO abx 3. nebulized treatments. 4. Wean off oxygen 5. dc home on PO abx LEON BURGOS MD Sep 06, 2018 09:45
--- NOTE | 2018-09-06 10:25 | NUR ---
Pt discharged to home with self care via wheelchair, accompanied by son. All belongings with patient and family at time of discharge. Reviewed discharge instructions, medications, and follow up with patient. Pt verbalized understanding. Dr. Silva called in prescriptions to patient preferred pharmacy. Pt verbalized that she has her home oxygen therapy set up and does not need any additional equipment from the hospital.
[2018-09-06 10:30] VITALS: BP 151/80
== END 2018-09-06 10:25 | disposition home or self-care (01) | DRG 189 ==
LOC: ER 18:46 → 6 SOUTH 20:40
PROVIDERS: ADMIT Family Medicine; ATTEND Family Medicine
DX: J96.21 Acute and chronic respiratory failure with hypoxia (principal); J47.1 Bronchiectasis with (acute) exacerbation; J20.9 Acute bronchitis, unspecified; I10 Essential (primary) hypertension; M81.0 Age-related osteoporosis without current pathological fracture; Z96.659 Presence of unspecified artificial knee joint; Z96.649 Presence of unspecified artificial hip joint; Z90.710 Acquired absence of both cervix and uterus; Z90.49 Acquired absence of other specified parts of digestive tract; Z99.81 Dependence on supplemental oxygen; Z87.11 Personal history of peptic ulcer disease
CPT/HCPCS: 36415; 71046; 80048; 80053; 81001; 83605; 83735; 83880; 84484; 85007; 85025; 87040; 87070; 87086; 87186; 87205; 87804; 93005; 94640; 94760; 96365; 96375; J0456; J0696; J2930; J7050; J7512; J7620; 99285-25; J7030

== ENCOUNTER 2018-09-08 05:28 | Inpatient (IN) | payer BC ==
[~2018-09-08] VITALS: Ht 167.6 cm; Wt 74.9 kg
[~2018-09-08 05:28] MED LIST changes: +CEFP200T PO; +PRED20TA PO
--- NOTE | 2018-09-08 05:58 | PHYS DOC ---
Past Medical History Past Medical History: COPD, Hypertension, Lung Disease, Pneumonia, Other Additional Past Medical Histor: STOMACH ULCERS,BRONCHIECTASIS, Osteoporosis (TAYLER ALVAREZ DO) Past Surgical History: Appendectomy, Hip Replacement, Hysterectomy, Knee Replacement, Tonsillectomy, Other Additional Past Surgical Histo: Partial L LOBECTOMY,BLADDER,CATARACT,RECTOCELE , RT KNEE, Bilateral Hip (TAYLER ALVAREZ DO) Alcohol Use: None Drug Use: None (TAYLER ALVAREZ DO) Adult General Chief Complaint Chief Complaint: DYSPNEA/RESPIRATOY DISTRESS HPI HPI 87-year-old female presents with 6 day history of progressive dyspnea. Patient recently seen and admitted to the hospital on Tuesday. Reports was recently discharged on Tuesday. Reports findings consistent for bronchitis. Patient reports since discharge home patient has had progressive dyspnea. Reports productive cough. Denies fever or chills. Reports some increased edema to bilateral external extremities. Denies fever or chills. Denies known trauma. Patient does report waking this morning and requiring use of a DuoNeb nebulizer treatment at 0300. (TAYLER ALVAREZ DO) Review of Systems Review of Systems Constitutional: Denies fever or chills [] Eyes: Denies change in visual acuity, redness, or eye pain [] HENT: Reports some nasal congestion; denies sore throat [] Respiratory: Reports shortness of breath and wheezing [] Cardiovascular: Denies chest pain, denies trauma GI: Denies abdominal pain, nausea, vomiting, or diarrhea [] : Denies dysuria or hematuria [] Musculoskeletal: Denies back pain or joint pain; reports some BLE edema Integument: Denies rash or skin lesions [] Neurologic: Denies headache, focal weakness or sensory changes [] Complete systems were reviewed and found to be within normal limits, except as documented in this note. (TAYLER ALVAREZ DO) Current Medications Current Medications Current Medications Medications (Trade) Dose Ordered Sig/Sudhakar Start Time Stop Time Status Last Admin Dose Admin Albuterol/ Ipratropium (Duoneb) 3 ml 1X ONCE 09/08/18 06:00 09/08/18 06:01 DC 09/08/18 06:30 3 ML Oseltamivir Phosphate (Tamiflu) 75 mg 1X ONCE 09/08/18 06:30 09/08/18 06:31 DC 09/08/18 06:43 75 MG (LORENZO ADAM MD) Allergies Allergies Allergies Coded Allergies Type Severity Reaction Last Updated Verified No Known Drug Allergies 07/05/18 No (LORENZO ADAM MD) Physical Exam Physical Exam Constitutional: Well developed, well nourished, no acute distress, non-toxic appearance. [] HENT: Normocephalic, atraumatic, oropharynx moist Neck: Normal range of motion, no tenderness, supple Cardiovascular: Heart rate regular rhythm, no murmur [] Lungs & Thorax: Diminished breath sounds at bases, coarseness appreciated. Abdomen: Soft, no tenderness Skin: Warm, dry, no erythema Back: No tenderness, no CVA tenderness. [] Extremities: No tenderness,ROM intact, 1+ pitting edema to BLE. [] Neurologic: Alert and oriented X 3, normal motor function, normal sensory function, no focal deficits noted. [] Psychologic: Affect normal, judgement normal, mood normal. [] (TAYLER ALVAREZ DO) Current Patient Data Vital Signs Vital Signs Date Time Temp Pulse Resp B/P (MAP) Pulse Ox O2 Delivery O2 Flow Rate FiO2 09/08/18 06:57 82 158/74 (102) 98 Nasal Cannula 2.0 09/08/18 05:28 97.8 22 97.8 (LORENZO ADAM MD) Lab Values Laboratory Tests Test 09/08/18 05:42 09/08/18 05:55 White Blood Count 7.7 x10^3/uL (4.0-11.0) Red Blood Count 3.83 x10^6/uL (3.50-5.40) Hemoglobin 12.2 g/dL (12.0-15.5) Hematocrit 37.0 % (36.0-47.0) Mean Corpuscular Volume 96 fL (79-100) Mean Corpuscular Hemoglobin 32 pg (25-35) Mean Corpuscular Hemoglobin Concent 33 g/dL (31-37) Red Cell Distribution Width 14.6 % (11.5-14.5) H Platelet Count 191 x10^3/uL (140-400) Neutrophils (%) (Auto) 79 % (31-73) H Lymphocytes (%) (Auto) 12 % (24-48) L Monocytes (%) (Auto) 9 % (0-9) Eosinophils (%) (Auto) 0 % (0-3) Basophils (%) (Auto) 0 % (0-3) Neutrophils # (Auto) 6.1 x10^3uL (1.8-7.7) Lymphocytes # (Auto) 0.9 x10^3/uL (1.0-4.8) L Monocytes # (Auto) 0.7 x10^3/uL (0.0-1.1) Eosinophils # (Auto) 0.0 x10^3/uL (0.0-0.7) Basophils # (Auto) 0.0 x10^3/uL (0.0-0.2) Sodium Level 141 mmol/L (136-145) Potassium Level 4.1 mmol/L (3.5-5.1) Chloride Level 100 mmol/L (98-107) Carbon Dioxide Level 37 mmol/L (21-32) H Anion Gap 4 (6-14) L Blood Urea Nitrogen 21 mg/dL (7-20) H Creatinine 0.6 mg/dL (0.6-1.0) Estimated GFR (Cockcroft-Gault) 95.0 BUN/Creatinine Ratio 35 (6-20) H Glucose Level 120 mg/dL (70-99) H Lactic Acid Level 1.0 mmol/L (0.4-2.0) Calcium Level 8.6 mg/dL (8.5-10.1) Magnesium Level 2.7 mg/dL (1.8-2.4) H Total Bilirubin 0.4 mg/dL (0.2-1.0) Aspartate Amino Transferase (AST) 22 U/L (15-37) Alanine Aminotransferase (ALT) 42 U/L (14-59) Alkaline Phosphatase 52 U/L (46-116) Creatine Kinase 69 U/L (26-192) Creatine Kinase MB (Mass) 1.6 ng/mL (0.0-3.6) Creatine Kinase MB Relative Index % (0-4) Troponin I Quantitative 0.025 ng/mL (0.000-0.055) UF-Hxi-U-Type Natriuretic Peptide 1276 pg/mL (0-449) H Total Protein 6.4 g/dL (6.4-8.2) Albumin 3.5 g/dL (3.4-5.0) Albumin/Globulin Ratio 1.2 (1.0-1.7) Influenza Type A Antigen Positive (NEGATIVE) Influenza Type B Antigen Negative (NEGATIVE) Laboratory Tests 09/08/18 05:42 Laboratory Tests 09/08/18 05:42 (LORENZO ADAM MD) EKG EKG @0537 NSR at 90bpm, wandering baseline, occasional PVC, NO ST elevation (TAYLER ALVAREZ DO) Radiology/Procedures Radiology/Procedures [] (TAYLER ALVAREZ DO) Course & Med Decision Making Course & Med Decision Making Patient presents with reports of 6 day history of dyspnea with slight productive cough. Reports progressive in nature. Recently admitted Tuesday and discharged home on Tuesday. Patient reports she was diagnosed with "congestion" and bronchitis. Patient with some decreased breath sounds at bases and some coarseness noted. Patient requiring supplemental O2. Labs obtained and pending. EKG stable. CXR pending. Sign out given to Dr. Adam for further evaluation and final disposition. Discussed current findings and plan with patient and family, who acknowledge understanding and agreement. (TAYLER ALVAREZ DO) Course & Med Decision Making 630 AM FLU POSITIVE STILL WHEEZING AND COARSE. I D/W HOLLIE WHO ADMITTED HER TO HOSPITAL SHE CAME TO ER AND SAW THE PAT. I ORDERED TAMIFLU. LABS LOOK OK BNP ALWAYS ELEVATED. (LORENZO ADAM MD) Dragon Disclaimer Dragon Disclaimer This electronic medical record was generated, in whole or in part, using a voice recognition dictation system. (TAYLER ALVAREZ DO) Departure Departure Impression: Primary Impression: Dyspnea Additional Impression: Influenza Disposition: ADMITTED INPATIENT Admitting Physician: Tg Silva (LORENZO ADAM MD) Condition: STABLE Referrals: MICK HOUGH MD (PCP) Problem Qualifiers Primary Impression: Dyspnea Dyspnea type: unspecified Qualified Codes: R06.00 - Dyspnea, unspecified TAYLER ALVAREZ DO Sep 08, 2018 05:58 LORENZO ADAM MD Sep 08, 2018 08:54
[2018-09-08] MEDS ORDERED: IPRATRPIUM/ALBUTEROL 0.5/2.5MG 3 ML NEBU. NEB ONE (06:00)
[2018-09-08 06:11] LABS: BASO % 0 % (0-3); EOS % 0 % (0-3); HEMOGLOBIN 12.2 g/dL (12.0-15.5); LYMPH # 0.9 x10^3/uL (1.0-4.8); LYMPH % 12 % (24-48); MEAN CORPUSCULAR HEMOGLOBIN 32 pg (25-35); MEAN CORPUSCULAR HGB CONC 33 g/dL (31-37); MEAN CORPUSCULAR VOLUME 96 fL (79-100); MONO # 0.7 x10^3/uL (0.0-1.1); MONO % 9 % (0-9); NEUT # 6.1 x10^3uL (1.8-7.7); NEUT % 79 % (31-73); PLATELET COUNT 191 x10^3/uL (140-400); RED BLOOD COUNT 3.83 x10^6/uL (3.50-5.40); RED CELL DISTRIBUTION WIDTH 14.6 % (11.5-14.5); WHITE BLOOD COUNT 7.7 x10^3/uL (4.0-11.0)
[2018-09-08 06:14] LABS: CALCIUM 8.6 mg/dL (8.5-10.1); CREATININE 0.6 mg/dL (0.6-1.0); POTASSIUM 4.1 mmol/L (3.5-5.1)
[2018-09-08 06:20] LABS: ALBUMIN 3.5 g/dL (3.4-5.0); ALBUMIN/GLOBULIN RATIO 1.2 (1.0-1.7); MAGNESIUM 2.7 mg/dL (1.8-2.4); TOTAL BILIRUBIN 0.4 mg/dL (0.2-1.0); TOTAL PROTEIN 6.4 g/dL (6.4-8.2)
[2018-09-08 06:23] LABS: INFLUENZA A PATIENT POSITIVE (NEGATIVE); INFLUENZA B PATIENT NEGATIVE (NEGATIVE)
[2018-09-08] MEDS ORDERED: OSELTAMIVIR 75 MG CAPSULE PO ONE (06:30)
[2018-09-08 06:37] LABS: CREATINE KINASE 69 U/L (26-192)
--- NOTE | 2018-09-08 07:01 | RAD ---
CHEST PA LATERAL Technique: PA and lateral views of the chest were obtained. Clinical History: DYSPNEA Comparison: September 03, 2018. Findings: The heart is moderately enlarged. The pulmonary vessels appear top normal limits in size. There is patchy opacities in the lower lungs and density in the left costophrenic angle. Impression: Mild left effusion and basal infiltrates and cardiomegaly. No change. Electronically signed by: Kostas Giraldo III, MD (09/08/2018 6:58 AM) [facility]
[2018-09-08] MEDS ORDERED: IPRATRPIUM/ALBUTEROL 0.5/2.5MG 3 ML NEBU. NEB SCH (08:00)
--- NOTE | 2018-09-08 08:26 | EKG ---
[facility] [address] [place] [address] Test Date: 2018-09-08 Test Time: 05:37:10 Pat Name: GISELLE KEITH Department: Room: 656 1 Gender: F Transportation Associate: : 1930 Requested By: TAYLER ALVAREZ Order Number: [id number] Reading MD: Jd Ortega MD Measurements Intervals [place] Rate: 89 P: 90 TX: 132 QRS: -25 QRSD: 128 T: 62 QT: 354 QTc: 437 Interpretive Statements SINUS RHYTHM VENTRICULAR PREMATURE COMPLEX(ES) ATRIAL PREMATURE COMPLEX(ES) LAD Electronically Signed On 09-12-2018 14:54:36 CDT by Jd Ortega MD
--- NOTE | 2018-09-08 08:29 | PDOC1 ---
H & P H&P HPI: Mrs. Crocker is an 87-year-old female with PMH of chronic hypoxic respiratory failure 2/2 bronchiectasis, s/p partial left lung resection, HTN, osteoporosis, who presented to the Emergency Room complaining of increasing shortness of breath since yesterday. She was admitted 09/04 and discharged 09/06 for bronchiectasis exacerbation after improvement. She was discharge with a slow prednisone taper and cefpodoxime. She then noted increase SOB yesterday and presented to the ED overnight. She tested positive for influenza A. She continues to have productive cough and her sputum culture from her previous admission just resulted with Pseudomonas, however since it is not back yet. Labs are otherwise generally unremarkable. Chest x-ray not significantly changed from most recently. PAST MEDICAL HISTORY: As above PAST SURGICAL HISTORY: Remarkable for an appendectomy, hip replacement, hysterectomy, knee replacement, tonsillectomy, shoulder surgery, left lobectomy, bladder surgery, cataract surgery, rectocele repair. MEDICATIONS: Reviewed and reconciled. ALLERGIES: She has no known drug allergies. SOCIAL HISTORY: , never smoker, no significant alcohol use. FAMILY HISTORY: Noncontributory. REVIEW OF SYSTEMS: As mentioned above. PHYSICAL EXAMINATION: GENERAL: She is a well-developed, well-nourished white female, in no acute distress. HEENT: EOMI, PERRLA. NECK: Supple. CHEST: Coarse rhonchi and wheezes throughout without appreciation of focal crackles. No increased work of breathing at this time. HEART: Regular rate and rhythm without murmur EXTREMITIES: No edema. NEUROLOGIC: Nonfocal, alert, oriented Assessment/Plan: Acute on chronic hypoxic respiratory failure 2/2 bronchiectasis exacerbation Influenza A Pseudomonas on sputum culture Chronic conditions as above Pulm consulted Zosyn pending sensitivities, steroids, breathing treatments Continue home medications Supportive care PATRICIA BROWNE MD Sep 08, 2018 08:29
[2018-09-08] MEDS ORDERED: ALBUTEROL SULFATE 2.5 MG/3 ML NEBU. NEB PRN (08:30)
[2018-09-08] MEDS ORDERED: methylPREDNISolone SOD SUCC PF 125 MG/2 ML VIAL. IV ONE (08:30)
[2018-09-08] MEDS ORDERED: ACETAMINOPHEN 500 MG TABLET PO PRN (08:45)
[2018-09-08 09:00] VITALS: BP 130/70
[2018-09-08] MEDS: PIPERACILLIN/TAZOBACTAM 3.375 GM in IV NORMAL SALINE 50ML 50 ML IV SCH ×3 (09:16→18:53)
[2018-09-08] MEDS: CALCIUM CARB/VIT D3 500/200 TABLET. PO SCH ×2 (09:16→18:53)
[2018-09-08] MEDS: MULTIVITAMIN with MINERAL TABLET. PO SCH (09:16)
[2018-09-08] MEDS: FLUTICASONE 50MCG/NASAL SPRAY 16GM BOTTLE. NS SCH (09:16)
--- NOTE | 2018-09-08 09:20 | NUR ---
IP: Pt is influenza + requiring droplet precautions for 5 days and 24 hours without a fever, whichever is longest.
--- NOTE | 2018-09-08 10:13 | NUR ---
SW following pt for anticipated dc needs. Chart reviewed and discussed with RN. Pt lives at home with spouse. Pt is independent with ADL's and also have home 02. No SW needs noted at this time. Will continue to assess needs.
[2018-09-08 11:00] VITALS: BP 134/65
--- NOTE | 2018-09-08 11:48 | CONS ---
DATE OF CONSULTATION: 09/08/2018 ATTENDING PHYSICIAN: Tg Silva MD. REASON FOR CONSULTATION: Influenza, bronchiectasis and dyspnea. HISTORY OF PRESENT ILLNESS: The patient is an 87-year-old female who has history of chronic hypoxic respiratory failure. She has history of bronchiectasis, status post partial left lung resection in the past. She was recently hospitalized for acute flare of bronchiectasis. She was treated with empiric antibiotics. She was subsequently discharged. She was brought into the hospital with increasing dyspnea, increasing oxygen requirements. She was having cough with some productive sputum and had subjective fever as well. The patient was seen in the Emergency Room where she was tested positive for influenza A. Her chest x-ray was also reviewed. It shows mild left effusion and volume loss along with basal infiltrates. She started to have wheezing as well. I have been asked to see her for further evaluation. She denies any headaches, no nausea or vomiting, no diarrhea. No focal weakness. No skin rash. PAST MEDICAL HISTORY: Significant for bronchiectasis, history of chronic hypoxic respiratory failure. PAST SURGICAL HISTORY: Appendectomy, hip replacement, hysterectomy, history of knee replacement, tonsillectomy, shoulder surgery, left lobectomy, bladder surgery, cataract surgery and rectocele repair. MEDICATIONS: Reviewed as listed in the MRAD including oral prednisone, Tamiflu and Zosyn. REVIEW OF SYSTEMS: Twelve-point system obtained. Pertinent positives discussed in my history of present illness, otherwise noncontributory. All systems that were negative were reviewed as well. SOCIAL HISTORY: She is a nonsmoker. FAMILY HISTORY: Noncontributory to lungs. PHYSICAL EXAMINATION: VITAL SIGNS: Reviewed. Blood pressure stable, pulse ox 98% on 2 liters. NECK: Supple. LUNGS: With coarse rhonchi and bilateral expiratory wheezes. CARDIOVASCULAR: Regular rate. ABDOMEN: Soft, nontender. EXTREMITIES: With no pitting edema. LABORATORY DATA: Reviewed. Influenza A is positive. Her chemistries with a BUN of 21, creatinine 0.6. ProBNP 1276. Sputum from previous admission had Pseudomonas, sensitivities pending. White cell count 7.7, hemoglobin 12.2 and platelets are 191. IMPRESSION: 1. Dyspnea with acute on chronic hypoxic respiratory failure secondary to multifactorial etiologies including influenza A, acute exacerbation of Bronchiectasis and recently isolated Pseudomonas from the sputum resulting in superimposed bacterial pneumonia. 2. The patient with chronic bronchiectasis and chronic hypoxic respiratory failure, now has a flare up of her bronchiectasis. 3. No significant history of tobacco use. 4. Bilateral bronchospasm, likely related to respiratory tract infection. She is a lifetime nonsmoker. 5. Immunoglobulin deficiency. RECOMMENDATIONS: 1. Continue with present Zosyn for Pseudomonas lower respiratory tract infection. Follow the sensitivities. 2. Continue with Tamiflu. 3. Oral prednisone until bronchospasm improves. 4. DuoNeb. Increase the frequency to every 4 hours. 5. Add Pulmicort. 6. Noncontrast CT chest for further evaluation. 7. We will follow the response to treatment. 8. Out patient immunoglobulin injections 9. Discussed with Dr. Silva. LEON BURGOS MD DR: МАРИНА/nts JOB#: [id number] / [id number] MARY
--- NOTE | 2018-09-08 11:48 | RAD ---
CT CHEST WO CONTRAST Indication: BRONCHIECTESIS PREV SENT Exposure: One or more of the following individualized dose reduction techniques were utilized for this examination: 1. Automated exposure control 2. Adjustment of the mA and/or kV according to patient size 3. Use of iterative reconstruction technique. Technique: Standard imaging without intravenous contrast. Comparison: October 14, 2017. The heart size is enlarged. Small pericardial effusion. Mild aortic calcifications without gross aneurysm. Ascending aorta measures 3.8 cm, unchanged since prior study. Thyroid gland is unchanged without dominant mass. No significant lymph node enlargement. GI fascinating case oh. The visualized by low. There is somewhat Electronically signed by: Hugh Patel MD (09/08/2018 11:45 AM) [facility] [place]
[2018-09-08] MEDS: IPRATRPIUM/ALBUTEROL 0.5/2.5MG 3 ML NEBU. NEB SCH ×3 (12:45→21:23)
[2018-09-08] MEDS ORDERED: C.DIFF MED SCREEN BY RX. MC ONE (14:00)
[2018-09-08 15:00] VITALS: BP 106/67
--- NOTE | 2018-09-08 18:48 | NUR ---
Pharmacy Medication Review S: Consulted for medication review re: C.diff Risk Assessment score of 5 O: ULISESRIDDHIGISELLE is a 87 year old with: Previous C.diff infection: No Previous hospitalization: Within 30 days Recent antibiotics: Within 30 days Use of gastric acid suppressor: No Transfer from SD/LTAC: No Current antibiotic regimen: Zosyn Current acid suppression regimen: none A: Patient has been identified as having risk factors for C.diff infection as noted above. P: ABX DE-ESCALATION RECOMMENDED: PT CURRENTLY REQUIRES BROAD SPECTRUM ABX FOR SUSPECTED INFECTION PROBIOTIC ORDERED: YES PPI CHANGED TO [id number]: NOT ON PPI SARA RIVERA RPH, 09/08/18 1848 Addendum: 09/08/18 at 1850 by SARA RIVERA RPH PHA dc'ed lactobacillus due to immunoglobulin deficiency
[2018-09-08 19:59] VITALS: BP 105/56
[2018-09-08] MEDS: MONTELUKAST SODIUM 10 MG TABLET. PO SCH (20:02)
[2018-09-08] MEDS: OSELTAMIVIR 30 MG CAPSULE PO SCH (20:02)
[2018-09-08] MEDS ORDERED: LACTOBACILLUS RHAMNOSUS GG 1 CAPSULE. PO SCH (21:00)
[2018-09-08 23:39] VITALS: BP 107/59
[2018-09-09] MEDS: PIPERACILLIN/TAZOBACTAM 3.375 GM in IV NORMAL SALINE 50ML 50 ML IV SCH ×4 (00:48→17:57)
[2018-09-09 03:59] VITALS: BP 115/70
[2018-09-09] MEDS: IPRATRPIUM/ALBUTEROL 0.5/2.5MG 3 ML NEBU. NEB SCH ×5 (05:08→20:59)
[2018-09-09 07:20] VITALS: BP 130/71
--- NOTE | 2018-09-09 08:14 | PDOC ---
PULMONARY PROGRESS NOTES Subjective has more cough, not able to cough up sputum. sob, has nasal congestion Vitals Vital Signs Date Time Temp Pulse Resp B/P (MAP) Pulse Ox O2 Delivery O2 Flow Rate FiO2 09/09/18 07:20 97.9 78 20 130/71 (90) 96 Nasal Cannula 2.0 97.9 General: Alert, Oriented X4, No acute distress HEENT: Other (NC AT PERRL) Lungs: Wheezing Cardiovascular: S1, S2 Abdomen: Soft, Non-tender Extremities: No Edema Labs Laboratory Tests Test 09/08/18 05:42 09/08/18 05:55 White Blood Count 7.7 x10^3/uL (4.0-11.0) Red Blood Count 3.83 x10^6/uL (3.50-5.40) Hemoglobin 12.2 g/dL (12.0-15.5) Hematocrit 37.0 % (36.0-47.0) Mean Corpuscular Volume 96 fL (79-100) Mean Corpuscular Hemoglobin 32 pg (25-35) Mean Corpuscular Hemoglobin Concent 33 g/dL (31-37) Red Cell Distribution Width 14.6 % (11.5-14.5) Platelet Count 191 x10^3/uL (140-400) Neutrophils (%) (Auto) 79 % (31-73) Lymphocytes (%) (Auto) 12 % (24-48) Monocytes (%) (Auto) 9 % (0-9) Eosinophils (%) (Auto) 0 % (0-3) Basophils (%) (Auto) 0 % (0-3) Neutrophils # (Auto) 6.1 x10^3uL (1.8-7.7) Lymphocytes # (Auto) 0.9 x10^3/uL (1.0-4.8) Monocytes # (Auto) 0.7 x10^3/uL (0.0-1.1) Eosinophils # (Auto) 0.0 x10^3/uL (0.0-0.7) Basophils # (Auto) 0.0 x10^3/uL (0.0-0.2) Sodium Level 141 mmol/L (136-145) Potassium Level 4.1 mmol/L (3.5-5.1) Chloride Level 100 mmol/L (98-107) Carbon Dioxide Level 37 mmol/L (21-32) Anion Gap 4 (6-14) Blood Urea Nitrogen 21 mg/dL (7-20) Creatinine 0.6 mg/dL (0.6-1.0) Estimated GFR (Cockcroft-Gault) 95.0 BUN/Creatinine Ratio 35 (6-20) Glucose Level 120 mg/dL (70-99) Lactic Acid Level 1.0 mmol/L (0.4-2.0) Calcium Level 8.6 mg/dL (8.5-10.1) Magnesium Level 2.7 mg/dL (1.8-2.4) Total Bilirubin 0.4 mg/dL (0.2-1.0) Aspartate Amino Transf (AST/SGOT) 22 U/L (15-37) Alanine Aminotransferase (ALT/SGPT) 42 U/L (14-59) Alkaline Phosphatase 52 U/L (46-116) Creatine Kinase 69 U/L (26-192) Creatine Kinase MB (Mass) 1.6 ng/mL (0.0-3.6) Creatine Kinase MB Relative Index % (0-4) Troponin I Quantitative 0.025 ng/mL (0.000-0.055) TC-Dey-M-Type Natriuretic Peptide 1276 pg/mL (0-449) Total Protein 6.4 g/dL (6.4-8.2) Albumin 3.5 g/dL (3.4-5.0) Albumin/Globulin Ratio 1.2 (1.0-1.7) Influenza Type A Antigen Positive (NEGATIVE) Influenza Type B Antigen Negative (NEGATIVE) Medications Active Scripts Medications Dose Route/Sig Max Daily Dose Days Date Category Dose Instructions Prednisone 20 Mg Tablet 40 Mg PO DAILY 11 09/06/18 Rx 40mg daily x 3 days, 30mg daily x 3 days, 20 mg daily x 3 days, 10mg daily x 2 days Maxzide 37.5 Mg-25 Mg Tablet (Triamterene/Hydrochlorothiazid) 1 Each Tablet 1 Each PO QMWF 09/04/18 Reported Polyethylene Glycol 3350 17 Gm Powd.pack 17 Gm PO PRN DAILY PRN 30 10/17/17 Rx Montelukast Sodium Tablet (Montelukast Sodium) 10 Mg Tablet 10 Mg PO QHS 30 10/17/17 Rx Calcium + Vitamin D Tablet (Calcium Carbonate/Vitamin D3) 1 Each Tablet 500 Mg PO BID 10/14/17 Reported Acetaminophen 500 Mg Tablet 1 Tab PO BID PRN 10/14/17 Reported Multivitamins (Multivitamin) 1 Each Tablet 1 Tab PO DAILY 10/14/17 Reported Flonase Allergy Relief (Fluticasone Propionate) 9.9 Ml [place].susp 2 Sprays NS DAILY 10/14/17 Reported Fosamax (Alendronate Sodium) 70 Mg Tablet 1 Tab PO WEEKLY 10/14/17 Reported Albuterol Sulfate Neb Soln (Albuterol Sulfate) 0.63 Mg/3 Ml Vial.neb 1 Vial NEB QID 03/01/14 Reported Spiriva (Tiotropium [place]) 18 Mcg Cap.w.dev 1 Cap IH DAILY 03/01/[address] 1. Serpiginous densities in the left lung base and internal density are again seen and stable, likely mucoid impaction within nondilated bronchi. Much smaller tubular densities in the right lung base are also stable, also likely due to distended bronchi. 2. Heart size remains enlarged with small pleural effusion, also similar. Impression . IMPRESSION: 1. Dyspnea with acute on chronic hypoxic respiratory failure secondary to multifactorial etiologies including influenza A, acute exacerbation of Bronchiectasis and recently isolated Pseudomonas from the sputum resulting in superimposed bacterial pneumonia. 2. The patient with chronic bronchiectasis and chronic hypoxic respiratory failure, now has a flare up of her bronchiectasis. 3. No significant history of tobacco use. 4. Bilateral bronchospasm, likely related to respiratory tract infection. She is a lifetime nonsmoker. 5. Immunoglobulin deficiency. Plan . RECOMMENDATIONS: 1. Continue with present Zosyn for Pseudomonas lower respiratory tract infection. Follow the sensitivities. 2. Continue with Tamiflu. 3. change Oral prednisone to solumedrol 40 mg q 8hrs, has more cough and wheezing 4. DuoNeb. every 4 hours. 5. Pulmicort. 6. Noncontrast CT chest reviewed 7. We will follow the response to treatment. 8. Out patient immunoglobulin injections 9. add mucinex discussed EDVIN Delarosa MD Sep 09, 2018 08:13
[2018-09-09] MEDS: OSELTAMIVIR 30 MG CAPSULE PO SCH ×2 (08:25→21:22)
[2018-09-09] MEDS: methylPREDNISolone SOD SUCC PF 40 MG/ML VIAL. IV SCH ×3 (08:25→21:22)
[2018-09-09] MEDS: FLUTICASONE 50MCG/NASAL SPRAY 16GM BOTTLE. NS SCH (08:26)
[2018-09-09] MEDS: MULTIVITAMIN with MINERAL TABLET. PO SCH (08:26)
[2018-09-09] MEDS: CALCIUM CARB/VIT D3 500/200 TABLET. PO SCH ×2 (08:26→17:56)
[2018-09-09] MEDS: BUDESONIDE 0.5 MG/2 ML NEBU. NEB SCH ×2 (08:39→20:59)
[2018-09-09] MEDS ORDERED: predniSONE 10 MG TABLET PO SCH (09:00)
[2018-09-09 11:00] VITALS: BP 105/60
--- NOTE | 2018-09-09 11:05 | PDOC ---
Provider Note Provider Note vss, no temp, still prod cough and wheezes- + flu and pse in sputum, zosyn/ tamiflu/solumedrol- continue same, added mucinex may help- has been off immune globulin iv re insurance issues MICK HOUGH MD Sep 09, 2018 11:05
[2018-09-09 15:00] VITALS: BP 128/70
[2018-09-09] MEDS: POLYETHYLENE GLYCOL 3350 17 GM PACKET. PO PRN (15:25)
[2018-09-09 19:37] VITALS: BP 123/77
[2018-09-09] MEDS: MONTELUKAST SODIUM 10 MG TABLET. PO SCH (21:22)
[2018-09-09 23:53] VITALS: BP 113/60
[2018-09-10] MEDS: PIPERACILLIN/TAZOBACTAM 3.375 GM in IV NORMAL SALINE 50ML 50 ML IV SCH ×4 (00:16→17:42)
[2018-09-10 03:43] VITALS: BP 114/69
[2018-09-10] MEDS: IPRATRPIUM/ALBUTEROL 0.5/2.5MG 3 ML NEBU. NEB SCH ×6 (04:23→19:26)
[2018-09-10] MEDS: methylPREDNISolone SOD SUCC PF 40 MG/ML VIAL. IV SCH ×3 (05:51→21:02)
[2018-09-10 07:20] VITALS: BP 119/70
[2018-09-10] MEDS: OSELTAMIVIR 30 MG CAPSULE PO SCH ×2 (08:52→21:02)
[2018-09-10] MEDS: CALCIUM CARB/VIT D3 500/200 TABLET. PO SCH ×2 (08:52→17:42)
[2018-09-10] MEDS: MULTIVITAMIN with MINERAL TABLET. PO SCH (08:52)
[2018-09-10] MEDS: FLUTICASONE 50MCG/NASAL SPRAY 16GM BOTTLE. NS SCH (08:53)
[2018-09-10] MEDS: POLYETHYLENE GLYCOL 3350 17 GM PACKET. PO PRN (09:00)
[2018-09-10] MEDS: BUDESONIDE 0.5 MG/2 ML NEBU. NEB SCH ×2 (09:39→19:26)
--- NOTE | 2018-09-10 10:19 | PDOC ---
Provider Note Provider Note no temp, vss, feels a little better- still coarse bilat rhonchi and exp wheezes but no dyspnea-labs ok- cont same meds MICK HOUGH MD Sep 10, 2018 10:19
[2018-09-10 11:16] VITALS: BP 123/64
--- NOTE | 2018-09-10 12:07 | PDOC ---
PULMONARY PROGRESS NOTES Subjective less sob, has nasal congestion Vitals Vital Signs Date Time Temp Pulse Resp B/P (MAP) Pulse Ox O2 Delivery O2 Flow Rate FiO2 09/10/18 11:54 Nasal Cannula 2.0 09/10/18 11:16 98.3 74 20 123/64 (83) 96 98.3 General: Alert, Oriented X4, No acute distress HEENT: Other (NC AT PERRL) Lungs: Other (rhonchi) Cardiovascular: S1, S2 Abdomen: Soft, Non-tender Extremities: No Edema Medications Active Scripts Medications Dose Route/Sig Max Daily Dose Days Date Category Dose Instructions Prednisone 20 Mg Tablet 40 Mg PO DAILY 11 09/06/18 Rx 40mg daily x 3 days, 30mg daily x 3 days, 20 mg daily x 3 days, 10mg daily x 2 days Maxzide 37.5 Mg-25 Mg Tablet (Triamterene/Hydrochlorothiazid) 1 Each Tablet 1 Each PO QMWF 09/04/18 Reported Polyethylene Glycol 3350 17 Gm Powd.pack 17 Gm PO PRN DAILY PRN 30 10/17/17 Rx Montelukast Sodium Tablet (Montelukast Sodium) 10 Mg Tablet 10 Mg PO QHS 30 10/17/17 Rx Calcium + Vitamin D Tablet (Calcium Carbonate/Vitamin D3) 1 Each Tablet 500 Mg PO BID 10/14/17 Reported Acetaminophen 500 Mg Tablet 1 Tab PO BID PRN 10/14/17 Reported Multivitamins (Multivitamin) 1 Each Tablet 1 Tab PO DAILY 10/14/17 Reported Flonase Allergy Relief (Fluticasone Propionate) 9.9 Ml [place].susp 2 Sprays NS DAILY 10/14/17 Reported Fosamax (Alendronate Sodium) 70 Mg Tablet 1 Tab PO WEEKLY 10/14/17 Reported Albuterol Sulfate Neb Soln (Albuterol Sulfate) 0.63 Mg/3 Ml Vial.neb 1 Vial NEB QID 03/01/14 Reported Spiriva (Tiotropium [place]) 18 Mcg Cap.w.dev 1 Cap IH DAILY 03/01/[address] 1. Serpiginous densities in the left lung base and internal density are again seen and stable, likely mucoid impaction within nondilated bronchi. Much smaller tubular densities in the right lung base are also stable, also likely due to distended bronchi. 2. Heart size remains enlarged with small pleural effusion, also similar. Impression . IMPRESSION: 1. Dyspnea with acute on chronic hypoxic respiratory failure secondary to multifactorial etiologies including influenza A, acute exacerbation of Bronchiectasis and recently isolated Pseudomonas from the sputum resulting in superimposed bacterial pneumonia. 2. The patient with chronic bronchiectasis and chronic hypoxic respiratory failure, now has a flare up of her bronchiectasis. 3. No significant history of tobacco use. 4. Bilateral bronchospasm, likely related to respiratory tract infection. She is a lifetime nonsmoker. improved 5. Immunoglobulin deficiency. Plan . 1. Continue with present Zosyn for Pseudomonas lower respiratory tract infection. PSA was pansensitive. 2. Continue with Tamiflu. 3. solumedrol taper 4. DuoNeb. every 4 hours. 5. Pulmicort. 6. Noncontrast CT chest reviewed 7. We will follow the response to treatment. 8. Out patient immunoglobulin injections 9. mucinex discussed LEON Brooks MD Sep 10, 2018 12:07
[2018-09-10 15:00] VITALS: BP 128/72
[2018-09-10 19:00] VITALS: BP 128/73
[2018-09-10] MEDS: MONTELUKAST SODIUM 10 MG TABLET. PO SCH (21:02)
[2018-09-10 23:00] VITALS: BP 133/91
[2018-09-11] MEDS: IPRATRPIUM/ALBUTEROL 0.5/2.5MG 3 ML NEBU. NEB SCH ×6 (00:28→21:20)
[2018-09-11] MEDS: PIPERACILLIN/TAZOBACTAM 3.375 GM in IV NORMAL SALINE 50ML 50 ML IV SCH ×5 (00:41→23:59)
[2018-09-11 03:00] VITALS: BP 131/79
[2018-09-11] MEDS: methylPREDNISolone SOD SUCC PF 40 MG/ML VIAL. IV SCH ×3 (05:58→21:47)
[2018-09-11 07:00] VITALS: BP 148/74
[2018-09-11] MEDS: BUDESONIDE 0.5 MG/2 ML NEBU. NEB SCH ×2 (07:18→21:21)
[2018-09-11] MEDS: MULTIVITAMIN with MINERAL TABLET. PO SCH (07:35)
[2018-09-11] MEDS: OSELTAMIVIR 30 MG CAPSULE PO SCH ×2 (07:35→21:47)
[2018-09-11] MEDS: FLUTICASONE 50MCG/NASAL SPRAY 16GM BOTTLE. NS SCH (07:35)
[2018-09-11] MEDS: CALCIUM CARB/VIT D3 500/200 TABLET. PO SCH ×2 (07:35→17:48)
--- NOTE | 2018-09-11 08:26 | PDOC ---
Provider Note Provider Note feels same, no temp, still lots of thick sputum, and wheezes/rhonchi- feel she still needs both iv meds, may need to consider broch re tenacious sputum/psa- MICK HOUGH MD Sep 11, 2018 08:26
[2018-09-11 11:00] VITALS: BP 126/70
--- NOTE | 2018-09-11 14:06 | PDOC ---
PULMONARY PROGRESS NOTES Subjective less sob, has nasal congestion Vitals Vital Signs Date Time Temp Pulse Resp B/P (MAP) Pulse Ox O2 Delivery O2 Flow Rate FiO2 09/11/18 11:19 94 Nasal Cannula 2.0 09/11/18 11:00 98.1 70 18 126/70 (88) 98.1 General: Alert, Oriented X4, No acute distress HEENT: Other (NC AT PERRL) Lungs: Other (rhonchi) Cardiovascular: S1, S2 Abdomen: Soft, Non-tender Extremities: No Edema Medications Active Scripts Medications Dose Route/Sig Max Daily Dose Days Date Category Dose Instructions Prednisone 20 Mg Tablet 40 Mg PO DAILY 11 09/06/18 Rx 40mg daily x 3 days, 30mg daily x 3 days, 20 mg daily x 3 days, 10mg daily x 2 days Maxzide 37.5 Mg-25 Mg Tablet (Triamterene/Hydrochlorothiazid) 1 Each Tablet 1 Each PO QMWF 09/04/18 Reported Polyethylene Glycol 3350 17 Gm Powd.pack 17 Gm PO PRN DAILY PRN 30 10/17/17 Rx Montelukast Sodium Tablet (Montelukast Sodium) 10 Mg Tablet 10 Mg PO QHS 30 10/17/17 Rx Calcium + Vitamin D Tablet (Calcium Carbonate/Vitamin D3) 1 Each Tablet 500 Mg PO BID 10/14/17 Reported Acetaminophen 500 Mg Tablet 1 Tab PO BID PRN 10/14/17 Reported Multivitamins (Multivitamin) 1 Each Tablet 1 Tab PO DAILY 10/14/17 Reported Flonase Allergy Relief (Fluticasone Propionate) 9.9 Ml [place].susp 2 Sprays NS DAILY 10/14/17 Reported Fosamax (Alendronate Sodium) 70 Mg Tablet 1 Tab PO WEEKLY 10/14/17 Reported Albuterol Sulfate Neb Soln (Albuterol Sulfate) 0.63 Mg/3 Ml Vial.neb 1 Vial NEB QID 03/01/14 Reported Spiriva (Tiotropium [place]) 18 Mcg Cap.w.dev 1 Cap IH DAILY 03/01/[address] 1. Serpiginous densities in the left lung base and internal density are again seen and stable, likely mucoid impaction within nondilated bronchi. Much smaller tubular densities in the right lung base are also stable, also likely due to distended bronchi. 2. Heart size remains enlarged with small pleural effusion, also similar. Impression . IMPRESSION: 1. Dyspnea with acute on chronic hypoxic respiratory failure secondary to multifactorial etiologies including influenza A, acute exacerbation of Bronchiectasis and recently isolated Pseudomonas from the sputum resulting in superimposed bacterial pneumonia. 2. The patient with chronic bronchiectasis and chronic hypoxic respiratory failure, now has a flare up of her bronchiectasis. 3. No significant history of tobacco use. 4. Bilateral bronchospasm, likely related to respiratory tract infection/ some mucous plugging. She is a lifetime nonsmoker. improved 5. Immunoglobulin deficiency. Plan . 1. Continue with present Zosyn for Pseudomonas lower respiratory tract infection. PSA was pansensitive. 2. Continue with Tamiflu. 3. solumedrol taper 4. DuoNeb. every 4 hours. 5. Pulmicort. 6. Noncontrast CT chest reviewed 7. We will follow the response to treatment. 8. Out patient immunoglobulin injections 9. mucinex discussed LEON Brooks MD Sep 11, 2018 14:06
[2018-09-11] MEDS: POLYETHYLENE GLYCOL 3350 17 GM PACKET. PO PRN (15:55)
[2018-09-11 16:00] VITALS: BP 136/80
[2018-09-11 19:10] VITALS: BP 156/85
[2018-09-11] MEDS: MONTELUKAST SODIUM 10 MG TABLET. PO SCH (21:47)
[2018-09-11 23:10] VITALS: BP 131/71
[2018-09-12] MEDS: IPRATRPIUM/ALBUTEROL 0.5/2.5MG 3 ML NEBU. NEB SCH ×6 (00:15→20:19)
[2018-09-12 03:10] VITALS: BP 107/61
[2018-09-12] MEDS: methylPREDNISolone SOD SUCC PF 40 MG/ML VIAL. IV SCH (05:46)
[2018-09-12] MEDS: PIPERACILLIN/TAZOBACTAM 3.375 GM in IV NORMAL SALINE 50ML 50 ML IV SCH ×3 (05:46→19:07)
[2018-09-12 07:00] VITALS: BP 143/78
[2018-09-12] MEDS: BUDESONIDE 0.5 MG/2 ML NEBU. NEB SCH ×2 (08:06→20:19)
--- NOTE | 2018-09-12 08:23 | PDOC ---
Provider Note Provider Note vss, no temp, feels a litlle better- still diffuse coarse rhonchi and exp wheezes- prior echo 2018 was ok, ef 55%- will reduce steroid to 40 bid, zosyn same- maybe po pred 09/13 MICK HOUGH MD Sep 12, 2018 08:22
--- NOTE | 2018-09-12 08:36 | PDOC ---
PULMONARY PROGRESS NOTES Subjective less sob, has nasal congestion Vitals Vital Signs Date Time Temp Pulse Resp B/P (MAP) Pulse Ox O2 Delivery O2 Flow Rate FiO2 09/12/18 08:07 96 Nasal Cannula 2.0 09/12/18 07:00 98.3 76 18 143/78 (99) 98.3 General: Alert, Oriented X4, No acute distress HEENT: Other (NC AT PERRL) Lungs: Other (rhonchi) Cardiovascular: S1, S2 Abdomen: Soft, Non-tender Extremities: No Edema Medications Active Scripts Medications Dose Route/Sig Max Daily Dose Days Date Category Dose Instructions Prednisone 20 Mg Tablet 40 Mg PO DAILY 11 09/06/18 Rx 40mg daily x 3 days, 30mg daily x 3 days, 20 mg daily x 3 days, 10mg daily x 2 days Maxzide 37.5 Mg-25 Mg Tablet (Triamterene/Hydrochlorothiazid) 1 Each Tablet 1 Each PO QMWF 09/04/18 Reported Polyethylene Glycol 3350 17 Gm Powd.pack 17 Gm PO PRN DAILY PRN 30 10/17/17 Rx Montelukast Sodium Tablet (Montelukast Sodium) 10 Mg Tablet 10 Mg PO QHS 30 10/17/17 Rx Calcium + Vitamin D Tablet (Calcium Carbonate/Vitamin D3) 1 Each Tablet 500 Mg PO BID 10/14/17 Reported Acetaminophen 500 Mg Tablet 1 Tab PO BID PRN 10/14/17 Reported Multivitamins (Multivitamin) 1 Each Tablet 1 Tab PO DAILY 10/14/17 Reported Flonase Allergy Relief (Fluticasone Propionate) 9.9 Ml [place].susp 2 Sprays NS DAILY 10/14/17 Reported Fosamax (Alendronate Sodium) 70 Mg Tablet 1 Tab PO WEEKLY 10/14/17 Reported Albuterol Sulfate Neb Soln (Albuterol Sulfate) 0.63 Mg/3 Ml Vial.neb 1 Vial NEB QID 03/01/14 Reported Spiriva (Tiotropium [place]) 18 Mcg Cap.w.dev 1 Cap IH DAILY 03/01/[address] 1. Serpiginous densities in the left lung base and internal density are again seen and stable, likely mucoid impaction within nondilated bronchi. Much smaller tubular densities in the right lung base are also stable, also likely due to distended bronchi. 2. Heart size remains enlarged with small pleural effusion, also similar. Impression . IMPRESSION: 1. Dyspnea with acute on chronic hypoxic respiratory failure secondary to multifactorial etiologies including influenza A, acute exacerbation of Bronchiectasis and recently isolated Pseudomonas from the sputum resulting in superimposed bacterial pneumonia. 2. The patient with chronic bronchiectasis and chronic hypoxic respiratory failure, now has a flare up of her bronchiectasis. 3. No significant history of tobacco use. 4. Bilateral bronchospasm, likely related to respiratory tract infection/ some mucous plugging. She is a lifetime nonsmoker. improved 5. Immunoglobulin deficiency. Plan . 1. Continue with present Zosyn for Pseudomonas lower respiratory tract infection. PSA was pansensitive. 2. Continue with Tamiflu. 3. solumedrol taper 4. DuoNeb. every 4 hours. 5. Pulmicort. 6. Noncontrast CT chest reviewed 7. We will follow the response to treatment. 8. Out patient immunoglobulin injections 9. mucinex discussed ARELY Garcia MD Sep 12, 2018 08:36
[2018-09-12] MEDS: CALCIUM CARB/VIT D3 500/200 TABLET. PO SCH ×2 (08:41→16:47)
[2018-09-12] MEDS: FLUTICASONE 50MCG/NASAL SPRAY 16GM BOTTLE. NS SCH (08:42)
[2018-09-12] MEDS: MULTIVITAMIN with MINERAL TABLET. PO SCH (08:42)
[2018-09-12] MEDS: OSELTAMIVIR 30 MG CAPSULE PO SCH ×2 (08:42→21:12)
[2018-09-12 10:49] VITALS: BP 122/64
[2018-09-12 15:00] VITALS: BP 133/68
[2018-09-12] MEDS ORDERED: methylPREDNISolone SOD SUCC PF 40 MG/ML VIAL. IV SCH (16:00)
[2018-09-12 19:20] VITALS: BP 128/70
[2018-09-12] MEDS: MONTELUKAST SODIUM 10 MG TABLET. PO SCH (21:12)
[2018-09-12 23:14] VITALS: BP 113/67
[2018-09-13] MEDS: PIPERACILLIN/TAZOBACTAM 3.375 GM in IV NORMAL SALINE 50ML 50 ML IV SCH ×2 (00:19→06:08)
[2018-09-13 03:10] VITALS: BP 116/68
[2018-09-13] MEDS: IPRATRPIUM/ALBUTEROL 0.5/2.5MG 3 ML NEBU. NEB SCH ×7 (04:00→23:14)
[2018-09-13] MEDS: BUDESONIDE 0.5 MG/2 ML NEBU. NEB SCH ×2 (06:36→19:34)
[2018-09-13 07:00] VITALS: BP 128/71
--- NOTE | 2018-09-13 08:09 | PDOC ---
Provider Note Provider Note afeb, feels a little better- states less sputum production also- sounds wheezy but less rhonchi, rest of exam same- will go to po pred now , maybe zenaida in am MICK HOUGH MD Sep 13, 2018 08:09
--- NOTE | 2018-09-13 08:56 | NUR ---
IP: Pt has completed a course of Tamiflu and 5 days of droplet precautions without a fever. Pt may now be removed from those precautions.
[2018-09-13] MEDS ORDERED: predniSONE 20 MG TABLET PO SCH (09:00)
[2018-09-13] MEDS: FLUTICASONE 50MCG/NASAL SPRAY 16GM BOTTLE. NS SCH (09:36)
[2018-09-13] MEDS: CALCIUM CARB/VIT D3 500/200 TABLET. PO SCH ×2 (09:37→17:20)
[2018-09-13] MEDS: MULTIVITAMIN with MINERAL TABLET. PO SCH (09:37)
[2018-09-13 11:00] VITALS: BP 135/70
[2018-09-13] MEDS: AMOXICILLIN/K CLAV 875/125MG TABLET. PO SCH ×2 (13:19→20:28)
--- NOTE | 2018-09-13 13:49 | PDOC ---
PULMONARY PROGRESS NOTES Subjective less sob, has nasal congestion Vitals Vital Signs Date Time Temp Pulse Resp B/P (MAP) Pulse Ox O2 Delivery O2 Flow Rate FiO2 09/13/18 11:43 94 Nasal Cannula 2.0 09/13/18 11:00 98.1 79 18 135/70 (91) 98.1 General: Alert, Oriented X4, No acute distress HEENT: Other (NC AT PERRL) Lungs: Other (rhonchi) Cardiovascular: S1, S2 Abdomen: Soft, Non-tender Extremities: No Edema Medications Active Scripts Medications Dose Route/Sig Max Daily Dose Days Date Category Dose Instructions Prednisone 20 Mg Tablet 40 Mg PO DAILY 11 09/06/18 Rx 40mg daily x 3 days, 30mg daily x 3 days, 20 mg daily x 3 days, 10mg daily x 2 days Maxzide 37.5 Mg-25 Mg Tablet (Triamterene/Hydrochlorothiazid) 1 Each Tablet 1 Each PO QMWF 09/04/18 Reported Polyethylene Glycol 3350 17 Gm Powd.pack 17 Gm PO PRN DAILY PRN 30 10/17/17 Rx Montelukast Sodium Tablet (Montelukast Sodium) 10 Mg Tablet 10 Mg PO QHS 30 10/17/17 Rx Calcium + Vitamin D Tablet (Calcium Carbonate/Vitamin D3) 1 Each Tablet 500 Mg PO BID 10/14/17 Reported Acetaminophen 500 Mg Tablet 1 Tab PO BID PRN 10/14/17 Reported Multivitamins (Multivitamin) 1 Each Tablet 1 Tab PO DAILY 10/14/17 Reported Flonase Allergy Relief (Fluticasone Propionate) 9.9 Ml [place].susp 2 Sprays NS DAILY 10/14/17 Reported Fosamax (Alendronate Sodium) 70 Mg Tablet 1 Tab PO WEEKLY 10/14/17 Reported Albuterol Sulfate Neb Soln (Albuterol Sulfate) 0.63 Mg/3 Ml Vial.neb 1 Vial NEB QID 03/01/14 Reported Spiriva (Tiotropium [place]) 18 Mcg Cap.w.dev 1 Cap IH DAILY 03/01/[address] 1. Serpiginous densities in the left lung base and internal density are again seen and stable, likely mucoid impaction within nondilated bronchi. Much smaller tubular densities in the right lung base are also stable, also likely due to distended bronchi. 2. Heart size remains enlarged with small pleural effusion, also similar. Impression . IMPRESSION: 1. Dyspnea with acute on chronic hypoxic respiratory failure secondary to multifactorial etiologies including influenza A, acute exacerbation of Bronchiectasis and recently isolated Pseudomonas from the sputum resulting in superimposed bacterial pneumonia. 2. The patient with chronic bronchiectasis and chronic hypoxic respiratory failure, now has a flare up of her bronchiectasis. 3. No significant history of tobacco use. 4. Bilateral bronchospasm, likely related to respiratory tract infection/ some mucous plugging. She is a lifetime nonsmoker. improved 5. Immunoglobulin deficiency. Plan . 1. dc Zosyn . change to PO Augmentin. PSA was pansensitive. 2. off Tamiflu. 3. solumedrol taper 4. DuoNeb. every 4 hours. 5. Pulmicort. 6. Noncontrast CT chest reviewed 7. We will follow the response to treatment. 8. Out patient immunoglobulin injections 9. mucinex discussed LEON Brooks MD Sep 13, 2018 13:49
[2018-09-13 15:00] VITALS: BP 147/90
[2018-09-13 19:00] VITALS: BP 105/55
[2018-09-13] MEDS: MONTELUKAST SODIUM 10 MG TABLET. PO SCH (20:28)
[2018-09-13 23:00] VITALS: BP 112/63
[2018-09-14 03:00] VITALS: BP 113/56
[2018-09-14] MEDS: IPRATRPIUM/ALBUTEROL 0.5/2.5MG 3 ML NEBU. NEB SCH ×3 (03:35→11:07)
[2018-09-14] MEDS: BUDESONIDE 0.5 MG/2 ML NEBU. NEB SCH (06:02)
[2018-09-14 07:15] VITALS: BP 112/59
--- NOTE | 2018-09-14 08:19 | PDOC ---
Provider Note Provider Note [id number] MICK HOUGH MD Sep 14, 2018 08:19
[2018-09-14] MEDS ORDERED: CIPROFLOXACIN HCL 250 MG TABLET. PO SCH (09:00)
[2018-09-14] MEDS ORDERED: predniSONE 20 MG TABLET PO SCH (09:00)
[2018-09-14] MEDS: FLUTICASONE 50MCG/NASAL SPRAY 16GM BOTTLE. NS SCH (09:00)
[2018-09-14] MEDS: CALCIUM CARB/VIT D3 500/200 TABLET. PO SCH (09:10)
[2018-09-14] MEDS: MULTIVITAMIN with MINERAL TABLET. PO SCH (09:10)
--- NOTE | 2018-09-14 11:45 | NUR ---
Discharge Note: GISELLE KEITH T6 [facility] Discharge instructions and discharge home medications reviewed with Patient and a copy given. All questions have been answered and understanding verbalized. The following instructions and handouts were given: F/U with Dr. Toure in one week. Discontinued lines and drains: Peripheral IV intact. Patient discharged to Home or Self Care with son via Wheelchair
--- NOTE | 2018-09-14 18:45 | DS ---
DATE OF DISCHARGE: 09/14/2018 HOSPITAL SUMMARY: An 87-year-old female with known bronchiectasis who recently had a productive cough that ultimately cultured out pseudomonas, came back in with increasing wheezing and shortness of breath. CBC and chemistry profile were unremarkable. Serology for flu was positive for type A. Chest x-ray and CT scan showed no acute changes. She was treated with IV Zosyn and IV Solu-Medrol and transitioned to oral medications the day prior to dismissal and was afebrile throughout the hospital stay and generally doing better and able to be discharged and followed as an outpatient. FINAL DIAGNOSES: 1. Acute exacerbation of chronic bronchiectasis. 2. Pseudomonas aeruginosa bronchitis. OPERATIONS, PROCEDURES, COMPLICATIONS: None. CONSULTATIONS: Dr. Claros and Dr. Gilliam. DISPOSITION: She will take Cipro 500 mg twice a day for 1 more week, prednisone taper over the next several days, same medications at home otherwise, continue immunoglobulin injections through [facility] for her immunoglobulin deficiency and her prognosis is guarded. MICK HOUGH MD DR: DENIZ/miguel ángel JOB#: [id number] / [id number]
== END 2018-09-14 11:45 | disposition home or self-care (01) | DRG 177 ==
LOC: ER 05:28 → 6 SOUTH 07:24
PROVIDERS: ADMIT Family Medicine; ATTEND Family Medicine
DX: J10.08 Influenza due to other identified influenza virus with other specified pneumonia (principal); J96.21 Acute and chronic respiratory failure with hypoxia; J15.6 Pneumonia due to other Gram-negative bacteria; J47.1 Bronchiectasis with (acute) exacerbation; B96.5 Pseudomonas (aeruginosa) (mallei) (pseudomallei) as the cause of diseases classified elsewhere; I10 Essential (primary) hypertension; Z96.659 Presence of unspecified artificial knee joint; Z96.649 Presence of unspecified artificial hip joint; M81.0 Age-related osteoporosis without current pathological fracture; Z87.11 Personal history of peptic ulcer disease; Z90.2 Acquired absence of lung [part of]; Z90.49 Acquired absence of other specified parts of digestive tract; Z90.710 Acquired absence of both cervix and uterus; Z98.42 Cataract extraction status, left eye
CPT/HCPCS: 36415; 71046; 71250; 80053; 82553; 83605; 83735; 83880; 84484; 85025; 87804; 93005; 94640; 94760; J2543; J2920; J2930; J7512; J7613; J7620; J7626; 97110; 97116; 97530; 97535; 99285-25

== ENCOUNTER → 2018-10-05 | Outpatient (CLI) | payer BC ==
[2018-09-14 07:15] VITALS: BP 112/59
--- NOTE | 2018-10-05 15:49 | KCIC ---
Chest, PA and Lateral: Technique: PA and lateral views of the chest were obtained. History: Shortness of breath on exertion. Comparison: 10/23/2018. Findings: Low lung volumes accentuate heart and pulmonary vascularity. Mild bibasilar lung airspace opacities likely atelectasis or infiltrates slightly improved since prior exam. Moderate degenerative changes thoracic spine. IMPRESSION: Mild bibasilar lung airspace opacities likely atelectasis or infiltrates slightly improved since prior exam. Electronically signed by: Homero Galicia MD (10/05/2018 3:46 PM) [facility]
== END | disposition home or self-care (01) ==
LOC: KCIC 14:37
PROVIDERS: ATTEND Internal Medicine
DX: R06.02 Shortness of breath (principal); M47.814 Spondylosis without myelopathy or radiculopathy, thoracic region
CPT/HCPCS: 71046

== ENCOUNTER 2018-10-09 12:33 | Inpatient (IN) | payer BC ==
[~2018-10-09] VITALS: Ht 167.6 cm; Wt 73.5 kg
[2018-10-09] MEDS ORDERED: fentaNYL PF VIAL 100 MCG/2 ML VIAL ONE (12:51)
[2018-10-09] MEDS ORDERED: fentaNYL PF VIAL 100 MCG/2 ML VIAL IV ONE (13:00)
--- NOTE | 2018-10-09 13:06 | PHYS DOC ---
Past Medical History Past Medical History: COPD, Hypertension, Lung Disease, Pneumonia, Other Additional Past Medical Histor: STOMACH ULCERS,BRONCHIECTASIS, Osteoporosis Past Surgical History: Appendectomy, Hip Replacement, Hysterectomy, Knee Replacement, Tonsillectomy, Other Additional Past Surgical Histo: Partial L LOBECTOMY,BLADDER,CATARACT,RECTOCELE, RT KNEE, Bilateral Hip Alcohol Use: None Drug Use: None Adult General Chief Complaint Chief Complaint: HIP PAIN HPI HPI Patient is a 87 year old female who brought in by EMS because of right hip pain and injury. Patient states she was riding a shopping cart at a grocery store and because of sudden movement of shopping carts felt a pop in her right hip and unable to stand up. Patient states she had history of right hip replacement years ago with multiple hip dislocations and usually needs to go to operating room for reduction of her hip. Patient rated her pain without movement and denies other injuries or focal neuro deficit. Review of Systems Review of Systems Constitutional: Denies fever or chills [] Eyes: Denies change in visual acuity, redness, or eye pain [] HENT: Denies nasal congestion or sore throat [] Respiratory: Denies cough or shortness of breath [] Cardiovascular: No additional information not addressed in HPI [] GI: Denies abdominal pain, nausea, vomiting, bloody stools or diarrhea [] : Denies dysuria or hematuria [] Musculoskeletal: Denies back pain, reports joint pain [] Integument: Denies rash or skin lesions [] Neurologic: Denies headache, focal weakness or sensory changes [] Endocrine: Denies polyuria or polydipsia [] All other systems were reviewed and found to be within normal limits, except as documented in this note. Current Medications Current Medications Current Medications Medications (Trade) Dose Ordered Sig/Sudhakar Start Time Stop Time Status Last Admin Dose Admin Fentanyl Citrate (Fentanyl 2ml Vial) 100 mcg STK-MED ONCE 10/09/18 12:51 10/09/18 12:52 DC Propofol (Diprivan) 200 mg 1X ONCE 10/09/18 13:30 10/09/18 13:31 DC 10/09/18 14:02 200 MG Sodium Chloride 1,000 ml @ 125 mls/hr 1X ONCE 10/09/18 13:30 10/09/18 15:36 DC 10/09/18 13:57 125 MLS/HR Allergies Allergies Allergies Coded Allergies Type Severity Reaction Last Updated Verified No Known Drug Allergies 07/05/18 No Physical Exam Physical Exam Constitutional: Well developed, well nourished, mild distress, non-toxic appearance. [] HENT: Normocephalic, atraumatic. Eyes: PERRLA, EOMI, conjunctiva normal, no discharge. [] Neck: Normal range of motion, no tenderness, supple, no stridor. [] Cardiovascular:Heart rate regular rhythm, no murmur [] Lungs & Thorax: Bilateral breath sounds clear to auscultation [] Back: No tenderness, no CVA tenderness. [] Extremities: Right lower extremity with external rotation and shortening of the leg without neurovascular deficit, unable to move her leg without pain, no edema. [] Neurologic: Alert and oriented X 3, normal motor function, normal sensory function, no focal deficits noted. [] Psychologic: Affect normal, judgement normal, mood normal. [] Current Patient Data Vital Signs Vital Signs Date Time Temp Pulse Resp B/P (MAP) Pulse Ox O2 Delivery O2 Flow Rate FiO2 10/09/18 14:00 97.9 87 18 150/75 2.0 75 16 15.0 82 16 15.0 15.0 15.0 3.0 3.0 10/09/18 12:55 98 Lab Values Laboratory Tests Test 10/09/18 13:10 White Blood Count 4.6 x10^3/uL (4.0-11.0) Red Blood Count 3.51 x10^6/uL (3.50-5.40) Hemoglobin 11.2 g/dL (12.0-15.5) L Hematocrit 33.8 % (36.0-47.0) L Mean Corpuscular Volume 96 fL (79-100) Mean Corpuscular Hemoglobin 32 pg (25-35) Mean Corpuscular Hemoglobin Concent 33 g/dL (31-37) Red Cell Distribution Width 14.6 % (11.5-14.5) H Platelet Count 239 x10^3/uL (140-400) Neutrophils (%) (Auto) 91 % (31-73) H Lymphocytes (%) (Auto) 7 % (24-48) L Monocytes (%) (Auto) 2 % (0-9) Eosinophils (%) (Auto) 0 % (0-3) Basophils (%) (Auto) 0 % (0-3) Neutrophils # (Auto) 4.2 x10^3uL (1.8-7.7) Lymphocytes # (Auto) 0.3 x10^3/uL (1.0-4.8) L Monocytes # (Auto) 0.1 x10^3/uL (0.0-1.1) Eosinophils # (Auto) 0.0 x10^3/uL (0.0-0.7) Basophils # (Auto) 0.0 x10^3/uL (0.0-0.2) Segmented Neutrophils % 94 % (35-66) H Lymphocytes % 6 % (24-48) L Platelet Estimate Adequate (ADEQUATE) Sodium Level 139 mmol/L (136-145) Potassium Level 3.9 mmol/L (3.5-5.1) Chloride Level 101 mmol/L (98-107) Carbon Dioxide Level 34 mmol/L (21-32) H Anion Gap 4 (6-14) L Blood Urea Nitrogen 19 mg/dL (7-20) Creatinine 0.7 mg/dL (0.6-1.0) Estimated GFR (Cockcroft-Gault) 79.5 BUN/Creatinine Ratio 27 (6-20) H Glucose Level 142 mg/dL (70-99) H Calcium Level 8.9 mg/dL (8.5-10.1) Total Bilirubin 0.3 mg/dL (0.2-1.0) Aspartate Amino Transferase (AST) 19 U/L (15-37) Alanine Aminotransferase (ALT) 23 U/L (14-59) Alkaline Phosphatase 48 U/L (46-116) Total Protein 6.5 g/dL (6.4-8.2) Albumin 3.4 g/dL (3.4-5.0) Albumin/Globulin Ratio 1.1 (1.0-1.7) Laboratory Tests 10/09/18 13:10 Laboratory Tests 10/09/18 13:10 EKG EKG [] Radiology/Procedures Radiology/Procedures [facility] [address] [place] [address] IMAGING REPORT Signed PATIENT: GISELLE KEITH ACCOUNT: [id number] : 1930 LOCATION: ER AGE: 87 SEX: F EXAM STATUS: PRE ER ORD. PHYSICIAN: DU STEPHENSON MD REASON: possible dislocation PROCEDURE: HIP RIGHT 2V WITH PELVIS Pelvis with right hip, 10/09/2018: HISTORY: Possible dislocation, pain Comparison is made to a study from 06/14/2018. There is anterior dislocation of the prosthetic right femoral head without relative to the acetabular cup. A chronic bony fragment is again noted projected over the right lesser trochanter. No acute fracture is identified. The left hip prosthesis is unremarkable. IMPRESSION: Dislocated right total hip prosthesis Electronically signed by: Emiliano Doshi MD (10/09/2018 1:18 PM) [facility] DICTATED and SIGNED BY: EMILIANO DOSHI MD DATE: 10/09/18 7684 Course & Med Decision Making Course & Med Decision Making Pertinent Labs and Imaging studies reviewed. (See chart for details) Evolution of patient in ER showed 87-year-old female patient with history of recurrent right hip dislocation. Reduction try in ER was unsuccessful because patient could not tolerate Propofol with decrease of O2 sat to 85%. Orthopedic on-call Dr Barahona was consulted at 1430 today and requested admission to hospitalist service and plan to take patient to OR like her previous hip dislocation episode for reduction. Dragon Disclaimer Dragon Disclaimer This electronic medical record was generated, in whole or in part, using a voice recognition dictation system. Departure Departure Impression: Primary Impression: Recurrent dislocation, right hip Disposition: ADMITTED INPATIENT Admitting Physician: Mick Toure (at 1542) Condition: STABLE Referrals: MICK TOURE MD (PCP) MODERATE SEDATION ASSESSMENT RISKS/ALTERNATIVES Risks/Alternatives Risks and alternatives of this type of sedation and procedure discussed with: RISK/ALTERNATIVES: Patient H & P ON CHART H & P H & P on chart and reviewed for co-morbid conditions and appropriate labs. H&P ON CHART: Yes STATUS PREG STATUS ASSESSED: N/A MEDS/ALLERGIES REVIEWED Meds/Allergies Reviewed Medications and Allergies including time and route of recently administered narcotics and sedatives. MEDS/ALLERGIES REVIEWED: Yes ASA RATING ASA RATING: I AIRWAY ASSESSMENT Airway Assessment Airway patency, oral function limitations, presence of caps, crowns, dentures, partials, and ability to extend neck assessed. AIRWAY ASSESSMENT: Yes MALLAMPATI SCORE MALLAMPATI SCORE: I PRE-SEDATION ASSESSMENT PRE-SEDATION ASSESSMENT: Yes Joint Reduction Procedure Joint Indication: Right hip dislocation Consent: Consent was obtained. Procedure: The pre-reduction exam showed distal perfusion and neurologic function to be normal. The patient was placed in the appropriate position. Anesthesia/pain control with fentanyl and 70 mg of picograms was given. Patient became desaturated desaturation with O2 sat of 85 that improved gradually with nonrebreather. Because of lack of muscle relaxation dislocation was not reduced in ER. Complications: Hypoxia DU STEPHENSON MD October 09, 2018 13:06
--- NOTE | 2018-10-09 13:21 | RAD ---
Pelvis with right hip, 10/09/2018: HISTORY: Possible dislocation, pain Comparison is made to a study from 06/14/2018. There is anterior dislocation of the prosthetic right femoral head without relative to the acetabular cup. A chronic bony fragment is again noted projected over the right lesser trochanter. No acute fracture is identified. The left hip prosthesis is unremarkable. IMPRESSION: Dislocated right total hip prosthesis Electronically signed by: Emiliano Doshi MD (10/09/2018 1:18 PM) [facility]
[2018-10-09 13:29] LABS: BASO % 0 % (0-3); EOS % 0 % (0-3); HEMATOCRIT 33.8 % (36.0-47.0); HEMOGLOBIN 11.2 g/dL (12.0-15.5); LYMPH # 0.3 x10^3/uL (1.0-4.8); LYMPH % 7 % (24-48); MEAN CORPUSCULAR HEMOGLOBIN 32 pg (25-35); MEAN CORPUSCULAR HGB CONC 33 g/dL (31-37); MEAN CORPUSCULAR VOLUME 96 fL (79-100); MONO # 0.1 x10^3/uL (0.0-1.1); MONO % 2 % (0-9); NEUT # 4.2 x10^3uL (1.8-7.7); NEUT % 91 % (31-73); PLATELET COUNT 239 x10^3/uL (140-400); RED BLOOD COUNT 3.51 x10^6/uL (3.50-5.40); RED CELL DISTRIBUTION WIDTH 14.6 % (11.5-14.5); WHITE BLOOD COUNT 4.6 x10^3/uL (4.0-11.0)
[2018-10-09] MEDS ORDERED: PROPOFOL 10 MG/ML (20ML) VIAL. IV ONE (13:30)
[2018-10-09] MEDS ORDERED: IV NORMAL SALINE 1000ML BAG 1,000 ML IV ONE (13:30)
[2018-10-09 13:37] LABS: CALCIUM 8.9 mg/dL (8.5-10.1); CREATININE 0.7 mg/dL (0.6-1.0); GFR 79.5; POTASSIUM 3.9 mmol/L (3.5-5.1)
[2018-10-09 13:45] LABS: ALBUMIN 3.4 g/dL (3.4-5.0); ALBUMIN/GLOBULIN RATIO 1.1 (1.0-1.7); TOTAL BILIRUBIN 0.3 mg/dL (0.2-1.0); TOTAL PROTEIN 6.5 g/dL (6.4-8.2)
[2018-10-09 14:00] VITALS: BP 150/75
[2018-10-09 14:57] LABS: % LYMPHS 6 % (24-48); % SEGS 94 % (35-66); PLT ESTIMATE ADEQUATE (ADEQUATE)
--- NOTE | 2018-10-09 16:00 | NUR ---
Pt arrived to unit by marcy at 1535, from ED, report received from CARMELITA Malhotra. Admission Dx R total hip prosthesis dislocation, recurrent. Closed reduction at ED not successful. Pt A&O x, able to make needs known. Son at bedside provided with code. NPO until Dr Barahona contacted. Fall precautions in place, home medications verified, Dr Toure notified of Pt's arrival. Admission assessment in progress.
[2018-10-09] MEDS: IV NORMAL SALINE 1000ML BAG 1,000 ML IV SCH ×2 (16:45→22:27)
[2018-10-09 19:00] VITALS: BP 123/53
[2018-10-09] MEDS: ALBUTEROL SULFATE 2.5 MG/3 ML NEBU. NEB SCH (19:37)
[2018-10-09] MEDS ORDERED: NON FORMULARY ITEM (Albuterol Sulfate (Albuterol Sulfate Neb Soln) 1 VIAL) NEB SCH (21:00)
[2018-10-09] MEDS: fentaNYL PF VIAL 100 MCG/2 ML VIAL IV PRN (21:48)
[2018-10-09] MEDS: POLYETHYLENE GLYCOL 3350 17 GM PACKET. PO PRN (21:48)
[2018-10-09 23:00] VITALS: BP 116/55
[2018-10-10] VITALS (10 sets, daily range): BP systolic 92–128; BP diastolic 46–72
[2018-10-10] MEDS: fentaNYL PF VIAL 100 MCG/2 ML VIAL IV PRN (05:12)
[2018-10-10] MEDS ORDERED: LIDOCAINE 1% 20 ML VIAL. ONE (05:49)
[2018-10-10] MEDS ORDERED: BUPIVACAINE MPF 0.5% 30 ML VIAL. ONE (05:49)
[2018-10-10] MEDS ORDERED: IV RINGERS,LACTATED 1000ML 1,000 ML IV SCH (06:43)
[2018-10-10] MEDS ORDERED: PROCHLORPERAZINE 10 MG/2 ML VIAL. IV PRN (06:45)
[2018-10-10] MEDS ORDERED: HYDROmorphone 2 MG/ML VIAL IV PRN (06:45)
[2018-10-10] MEDS ORDERED: fentaNYL PF VIAL 100 MCG/2 ML VIAL IV PRN ×2 (06:45)
[2018-10-10] MEDS ORDERED: ONDANSETRON PF 4 MG/2 ML VIAL. IV PRN (06:45)
[2018-10-10] MEDS ORDERED: LIDOCAINE 1% PF 2 ML VIAL. ID PRN (06:45)
[2018-10-10] MEDS ORDERED: MORPHINE SULFATE 2 MG/ML VIAL. IV PRN (06:45)
[2018-10-10] MEDS ORDERED: PROPOFOL 20 ML IV ONE (07:20)
[2018-10-10] MEDS ORDERED: fentaNYL PF VIAL 100 MCG/2 ML VIAL ONE (07:32)
[2018-10-10] MEDS ORDERED: NON FORMULARY ITEM (Polyethylene Glycol 3350 17 GM) PO PRN (08:00)
--- NOTE | 2018-10-10 08:05 | PDOC ---
Provider Note Provider Note [id number] MICK HOUGH MD October 10, 2018 08:05
--- NOTE | 2018-10-10 08:53 | HP ---
ADMIT DATE: CHIEF COMPLAINT: Dislocated hip. HISTORY OF PRESENT ILLNESS: This is an 87-year-old white female with a history of prior hip replacement, who came in with a dislocated hip that was unable to be relocated in the Emergency Room. Dr. Barahona plans to take her to surgery and replace that hip at this time and she is in the operating room at this moment. PAST MEDICAL HISTORY: Well documented in the old record. SOCIAL HISTORY: Unremarkable. , nonsmoker. FAMILY HISTORY: Unremarkable. REVIEW OF SYSTEMS: No other complaints. OBJECTIVE: ENT: Within normal limits. NECK: No masses. LUNGS: Coarse expiratory rhonchi. No wheezes. CARDIOVASCULAR: Regular rate. No murmur. ABDOMEN: Benign. EXTREMITIES: Unremarkable except for the externally rotated right hip. NEUROLOGIC: Physiologic. ASSESSMENT: Dislocation of the right hip prosthesis with stable chronic obstructive pulmonary disease and bronchiectasis. PLAN: As ordered. MICK HOUGH MD DR: DENIZ/miguel ángel JOB#: [id number] / [id number]
[2018-10-10] MEDS: ALBUTEROL SULFATE 2.5 MG/3 ML NEBU. NEB SCH ×4 (08:56→21:16)
--- NOTE | 2018-10-10 09:11 | PDOC2 ---
CONSULT Date of Consult Date of Consult DATE: 10/10/18 TIME: 09:08 Reason for Consult Reason for Consult: Right hip dislocation Referring Physician Referring Physician: Mesfin Identification/Chief Complaint Chief Complaint Right hip pain Source Source: Caregiver, Patient History of Present Illness Reason for Visit: Patient is a very pleasant 87-year-old female who is known to me for prior dislocations at her right total hip. She had the right total hip many years ago with Dr. Hinds at this facility. She does not have any intervening pain in between the episodes of dislocation. She tells me his most recent one was in she reached quickly for shopping cart when she was getting out of her car. She felt immediate pain and was unable to bear weight. She is complaining of right hip pain, does radiate down the leg but not into her feet. Her pain is worse with any attempted weightbearing. Is a little bit better at rest. She was admitted for care regarding her hip dislocation Past Medical History Cardiovascular: HTN Pulmonary: Other CENTRAL NERVOUS SYSTEM: Other GI: Constipation, Diverticulosis Heme/Onc: Other Hepatobiliary: No pertinent hx Musculoskeletal: Osteoarthritis Rheumatologic: No pertinent hx Infectious disease: No pertinent hx Renal/: No pertinent hx Endocrine: No pertinent hx, Osteoporosis Past Surgical History Past Surgical History: Appendectomy, Cholecystectomy, Total hip replacement, Total knee replacement, Other Family History Family History: Coronary Artery Disease Social History ALCOHOL: none Drugs: None Lives: with Family Current Problem List Problem List Problems Medical Problems: (1) Recurrent dislocation, right hip Status: Acute Current Medications Current Medications Current Medications Fentanyl Citrate (Fentanyl 2ml Vial) 50 mcg 1X ONCE IV Last administered on 10/09/18at 12:55; Start 10/09/18 at 13:00; Stop 10/09/18 at 13:01; Status DC Fentanyl Citrate (Fentanyl 2ml Vial) 100 mcg STK-MED ONCE .ROUTE ; Start 10/09/18 at 12:51; Stop 10/09/18 at 12:52; Status DC Sodium Chloride 1,000 ml @ 125 mls/hr 1X ONCE IV Last administered on 10/09/18at 13:57; Start 10/09/18 at 13:30; Stop 10/09/18 at 21:29; Status DC Propofol (Diprivan) 200 mg 1X ONCE IV Last administered on 10/09/18at 14:02; Start 10/09/18 at 13:30; Stop 10/09/18 at 13:31; Status DC Sodium Chloride 1,000 ml @ 100 mls/hr Q10H IV Last administered on 10/09/18at 22:27; Start 10/09/18 at 16:45 Non-Formulary Medication (Albuterol Sulfate (Albuterol Sulfate Neb Soln)) 1 vial QID NEB ; Start 10/09/18 at 21:00; Stop 10/09/18 at 21:00; Status DC Fentanyl Citrate (Fentanyl 2ml Vial) 50 mcg PRN Q2HR PRN IV PAIN Last administered on 10/10/18at 05:12; Start 10/09/18 at 18:15 Albuterol Sulfate (Ventolin Neb Soln) 2.5 mg RTQID NEB Last administered on 10/10/18at 08:56; Start 10/09/18 at 20:00 Polyethylene Glycol (miraLAX PACKET) 17 gm PRN DAILY PRN PO CONSTIPATION Last administered on 10/09/18at 21:48; Start 10/09/18 at 20:00 Ondansetron HCl (Zofran) 4 mg PRN Q6HRS PRN IV NAUSEA/VOMITING; Start 10/10/18 at 06:45; Stop 10/11/18 at 06:44 Fentanyl Citrate (Fentanyl 2ml Vial) 25 mcg PRN Q5MIN PRN IV MILD PAIN; Start 10/10/18 at 06:45; Stop 10/11/18 at 06:44 Fentanyl Citrate (Fentanyl 2ml Vial) 50 mcg PRN Q5MIN PRN IV MODERATE TO SEVERE PAIN; Start 10/10/18 at 06:45; Stop 10/11/18 at 06:44 Morphine Sulfate (Morphine Sulfate) 1 mg PRN Q10MIN PRN IV SEVERE PAIN; Start 10/10/18 at 06:45; Stop 10/11/18 at 06:44 Ringer's Solution 1,000 ml @ 30 mls/hr Q24H IV ; Start 10/10/18 at 06:43; Stop 10/10/18 at 18:42 Lidocaine HCl (Xylocaine-Mpf 1% 2ml Vial) 2 ml 1X PRN PRN ID IV START; Start 10/10/18 at 06:45; Stop 10/11/18 at 06:44 Hydromorphone HCl (Dilaudid) 0.5 mg PRN Q10MIN PRN IV SEV PAIN, Second choice; Start 10/10/18 at 06:45; Stop 10/11/18 at 06:44 Prochlorperazine Edisylate (Compazine) 5 mg PACU PRN PRN IV NAUSEA, MRX1; Start 10/10/18 at 06:45; Stop 10/11/18 at 06:44 Lidocaine HCl 20 ml STK-MED ONCE .ROUTE ; Start 10/10/18 at 05:49; Stop 10/10/18 at 06:50; Status DC Bupivacaine HCl (Sensorcaine Mpf 0.5%) 30 ml STK-MED ONCE .ROUTE ; Start 10/10/18 at 05:49; Stop 10/10/18 at 06:50; Status DC Propofol 20 ml @ As Directed STK-MED ONCE IV ; Start 10/10/18 at 07:20; Stop 10/10/18 at 07:21; Status DC Fentanyl Citrate (Fentanyl 2ml Vial) 100 mcg STK-MED ONCE .ROUTE ; Start 10/10/18 at 07:32; Stop 10/10/18 at 07:33; Status DC Triamterene/HCTZ (Maxzide 37.5/ 25mg) 1 tab QMWF PO ; Start 10/11/18 at 16:00 Montelukast Sodium (Singulair) 10 mg QHS PO ; Start 10/10/18 at 21:00 Non-Formulary Medication (Polyethylene Glycol 3350 ) 17 gm PRN DAILY PRN PO CONSTIPATION 1ST CHOICE; Start 10/10/18 at 08:00; Status UNV Active Scripts Active Polyethylene Glycol 3350 17 Gm Powd.pack 17 Gm PO PRN DAILY PRN 30 Days Montelukast Sodium Tablet (Montelukast Sodium) 10 Mg Tablet 10 Mg PO QHS 30 Days Reported Maxzide 37.5 Mg-25 Mg Tablet (Triamterene/Hydrochlorothiazid) 1 Each Tablet 1 Each PO QMWF Calcium + Vitamin D Tablet (Calcium Carbonate/Vitamin D3) 1 Each Tablet 500 Mg PO BID Acetaminophen 500 Mg Tablet 1 Tab PO BID PRN Multivitamins (Multivitamin) 1 Each Tablet 1 Tab PO DAILY Flonase Allergy Relief (Fluticasone Propionate) 9.9 Ml [place].susp 2 Sprays NS DAILY Fosamax (Alendronate Sodium) 70 Mg Tablet 1 Tab PO WEEKLY Albuterol Sulfate Neb Soln (Albuterol Sulfate) 0.63 Mg/3 Ml Vial.neb 1 Vial NEB QID Spiriva (Tiotropium [place]) 18 Mcg Cap.w.dev 1 Cap IH DAILY Allergies Allergies: Coded Allergies: No Known Drug Allergies (Unverified , 07/05/18) ROS General: No: Chills, Night Sweats, Fatigue, Malaise, Appetite, Other PSYCHOLOGICAL ROS: No: Anxiety, Behavioral Disorder, Concentration difficultie, Decreased libido, Depression, Disorientation, Hallucinations, Hostility, Irritablity, Memory difficulties, Mood Swings, Obsessive thoughts, Physical abuse, Sexual abuse, Sleep disturbances, Suicidal ideation, Other Eyes: No Blurry vision, No Decreased vision, No Double vision, No Dry eyes, No Excessive tearing, No Eye Pain, No Itchy Eyes, No Loss of vision, No Photoph obia, No Scotomata, No Uses contacts, No Uses glasses, No Other HEENT: No: Heacaches, Visual Changes, Hearing change, Nasal congestion, Nasal discharge, Oral lesions, Sinus pain, Sore Throat, Epistaxis, Sneezing, Snoring, Tinnitus, Vertigo, Vocal changes, Other ALLERGY AND IMMUNOLOGY: No: Hives, Insect Bite Sensitivity, Itchy/Watery Eyes, Nasal Congestion, Post Nasal Drip, Seasonal Allergies, Other Hematological and Lymphatic: No: Bleeding Problems, Blood Clots, Blood Transfusions, Brusing, Night Sweats, Pallor, Swollen Lymph Nodes, Other Respiratory: No: Cough, Hemoptysis, Orthopnea, Pleuritic Pain, Shortness of breath, SOB with excertion, Sputum Changes, Stridor, Tachypnea, Wheezing, Other Cardiovascular: No Chest Pain, No Palpitations, No Orthopnea, No Paroxysmal Noc. Dyspnea, No Edema, No Lt Headedness, No Other Gastrointestinal: No Nausea, No Vomiting, No Abdominal Pain, No Diarrhea, No Constipation, No Melena, No Hematochezia, No Other Genitourinary: No Dysuria, No Frequency, No Incontinence, No Hematuria, No Retention, No Discharge, No Urgency, No Pain, No Flank Pain, No Other, No , No , No , No , No , No , No Musculoskeletal: Yes Joint Pain, Yes Joint Stiffness Neurological: No Behavorial Changes, No Bowel/Bladder ControlChng, No Confusion, No Dizziness, No Gait Disturbance, No Headaches, No Impaired Coord/balance, No Memory Loss, No Numbness/Tingling, No Seizures, No Speech Problems, No Tremors, No Visual Changes, No Weakness, No Other Skin: No Dry Skin, No Eczema, No Hair Changes, No Lumps, No Mole Changes, No Mottling, No Nail Changes, No Pruritus, No Rash, No Skin Lesion Changes, No Other, No Acne Physical Exam General: Alert, Oriented X3, mild distress HEENT: Atraumatic, EOMI Lungs: Other (respirations are unlabored with symmetric chest rise) Heart: Regular rate Abdomen: Soft, No tenderness Extremities: No edema, Normal pulses Neuro: Normal speech, Strength at 5/5 X4 ext, Sensation intact Psych/Mental Status: Mental status NL, Mood NL MUSCULOSKELETAL: Other (she has gross deformity at her right lower extremity, this held flexed at the hip, abducted and externally rotated. She can wiggle her toes distally.) Vitals VITALS Vital Signs Date Time Temp Pulse Resp B/P (MAP) Pulse Ox O2 Delivery O2 Flow Rate FiO2 10/10/18 08:57 96 Nasal Cannula 2.0 10/10/18 08:43 98.4 68 22 125/63 98.4 Labs Labs Laboratory Tests Test 10/09/18 13:10 White Blood Count 4.6 x10^3/uL (4.0-11.0) Red Blood Count 3.51 x10^6/uL (3.50-5.40) Hemoglobin 11.2 g/dL (12.0-15.5) Hematocrit 33.8 % (36.0-47.0) Mean Corpuscular Volume 96 fL (79-100) Mean Corpuscular Hemoglobin 32 pg (25-35) Mean Corpuscular Hemoglobin Concent 33 g/dL (31-37) Red Cell Distribution Width 14.6 % (11.5-14.5) Platelet Count 239 x10^3/uL (140-400) Neutrophils (%) (Auto) 91 % (31-73) Lymphocytes (%) (Auto) 7 % (24-48) Monocytes (%) (Auto) 2 % (0-9) Eosinophils (%) (Auto) 0 % (0-3) Basophils (%) (Auto) 0 % (0-3) Neutrophils # (Auto) 4.2 x10^3uL (1.8-7.7) Lymphocytes # (Auto) 0.3 x10^3/uL (1.0-4.8) Monocytes # (Auto) 0.1 x10^3/uL (0.0-1.1) Eosinophils # (Auto) 0.0 x10^3/uL (0.0-0.7) Basophils # (Auto) 0.0 x10^3/uL (0.0-0.2) Segmented Neutrophils % 94 % (35-66) Lymphocytes % 6 % (24-48) Platelet Estimate Adequate (ADEQUATE) Sodium Level 139 mmol/L (136-145) Potassium Level 3.9 mmol/L (3.5-5.1) Chloride Level 101 mmol/L (98-107) Carbon Dioxide Level 34 mmol/L (21-32) Anion Gap 4 (6-14) Blood Urea Nitrogen 19 mg/dL (7-20) Creatinine 0.7 mg/dL (0.6-1.0) Estimated GFR (Cockcroft-Gault) 79.5 BUN/Creatinine Ratio 27 (6-20) Glucose Level 142 mg/dL (70-99) Calcium Level 8.9 mg/dL (8.5-10.1) Total Bilirubin 0.3 mg/dL (0.2-1.0) Aspartate Amino Transf (AST/SGOT) 19 U/L (15-37) Alanine Aminotransferase (ALT/SGPT) 23 U/L (14-59) Alkaline Phosphatase 48 U/L (46-116) Total Protein 6.5 g/dL (6.4-8.2) Albumin 3.4 g/dL (3.4-5.0) Albumin/Globulin Ratio 1.1 (1.0-1.7) Laboratory Tests Test 10/09/18 13:10 White Blood Count 4.6 x10^3/uL (4.0-11.0) Red Blood Count 3.51 x10^6/uL (3.50-5.40) Hemoglobin 11.2 g/dL (12.0-15.5) Hematocrit 33.8 % (36.0-47.0) Mean Corpuscular Volume 96 fL (79-100) Mean Corpuscular Hemoglobin 32 pg (25-35) Mean Corpuscular Hemoglobin Concent 33 g/dL (31-37) Red Cell Distribution Width 14.6 % (11.5-14.5) Platelet Count 239 x10^3/uL (140-400) Neutrophils (%) (Auto) 91 % (31-73) Lymphocytes (%) (Auto) 7 % (24-48) Monocytes (%) (Auto) 2 % (0-9) Eosinophils (%) (Auto) 0 % (0-3) Basophils (%) (Auto) 0 % (0-3) Neutrophils # (Auto) 4.2 x10^3uL (1.8-7.7) Lymphocytes # (Auto) 0.3 x10^3/uL (1.0-4.8) Monocytes # (Auto) 0.1 x10^3/uL (0.0-1.1) Eosinophils # (Auto) 0.0 x10^3/uL (0.0-0.7) Basophils # (Auto) 0.0 x10^3/uL (0.0-0.2) Segmented Neutrophils % 94 % (35-66) Lymphocytes % 6 % (24-48) Platelet Estimate Adequate (ADEQUATE) Sodium Level 139 mmol/L (136-145) Potassium Level 3.9 mmol/L (3.5-5.1) Chloride Level 101 mmol/L (98-107) Carbon Dioxide Level 34 mmol/L (21-32) Anion Gap 4 (6-14) Blood Urea Nitrogen 19 mg/dL (7-20) Creatinine 0.7 mg/dL (0.6-1.0) Estimated GFR (Cockcroft-Gault) 79.5 BUN/Creatinine Ratio 27 (6-20) Glucose Level 142 mg/dL (70-99) Calcium Level 8.9 mg/dL (8.5-10.1) Total Bilirubin 0.3 mg/dL (0.2-1.0) Aspartate Amino Transf (AST/SGOT) 19 U/L (15-37) Alanine Aminotransferase (ALT/SGPT) 23 U/L (14-59) Alkaline Phosphatase 48 U/L (46-116) Total Protein 6.5 g/dL (6.4-8.2) Albumin 3.4 g/dL (3.4-5.0) Albumin/Globulin Ratio 1.1 (1.0-1.7) Images Images X-rays were interpreted by myself. Report was also reviewed. She has an anterior right total hip dislocation. No sign of loosening or hardware complication. Assessment/Plan Assessment/Plan We will plan on proceeding the operating room for closed reduction under sedation with anesthesia. I discussed the risks, benefits, alternatives with her son and they wished to proceed. JONATAN ZAMBRANO II, MD October 10, 2018 09:11
--- NOTE | 2018-10-10 09:15 | PDOC4 ---
Operative Note Operative Note Date of procedure: 10/10/2018 Surgeon: Tucker Zambrano Asst.: Karel Garduno, advanced practice registered nurse who was necessary to facilitate the reduction and assist during this see journey. Anesthesia: Gen. Preoperative diagnosis: Anterior right total hip arthroplasty dislocation Postoperative diagnosis: Same Procedure performed: Closed reduction right total hip arthroplasty Findings: Hip was stable to flexion adduction and external rotation, about 90 and 30 of internal rotation. Her hip was stable to extension and external rotation to about 30 as well. Reason for procedure: Please see my consult note for details regarding this. We had discussed proceeding with the closed reduction of her total hip arthroplasty dislocation her and her family wished to proceed. Description of procedure: Patient was greeted in the preoperative area where the correct extremity was verified and marked. She is taken back to the operative suite and transferred gently supine to the operating table. She underwent successful induction of conscious sedation monitored by the anesthesiology team. An senior office support assistant sosa, my nurse practitioner, pulled counter traction while I flexed her hip and externally rotated it to disengage it while pulling longitudinal traction followed by internal rotation. Took a couple of times but we were able to get it, we confirmed successful reduction under biplanar fluoroscopy. Patient was then awakened from anesthesia. She tolerated this well. Postoperative plan is to admit her to the floor. We will order PT and OT. I did place her into an abduction pillow. She can be discharged after teaching from PT and OT. I will follow along with her while she is inpatient. TUCKER ZAMBRANO II, MD October 10, 2018 09:15
--- NOTE | 2018-10-10 11:37 | NUR ---
SW following for discharge planning. Discussed with RN, pt is from home alone, has son who is involved. Pt had surgery this morning. PT/OT has been ordered. SW will continue to follow for any discharge planning needs.
[2018-10-10] MEDS: IV NORMAL SALINE 1000ML BAG 1,000 ML IV SCH (12:45)
[2018-10-10] MEDS ORDERED: HYDROcodone/APAP 5/325MG 1 TAB TABLET PO PRN (14:45)
[2018-10-10] MEDS: POLYETHYLENE GLYCOL 3350 17 GM PACKET. PO PRN (20:12)
[2018-10-10] MEDS ORDERED: MONTELUKAST SODIUM 10 MG TABLET. PO SCH (21:00)
[2018-10-11 02:59] VITALS: BP 106/54
[2018-10-11 07:00] VITALS: BP 95/59
[2018-10-11] MEDS: ALBUTEROL SULFATE 2.5 MG/3 ML NEBU. NEB SCH ×2 (07:43→11:27)
--- NOTE | 2018-10-11 07:59 | PDOC ---
Provider Note Provider Note [id number] MICK HOUGH MD October 11, 2018 07:59
--- NOTE | 2018-10-11 10:11 | NUR ---
SW following for discharge planning. Discussed with RN, pt needing home health at discharge. SW met with pt, pt would like [facility] as she has had it in the past. Ella Napier RN to meet with pt. Pt ready for discharge.
--- NOTE | 2018-10-11 10:55 | PDOC ---
ORTHO PROGRESS NOTES Subjective Patient comfortable, no complaints. Asking about HH for rehab Vitals Vital Signs Date Time Temp Pulse Resp B/P (MAP) Pulse Ox O2 Delivery O2 Flow Rate FiO2 10/11/18 07:45 90 Room Air 10/11/18 07:00 98.8 73 18 95/59 (71) 2.0 98.8 Labs Laboratory Tests Test 10/09/18 13:10 White Blood Count 4.6 x10^3/uL (4.0-11.0) Red Blood Count 3.51 x10^6/uL (3.50-5.40) Hemoglobin 11.2 g/dL (12.0-15.5) Hematocrit 33.8 % (36.0-47.0) Mean Corpuscular Volume 96 fL (79-100) Mean Corpuscular Hemoglobin 32 pg (25-35) Mean Corpuscular Hemoglobin Concent 33 g/dL (31-37) Red Cell Distribution Width 14.6 % (11.5-14.5) Platelet Count 239 x10^3/uL (140-400) Neutrophils (%) (Auto) 91 % (31-73) Lymphocytes (%) (Auto) 7 % (24-48) Monocytes (%) (Auto) 2 % (0-9) Eosinophils (%) (Auto) 0 % (0-3) Basophils (%) (Auto) 0 % (0-3) Neutrophils # (Auto) 4.2 x10^3uL (1.8-7.7) Lymphocytes # (Auto) 0.3 x10^3/uL (1.0-4.8) Monocytes # (Auto) 0.1 x10^3/uL (0.0-1.1) Eosinophils # (Auto) 0.0 x10^3/uL (0.0-0.7) Basophils # (Auto) 0.0 x10^3/uL (0.0-0.2) Segmented Neutrophils % 94 % (35-66) Lymphocytes % 6 % (24-48) Platelet Estimate Adequate (ADEQUATE) Sodium Level 139 mmol/L (136-145) Potassium Level 3.9 mmol/L (3.5-5.1) Chloride Level 101 mmol/L (98-107) Carbon Dioxide Level 34 mmol/L (21-32) Anion Gap 4 (6-14) Blood Urea Nitrogen 19 mg/dL (7-20) Creatinine 0.7 mg/dL (0.6-1.0) Estimated GFR (Cockcroft-Gault) 79.5 BUN/Creatinine Ratio 27 (6-20) Glucose Level 142 mg/dL (70-99) Calcium Level 8.9 mg/dL (8.5-10.1) Total Bilirubin 0.3 mg/dL (0.2-1.0) Aspartate Amino Transf (AST/SGOT) 19 U/L (15-37) Alanine Aminotransferase (ALT/SGPT) 23 U/L (14-59) Alkaline Phosphatase 48 U/L (46-116) Total Protein 6.5 g/dL (6.4-8.2) Albumin 3.4 g/dL (3.4-5.0) Albumin/Globulin Ratio 1.1 (1.0-1.7) Notes A and A normal m/s in LE sitting at edge of bed Assessment and Plan Ok to go home per Primary f/u Ortho in a couple weeks JONATAN ZAMBRANO II, MD October 11, 2018 10:55
[2018-10-11 11:00] VITALS: BP 99/56
--- NOTE | 2018-10-11 12:55 | NUR ---
Pt discharged home with services for PT/OT eval and treat. By w/c to hospital entrance, accompanied by son. Script for ortho device provided to Pt's son to obtain needed device from [facility]. Discharge education and information provided to Pt and son, both parties verbalized understanding and had no further questions. Pt able to ambulate with SBA, no changes from previous assessment.
--- NOTE | 2018-10-11 14:36 | DS ---
DATE OF DISCHARGE: 10/11/2018 HOSPITAL SUMMARY: An 87-year-old white female came in with right hip dislocation sometime after a hip replacement. Dr. Barahona took her to the operating room and performed a reduction under general anesthesia and she has done well after that. Laboratory studies unremarkable and she is able to be followed as an outpatient at this point after seen by Orthopedics. FINAL DIAGNOSIS: Dislocation of right hip prosthesis. OPERATIONS AND PROCEDURES: Operative reduction of hip dislocation. COMPLICATIONS: None. CONSULTATIONS: Dr. Barahona. DISPOSITION: All home meds remain the same. Office follow up with him with prosthesis in place to assist in dislocation reduction. PROGNOSIS: Good. MICK HOUGH MD DR: DENIZ/miguel ángel JOB#: [id number] / [id number]
[2018-10-11] MEDS ORDERED: TRIAMTERENE/HCTZ 37.5/25MG TABLET. PO SCH (16:00)
== END 2018-10-11 12:55 | disposition home health service (06) | DRG 560 ==
LOC: ER 12:33 → 4 NORTH 14:33 → ER 15:30
PROVIDERS: ADMIT Family Medicine; ATTEND Family Medicine
PROC: 0SW9XJZ Revision of Synthetic Substitute in Right Hip Joint, External Approach (ICD-10-PCS; principal; 2018-10-10 07:30)
DX: T84.020A Dislocation of internal right hip prosthesis, initial encounter (principal); J96.11 Chronic respiratory failure with hypoxia; I10 Essential (primary) hypertension; J44.9 Chronic obstructive pulmonary disease, unspecified; M81.0 Age-related osteoporosis without current pathological fracture; R09.02 Hypoxemia; M19.90 Unspecified osteoarthritis, unspecified site; Z96.653 Presence of artificial knee joint, bilateral; Y79.2 Prosthetic and other implants, materials and accessory orthopedic devices associated with adverse incidents; Y92.89 Other specified places as the place of occurrence of the external cause; Z90.710 Acquired absence of both cervix and uterus; Z90.49 Acquired absence of other specified parts of digestive tract; Z87.11 Personal history of peptic ulcer disease; Z98.49 Cataract extraction status, unspecified eye; Z82.49 Family history of ischemic heart disease and other diseases of the circulatory system; J47.9 Bronchiectasis, uncomplicated
CPT/HCPCS: 27250; 36415; 51701; 73502; 76000; 80053; 85007; 85025; 94640; 94760; 96360; 96361; J2704; J3010; J3490; J7030; J7613; 97535; 99285-25

== ENCOUNTER → 2019-01-29 | Outpatient (CLI) | payer BC ==
[~2019-01-29] MED LIST changes: +CONTRAST GIVEN. MC PRN; +IOHEXOL 240 MG/ML 50ML VIAL. PO ONE; +IOHEXOL 300 MG/ML 100ML VIAL. IV ONE; +MONT10TA49 PO; -MONT10TA9 PO
--- NOTE | 2019-01-29 14:07 | RAD ---
CT of the abdomen and pelvis without comparison for left lower quadrant abdominal pain for 8 days. TECHNIQUE: Contiguous helical 5 mm axial images are obtained from the apex of diaphragm to the pelvic floor. Sagittal and coronal reformations are evaluated. FINDINGS: There is left ventricular left atrial enlargement resulting in moderate cardiomegaly. There are pleural parenchymal calcifications in the left lung base, and there is redemonstration of stable appearing hyperdense tubular opacities within the left posterior lower lung, perhaps due to chronic mucoid impaction. These are stable since at least November 2017. There is a small stable cyst in the left lobe of the liver, unchanged from 09/27/2013. No other hepatic parenchymal abnormalities. Mild pancreatic atrophy. Bilateral adrenal glands are grossly unremarkable. Spleen is normal. Gallbladder is grossly unremarkable. There are parapelvic cysts involving the left kidney which are stable. No hydronephrosis or focal parenchymal abnormality involving either kidney. No hydroureter. No pathologic lymphadenopathy is seen. No free or loculated fluid collections are evident. There is inhomogeneous opacification of large and small bowel with no areas of gross bowel wall thickening or bowel dilatation. The appendix is not identified. Pelvic organs including much of the urinary bladder are largely obscured by artifact from 2 hip prostheses. There are severe multilevel degenerative changes throughout the lumbar spine. No suspicious osteoblastic or osteolytic bone lesions. There is moderate multifocal atherosclerosis of the aortoiliac arteries as well as the visceral arteries. There is mild to moderate ostial stenosis of the SMA, bilateral renal arteries, and ALISTAIR. No severe stenoses or occlusions are evident. IMPRESSION: 1. Stable cardiomegaly. 2. Stable tubular opacities in the left lung base, likely due to benign chronically impacted peripheral bronchi. 3. Stable simple cysts involving the left lobe of liver. 4. Stable parapelvic cysts involving the left kidney. 5. Multifocal atherosclerosis with no severe stenoses or occlusions identified. 6. Multilevel degenerative disc disease, severe. 7. No acute intra-abdominal findings. Evaluation of the pelvic organs is limited by artifact from adjacent hip prostheses. PQRS Compliance Statement: One or more of the following individualized dose reduction techniques were utilized for this examination: 1. Automated exposure control 2. Adjustment of the mA and/or kV according to patient size 3. Use of iterative reconstruction technique Electronically signed by: Mau Baron MD (01/29/2019 2:04 PM) [facility]
== END | disposition home or self-care (01) ==
LOC: CT 11:36
PROVIDERS: ATTEND Family Medicine
DX: K76.89 Other specified diseases of liver (principal); I11.9 Hypertensive heart disease without heart failure; J98.4 Other disorders of lung; K86.89 Other specified diseases of pancreas; N94.89 Other specified conditions associated with female genital organs and menstrual cycle; I70.0 Atherosclerosis of aorta; I70.8 Atherosclerosis of other arteries; M51.37 Other intervertebral disc degeneration, lumbosacral region; J44.9 Chronic obstructive pulmonary disease, unspecified; Z90.710 Acquired absence of both cervix and uterus; Z90.49 Acquired absence of other specified parts of digestive tract
CPT/HCPCS: 74177; Q9966; Q9967

== ENCOUNTER → 2019-04-27 | Outpatient (CLI) | payer BC ==
[~2019-04-27] MED LIST changes: -CONTRAST GIVEN. MC PRN; -IOHEXOL 240 MG/ML 50ML VIAL. PO ONE; -IOHEXOL 300 MG/ML 100ML VIAL. IV ONE
--- NOTE | 2019-04-27 16:20 | KCIC ---
EXAM: Dual energy x-ray absorptiometry (DEXA). HISTORY: Postmenopausal female presents for osteoporosis screening. COMPARISON: 12/17/2014. TECHNIQUE: Dual energy x-ray absorptiometry of the lumbar spine and left forearm was performed. Calculation of bone mineral density based on standard deviations above or below the expected young adult normal value (T-score) was completed. FINDINGS: The average bone mineral density in the second through fourth lumbar vertebrae is 1.069 g/cmxcm, corresponding with a T-score of 0.2. There has been a 12.3% increase in density of the lumbar spine compared to the prior study. The average total bone mineral density in the left radius is 0.434 g/cmxcm, corresponding with a T-score of -2.6. There has been a 2.9% decrease in density of the left forearm compared to the prior study. IMPRESSION: 1. Osteoporosis measured at the left forearm. 2. Normal bone mineral density measured at the lumbar spine. Note: Definitions established by the World Health Organization: 1. Normal: T-score is -1.0 or above. 2. Osteopenia: T-score is between -1.0 and -2.5 . 3. Osteoporosis: T-score is -2.5 or below. Electronically signed by: Shadia Whitney MD (04/27/2019 4:16 PM) [facility]
== END | disposition home or self-care (01) ==
LOC: KCIC DEXA 12:06
PROVIDERS: ATTEND Family Medicine
DX: M81.0 Age-related osteoporosis without current pathological fracture (principal); N95.9 Unspecified menopausal and perimenopausal disorder
CPT/HCPCS: 77080; 77081

== ENCOUNTER → 2019-08-02 | Outpatient (CLI) | payer BC ==
--- NOTE | 2019-08-02 17:09 | KCIC ---
CHEST PA LATERAL History: Abnormal breath sounds, congestion Comparison: 04/07/2019 two-view chest x-ray exam. Findings: Frontal and lateral views of chest were obtained. Heart size is borderline enlarged. No pneumothorax. Bony vasculature is congested is noted. Left lung volume is smaller in size as compared to the right similar to the prior exam. Left basilar scarring noted. No definite or significant pleural effusion. IMPRESSION: Pulmonary vascular congestion. No focal consolidation. Interstitial thickening of the lung montano is similar to prior exams. Electronically signed by: Familia Ellison MD (08/02/2019 5:06 PM) [id number]
== END ==
LOC: KCIC 14:35
PROVIDERS: ATTEND Internal Medicine
DX: J92.9 Pleural plaque without asbestos (principal); R06.89 Other abnormalities of breathing; J98.4 Other disorders of lung; R09.89 Other specified symptoms and signs involving the circulatory and respiratory systems
CPT/HCPCS: 71046

== ENCOUNTER 2019-10-22 07:01 | Emergency (ER) | payer BC ==
[~2019-10-22] VITALS: Ht 167.6 cm; Wt 72.0 kg
[2019-10-22 07:11] VITALS: BP 159/74
--- NOTE | 2019-10-22 08:00 | PHYS DOC ---
Past Medical History Past Medical History: COPD, Hypertension, Lung Disease, Pneumonia, Other Additional Past Medical Histor: STOMACH ULCERS,BRONCHIECTASIS, Osteoporosis Past Surgical History: Appendectomy, Hip Replacement, Hysterectomy, Knee Replacement, Tonsillectomy, Other Additional Past Surgical Histo: Partial L LOBECTOMY,BLADDER,CATARACT,RECTOCELE, RT KNEE, Bilateral Hip Smoking Status: Never Smoker Alcohol Use: None Drug Use: None Adult General Chief Complaint Chief Complaint: HEMORRHOIDS HPI HPI Patient is a 88 year old female with history of hemorrhoids who presents with increased bright red blood hemorrhoid bleeding since yesterday. Patient denies dizziness lightheadedness or rectal pain. Patient reports mild abdominal cramping she attributes to constipation. Currently on MiraLAX. Patient is not on anticoagulation therapy. No dizziness lightheadedness chest pain or increased shortness of breath. Patient has COPD and wears oxygen at baseline. Patient's previously been evaluated for her hemorrhoids by a general surgeon. She does not recall his name or recommendations, but has been using hemorrhoid cream and taking MiraLAX. Patient lives at home with her who is in poor health. Her PCP is Dr. Ibrahima Toure [] Review of Systems Review of Systems ROS as per HPI All other systems were reviewed and found to be within normal limits, except as documented in this note. Allergies Allergies Allergies Coded Allergies Type Severity Reaction Last Updated Verified No Known Drug Allergies 07/05/18 No Physical Exam Physical Exam Constitutional: Well developed, well nourished, no acute distress, non-toxic a ppearance. [] HENT: Normocephalic, atraumatic, bilateral external ears normal, oropharynx moist, nose normal. [] Eyes: PERRLA, EOMI, conjunctiva normal. [] Neck: Normal range of motion, no tenderness, supple, no stridor. [] Cardiovascular:Heart rate regular rhythm, no murmur [] Abdomina: No tenderness, rectal, non-thrombosed external hemorrhoids with bright red blood staining to anus. No active bleeding appreciated. [] Neurologic: Alert and oriented, normal motor function, normal sensory function, no focal deficits noted. [] Psychologic: Affect normal, judgement normal, mood normal. [] Current Patient Data Vital Signs Vital Signs Date Time Temp Pulse Resp B/P (MAP) Pulse Ox O2 Delivery O2 Flow Rate FiO2 10/22/19 07:11 98.0 78 18 159/74 (102) 100 Nasal Cannula 2.0 98.0 EKG EKG [] Radiology/Procedures Radiology/Procedures [] Course & Med Decision Making Course & Med Decision Making Pertinent Labs and Imaging studies reviewed. (See chart for details) [No active hemorrhoid bleeding in ED. VS stable. Patient to f/u with gen sx in outpatient clinic. ] Dragon Disclaimer Dragon Disclaimer This electronic medical record was generated, in whole or in part, using a voice recognition dictation system. Departure Departure Impression: Primary Impression: Bleeding external hemorrhoids Disposition: ADMITTED INPATIENT Condition: STABLE Referrals: IBRAHIMA TOURE MD (PCP) Patient Instructions: Hemorrhoids, [id number] Additional Instructions: Please contact Dr. Toure's office this morning to coordinate general surgical follow up for treatment of bleeding hemorrhoids. JOSIAH ROY DO October 22, 2019 08:00
== END 2019-10-22 09:07 | disposition home or self-care (01) ==
LOC: ER 07:01
DX: K64.4 Residual hemorrhoidal skin tags (principal); J44.9 Chronic obstructive pulmonary disease, unspecified; I10 Essential (primary) hypertension; Z90.89 Acquired absence of other organs; Z90.710 Acquired absence of both cervix and uterus
CPT/HCPCS: 99283

== ENCOUNTER → 2019-10-30 | Outpatient (CLI) | payer BC ==
[2019-10-22 07:11] VITALS: BP 159/74
[~2019-10-30] MED LIST changes: +MULT-445 PO; -MULT1TAB52 PO; +[UNRECOGNIZED DRUG - CODE] IV
== END | disposition home or self-care (01) ==
LOC: LAB 12:15
PROVIDERS: ATTEND Internal Medicine Gastroenterology
DX: Z11.59 Encounter for screening for other viral diseases (principal)
CPT/HCPCS: C9803; U0003; 36415

== ENCOUNTER → 2019-11-02 | Day surgery (SDC) | payer BC ==
[~2019-11-02] MED LIST changes: +HYDROmorphone 2 MG/ML VIAL IV PRN; +IV RINGERS,LACTATED 1000ML 1,000 ML IV SCH; +MORPHINE SULFATE 2 MG/ML VIAL. IV PRN; -MULT-445 PO; +MULT1TAB52 PO; +ONDANSETRON PF 4 MG/2 ML VIAL. IV PRN; +PROCHLORPERAZINE 10 MG/2 ML VIAL. IV PRN; +PROPOFOL 10 MG/ML (20ML) VIAL. IV ONE; +fentaNYL PF VIAL 100 MCG/2 ML VIAL IV PRN
--- NOTE | 2019-11-02 09:08 | HP ---
ADMIT DATE: 11/02/2019 UPDATE HISTORY AND PHYSICAL REFERRING PHYSICIAN: Ibrahima Toure MD HISTORY OF PRESENT ILLNESS: An 89-year-old female with past medical history, seen for intermittent rectal bleeding with and without defecation. Weight and appetite have been stable, but the bleeding has persisted. Family history is positive for colon cancer with her father and polyps with herself and she was previously seen in March. At that time, elected not to pursue an endoscopy due to her age and medical therapy has been pursued without resolution of symptoms and she is here today for further evaluation. PAST MEDICAL HISTORY: Arthritis, asthma, colonic polyps, COPD, hypertension. ALLERGIES: None. MEDICATIONS: Include albuterol, Fosamax, calcium, Flonase, montelukast, multivitamins, polyethylene glycol, Spiriva, Maxzide. FAMILY AND SOCIAL HISTORY: Significant for colon cancer with her father, hypertension. PAST SURGICAL HISTORY: Appendectomy, hysterectomy, eye surgery, joint replacement, lung surgery and tonsillectomy. REVIEW OF SYSTEMS: As per records. PHYSICAL EXAMINATION: GENERAL: Reveals a well-nourished, well-developed female who is alert, cooperative, in no acute distress. VITAL SIGNS: Temperature 98.6, pulse 72, respirations 20. LUNGS: Clear. CARDIOVASCULAR: Reveals an S1, S2 without S3, S4 or appreciable murmur. ABDOMEN: Reveals a soft abdomen, normal bowel sounds, without appreciable hepatosplenomegaly. EXTREMITIES: Reveal no cyanosis, clubbing or edema. IMPRESSION: Rectal bleeding, etiology is to be determined. Differential includes colonic polyps, malignancy, ischemic colitis, inflammatory bowel disease, fissures and/or hemorrhoids. Risks and benefits of procedure including risk of hemorrhage and perforation requiring operation were discussed. The patient is willing to proceed at this time. MEGHANA BARRIOS MD DR: JUSTINA/miguel ángel JOB#: [id number] / [id number]
[2019-11-02 09:55] VITALS: BP 121/63
== END | disposition home or self-care (01) ==
LOC: ENDOS 07:55
PROVIDERS: ATTEND Internal Medicine Gastroenterology
DX: K62.5 Hemorrhage of anus and rectum (principal); K64.0 First degree hemorrhoids; K57.30 Diverticulosis of large intestine without perforation or abscess without bleeding; M19.90 Unspecified osteoarthritis, unspecified site; J44.9 Chronic obstructive pulmonary disease, unspecified; I10 Essential (primary) hypertension; Z86.010 Personal history of colon polyps; Z80.0 Family history of malignant neoplasm of digestive organs; Z79.899 Other long term (current) drug therapy; Z82.49 Family history of ischemic heart disease and other diseases of the circulatory system; Z90.49 Acquired absence of other specified parts of digestive tract; Z90.710 Acquired absence of both cervix and uterus; Z98.890 Other specified postprocedural states
CPT/HCPCS: 45378; J2704

== ENCOUNTER → 2020-02-29 | Outpatient (CLI) | payer BC ==
[2019-11-02 09:55] VITALS: BP 121/63
[~2020-02-29] MED LIST changes: -HYDROmorphone 2 MG/ML VIAL IV PRN; -IV RINGERS,LACTATED 1000ML 1,000 ML IV SCH; -MORPHINE SULFATE 2 MG/ML VIAL. IV PRN; +MULT-445 PO; -MULT1TAB52 PO; -ONDANSETRON PF 4 MG/2 ML VIAL. IV PRN; -PROCHLORPERAZINE 10 MG/2 ML VIAL. IV PRN; -PROPOFOL 10 MG/ML (20ML) VIAL. IV ONE; -fentaNYL PF VIAL 100 MCG/2 ML VIAL IV PRN
--- NOTE | 2020-02-29 14:10 | KCIC ---
Noncontrast CT scan of the chest compared to CT angiography of the chest dated 09/19/2019 for COPD, pulmonary infiltrates. TECHNIQUE: Contiguous axial CT images are obtained through the chest. Sagittal and coronal reformations are evaluated. FINDINGS: The previously described central lobular peripheral nodules in the right lower lung base have significantly improved, though a few small nodules persist. Endobronchial impaction in the right lower lobe is improved as well. Chronic atelectasis and endobronchial impaction of the left lower lung is unchanged. Bilateral upper lobes are well aerated. There is bronchiectasis in the middle lobe peripherally, without mucus impaction. This is stable. There are calcified granulomas in the lungs. There is pleural thickening with calcifications throughout the left lower lung, which could reflect sequelae of prior pleural injury or history of asbestos exposure. Stable serpiginous calcifications throughout the right pericardial fat pad. Cardiomegaly is redemonstrated. Coronary calcifications are seen in multiple distributions. Main and bilateral central pulmonary artery enlargement is again evident. Evaluation of the vascular structures is limited by lack of IV contrast. There are a few stable appearing mediastinal lymph nodes, with no new adenopathy identified. Small left hepatic cyst is stable. No further follow-up of this abnormality. Evaluation of the upper abdominal organs is limited by lack of IV contrast, however there are no significant gross morphologic abnormalities of the visualized organs stable appearing left rib deformities with no suspicious osteoblastic or osteolytic bone lesions. IMPRESSION: 1. Improved centrilobular nodular opacities in the right lower lung, though few small nodules persist. Follow-up CT scan in 6-12 months to ensure resolution is encouraged. 2. Other chronic stable changes as described. PQRS Compliance Statement: One or more of the following individualized dose reduction techniques were utilized for this examination: 1. Automated exposure control 2. Adjustment of the mA and/or kV according to patient size 3. Use of iterative reconstruction technique Electronically signed by: Mau Baron MD (02/29/2020 2:08 PM) [id number]
== END | disposition home or self-care (01) ==
LOC: KCIC CT 09:19
PROVIDERS: ATTEND Internal Medicine Pulmonary Disease
DX: J98.11 Atelectasis (principal); R91.8 Other nonspecific abnormal finding of lung field; J47.9 Bronchiectasis, uncomplicated; I51.7 Cardiomegaly; I25.10 Atherosclerotic heart disease of native coronary artery without angina pectoris; K76.89 Other specified diseases of liver; J98.4 Other disorders of lung; J84.10 Pulmonary fibrosis, unspecified
CPT/HCPCS: 71250